=== PATIENT | female | born 1980 ===

== ENCOUNTER → 2017-03-19 | Outpatient (CLI) | payer OTHER ==
[~2017-03-19] MED LIST: ACYC5CRE4 TP; AMOX500T10 PO; CHOL500050 PO; CIPR-214 PO; ERYT1OIN3 OP; LEUP3.753 IM; TAMO20TA24 PO; TRIA15CR40 TP; [UNRECOGNIZED DRUG - OTHER] OP
--- NOTE | 2017-03-20 18:13 | RADIOLOGY IMAGING REPORT ---
FACILITY: [facility] [place] PATIENT NAME: PEGGY BYRD : [id number] MR: [id number] V: [id number] EXAM DATE: [id number] ORDERING PHYSICIAN: GAGE PARKER TECHNOLOGIST: Thao Mc EXAMINATION:TWO-DIMENSIONAL ECHOCARDIOGRAPH REASON:BREAST CA UNDERGOING CHEMO 2D Measurements (normal values in centimeters) LV endLV endRV endVent.LV PostAorticLeftPercent DiastolicSystolicDiastolicSeptumWallRootAtriumShortening (3.5-5.7)(0.9-2.6)(0.6-1.1)(0.6-1.1)(2.0-3.7)(1.9-4.0)(25-35%) [id number] STROKE VOLUME: 41.3ml ESTIMATED EJECTION FRACTION:60% PARASTERNAL LONG AXIS: Overall left ventricular systolic function does appear to be normal. The chamber sizes are normal with the right ventricle being the upper range of normal in size. Aortic valve & mitral valve both appear to open normally. No wall motion abnormalities are noted. Color examination of the valves reveals a trace of mitral insufficiency present. There is also a mild amount of tricuspid insufficiency present. Right ventricle appears to contract normally. The TAPSE is measured at 2.3 which is within normal ranges. PARASTERNAL SHORT AXIS: Overall left ventricular function again appears to be normal. No wall motion abnormalities are noted. The aortic valve is trileaflet in configuration & appears to open normally. Color examination of the valve was unremarkable. Trace of pulmonic insufficiency is also noted. APICAL FOUR AND TWO CHAMBER: Normal left ventricular systolic function. The aortic valve area & mitral valve area both measure within normal ranges at 2.5 & 3.1cm2 respectively. Left atrial & right atrial volumes are measured within normal ranges at 18.5 & 15.6ml/m2. Tricuspid regurgitation Vmax measured 3.08m/sec with an estimated right atrial pressure of 3mm Hg. There is a mild amount of tricuspid insufficiency noted. SUBCOSTAL VIEW: No pericardial effusion was noted. No atrioseptal or ventriculoseptal defects were appreciated. Doppler examination of the mitral valve in diastole was normal. Medial & lateral E prime velocities are also normal. OVERALL IMPRESSION: 1. Normal left ventricular ejection fraction of 60% with normal diastolic function. 2. Normal chamber sizes with the right ventricle being the upper range of normal in size. 3. A trileaflet aortic valve with no abnormalities. 4. There is a trace amount of mitral insufficiency with no mitral stenosis. 5. A trace amount of pulmonic insufficiency. 6. A mild amount of tricuspid insufficiency with an estimated right ventricular systolic pressures of 41mm Hg which does include an estimated right atrial pressure of 3mm Hg. 7. In comparison with the examination done on 12/08/2016 the only change is that the right ventricular pressures have slightly increased from 27 to 41mm Hg which is slightly elevated. Dictated by: Diana Browning M.D. on 03/19/2017 at 20:37 Transcribed by: MARGY on 03/20/2017 at 11:29 Approved by: Diana Browning M.D. on 03/20/2017 at 18:11 [facility]
== END ==
LOC: RAD 00:37
PROVIDERS: ATTEND Nurse Practitioner Family
DX: I34.0 Nonrheumatic mitral (valve) insufficiency (principal); I37.1 Nonrheumatic pulmonary valve insufficiency; I07.1 Rheumatic tricuspid insufficiency
CPT/HCPCS: 93306

== ENCOUNTER → 2017-03-25 | Outpatient (CLI) | payer OTHER ==
[~2017-03-25] MED LIST changes: +IOPAMIDOL 76% 75 ML INFUS BTL 75 ML ONE
--- NOTE | 2017-03-25 12:06 | RADIOLOGY IMAGING REPORT ---
FAC[place] [facility] [place]IENT NAME: Kyra Clifton : 1980 MR: [id number] V: [id number] EXAM DATE: ORDERING PHYSICIAN: CINDY MATHUR TECHNOLOGIST: Location: [facility] [place] Patient: Kyra Clifton : 1980 Visit/Account:[id number] Date of Sevice: 03/25/2017 CTA CHEST with contrast (PULM ANG) EXAMINATION: CTA of the chest with IV contrast History : Breast cancer, elevated d-dimer, shortness of breath TECHNIQUE: Pulmonary embolus protocol - Thin-slice axial imaging of the chest was performed during maximal pulmonary arterial opacification with intravenous nonionic iodinated contrast. 3D coronal sla b MIPs and 2D reconstructions in the coronal and sagittal planes were performed to aid in pulmonary e mbolus detection. Referral Nurse images have been stored on PACS. One of the following dose optimization techniques was utilized in the performance of this exam: Autom ated exposure control; adjustment of the mA and/or kV according to the patient's size; or use of an i terative reconstruction technique. Specific details can be referenced in the facility's radiology C T exam operational policy. Contrast: 75 cc of Isovue-370 COMPARISON STUDIES: CT scan 05/27/2016. FINDINGS: Please note that this exam is optimized for assessment of the pulmonary arteries and is not intended as a diagnostic study of the thoracic aorta, coronary arteries or venous structures. Angiographic Findings: Pulmonary arteries: There are no filling defects in the main, right, left, lobar, segmental or visual ized sub-segmental branches of the pulmonary arterial system Other vasculature: Left-sided chemotherapy port has the tip just in the right heart.. Additional non-angiographic findings: Lungs / Pleura: Calcified granuloma right middle lobe is noted image 50, unchanged. 2 mm micronodule right upper lobe image 26 is stable 2 mm micronodule right upper lobe image 29 is also stable. No new or developing pulmonary nodules.. Mediastinum / Heather: negative. Heart / Pericardium: negative. Lymph node assessment: negative Musculoskeletal / Body wall: Previously described spiculated density in the right superior breast i s once again noted may represent the treated primary neoplasm. No pathologic axillary or internal ma mmary adenopathy. Stable sclerosis of the T9 vertebral bodies noted potentially metastatic. There is also sclerosis of the T1 spinous process which is also likely metastatic in retrospect present on prior study but more sclerotic on the current exam. No new sites of osseous metastatic disease. Upper abdomen: negative IMPRESSION: 1. No evidence for pulmonary emboli the subsegmental level. 2. Sclerosis of the spinous process of T1 is more prominent than prior study and likely metastatic. Sclerosis of the T9 vertebral body is unchanged also potentially metastatic. 3. Ill-defined density superior right breast is unchanged presumably the primary neoplasm. 4. 2 tiny noncalcified micronodules in the right upper lobe are stable. Results were called to LILY Milian for CINDY MATHUR at 03/25/2017 12:01 PM. Report Dictated By: Thien Medrano MD at 03/25/2017 11:35 AM Report E-Signed By: Thien Medrano MD at 03/25/2017 12:02 PM WSN:[id number]
== END ==
LOC: CT 10:00
PROVIDERS: ATTEND Internal Medicine Medical Oncology
DX: J84.10 Pulmonary fibrosis, unspecified (principal); R91.8 Other nonspecific abnormal finding of lung field; M48.8X4 Other specified spondylopathies, thoracic region
CPT/HCPCS: 71275; Q9967

== ENCOUNTER → 2017-03-27 | Outpatient (CLI) | payer OTHER ==
[~2017-03-27] MED LIST changes: -IOPAMIDOL 76% 75 ML INFUS BTL 75 ML ONE
--- NOTE | 2017-03-27 19:58 | RADIOLOGY IMAGING REPORT ---
FACILITY: [facility] - [place] PATIENT NAME: Kyra Clifton : 1980 MR: [id number] V: [id number] EXAM DATE: ORDERING PHYSICIAN: CINDY MATHUR TECHNOLOGIST: Location: [facility] Patient: Kyra Clifton : 1980 Visit/Account:[id number] Date of Sevice: 03/27/2017 THYROID HISTORY: Localized swelling, left. Dysphasia. History of breast cancer. COMPARISON: None FINDINGS: SIZE: Right lobe: 5.2 x 2.0 x 2.0 cm Left lobe: 5.0 x 1.7 x 1.8 cm Isthmus: 4 mm Thyroid heterogeneity: Heterogeneous bilaterally NODULES: Right lobe: * None discrete. Left lobe: * Well-circumscribed, solid, slightly hypoechoic nodule with a lucent border measures 3.9 x 1.8 x 1. 4 cm. Isthmus: * None discrete. VASCULARITY: Within normal limits. ADDITIONAL FINDINGS: None. IMPRESSION: Solid nodule in the left lobe of the thyroid measuring 3.9 cm in greatest dimension. This is low to i ntermediate suspicion and biopsy is recommended based on size criteria. REFERENCE: 2015 [employer] Thy[employer] Management Guidelines for Adult Patients with Thyroid Nodules and D ifferentiated Thyroid Cancer: The [place] Thyroid [employer] Guidelines Task Force on Thyroid Nodul es and Differentiated Thyroid Cancer. SONOGRAPHIC PATTERNS: * Benign: Purely cystic nodules (no solid component); estimated risk of malignancy <1 percent; no bi opsy recommended. * Very Low Suspicion: Spongiform or partially cystic nodules without any of the sonographic features described in low, intermediate, or high suspicion patterns; estimated risk of malignancy <3 percent; consider FNA at > 2 cm (Observation without FNA is also a reasonable option). * Low Suspicion: Isoechoic or hyperechoic solid nodule, or partially cystic nodule with eccentric so lid areas, without microcalcification, irregular margin or ETE (extra-thyroidal extension), or taller than wide shape; estimated risk of malignancy 5-10 percent; recommend FNA at >1.5 cm. * Intermediate Suspicion: Hypoechoic solid nodule with smooth margins without microcalcifications, E TE (extra-thyroidal extension), or taller than wide shape; estimated risk of malignancy 10-20 percent ; recommend FNA at > 1 cm. * High Suspicion: Solid hypoechoic nodule or solid hypoechoic component of a partially cystic nodule with one or more of the following features: irregular margins (infiltrative, microlobulated), microc alcifications, taller than wide shape, rim calcifications with small extrusive soft tissue component, evidence of ETE (extra-thyroidal extension); estimated risk of malignancy >70-90 percent; recommend FNA at > 1 cm. NOTES: * Although a sonographically suspicious subcentimeter thyroid nodule without evidence of extrathyroi marlo extension or sonographically suspicious lymph nodes may be observed with close sonographic follow -up rather than pursuing immediate FNA, patient age and preference may modify decision-making. * A > 50% interval increase in nodule volume and/or development of new suspicious sonographic featur es are felt to be a valid reasons for potential re-aspiration of a nodule previously shown to have be nign FNA cytology. Report Dictated By: Kathrin Goodman MD at 03/27/2017 7:50 PM Report E-Signed By: Kathrin Goodman MD at 03/27/2017 7:54 PM WSN:[id number]
== END ==
LOC: US 14:01
PROVIDERS: ATTEND Internal Medicine Medical Oncology
DX: E04.1 Nontoxic single thyroid nodule (principal)
CPT/HCPCS: 76536

== ENCOUNTER → 2017-04-10 | Outpatient (CLI) | payer OTHER ==
[~2017-04-10] MED LIST changes: +ACYC-50 PO; +CEF300 PO; +CORED OT; +FLU150 PO
--- NOTE | 2017-04-10 10:20 | RADIOLOGY IMAGING REPORT ---
FACILITY: [facility] - [place] PATIENT NAME: Kyra Clifton : 1980 MR: [id number] V: [id number] EXAM DATE: ORDERING PHYSICIAN: KEVEN TUTTLE TECHNOLOGIST: Location: [facility] - [place] Patient: Kyra Clifton : 1980 Visit/Account:[id number] Date of Sevice: 04/10/2017 Exam type: CHEST PA AND LAT History: Shortness of breath Comparison: CTA chest report 2017. Findings: The lungs are free of acute effusions, infiltrates or edema. The cardiac silhouette is normal in siz e. The trachea is in midline. There is no evidence of a pneumothorax or pneumomediastinum. There i s an implanted left-sided port the distal tip projects at the aortocaval junction. IMPRESSION: 1. No acute cardiopulmonary process seen Report Dictated By: Lissette Gonzales MD at 04/10/2017 10:13 AM Report E-Signed By: Lissette Gonzales MD at 04/10/2017 10:15 AM WSN:[id number]
== END ==
LOC: RAD 09:15
PROVIDERS: ATTEND Nurse Practitioner Primary Care
DX: Z96.89 Presence of other specified functional implants (principal); Z95.828 Presence of other vascular implants and grafts
CPT/HCPCS: 71046

== ENCOUNTER 2017-04-14 08:55 | Outpatient (RCR) | payer OTHER ==
[2017-01-19 08:34] VITALS: BP 120/89
[2017-01-19] MEDS: NS(*) 0.9% 500 ML BAG 500 ML IV PRN (09:07)
[2017-01-19] MEDS: diphenhydrAMINE 25 MG CAP PO PRN (09:08)
[2017-01-19] MEDS: ACETAMINOPHEN 325 MG TAB PO PRN (09:08)
--- NOTE | 2017-01-19 09:18 | ONC Progress Note - NP.Halsey ---
Patient History Date of Service Jan 19, 2017 Reason For Visit/HPI Patient is seen in the clinic today for follow-up of her breast cancer. Patient continues with Herceptin and Perjeta and will receive cycle 37 today. Patient reports that she is feeling well today and has no new concerns. She continues to have stable back pain and takes no medication for it. She continues to have some tenderness in the left breast lateral aspect but cannot feel any palpable mass. She will follow with Dr. Mathur next week and is supposed to call and schedule a PET/CT scan prior to this appointment. Problem List (1) Metastatic breast carcinoma Oncology History 04-06-15 US pelvis- remarkable for a 2.6 left ovarian cyst and 1.3 cm right ovarian cyst. 04-06-15 Echocardiogram with an LVEF -of 63%- remains stable 04-06-15 Bilateral mammogram- further view recommended. Consider MRI breast if needed 05-04-15 Right mammogram with benign finding- repeat in 3-6 months: loosely grouped calcifications in the upper outer quadrant of the right breast with no pleomorphism unless the clinical findings warrant more immediate attention. 06-28-15: PET/CT showed uptake in endometrial cavity and a lesion on labia. Transvaginal US scheduled. 10-05-15 Echocardiogram EF was 67% Bilateral MRI of the breast completed on 11-12-15 BI-RADS 6: Multiple areas of clumped, non-mass like enhancement seen in the upper lateral and inferior lateral portion of the right breast similar in appearance to the prior outside MR dated 06/19/14 consistent with the history of known metastatic right breast cancer. Correlation with followup right mammogram is recommended given the previous findings of slightly increasing calcifications upper outer quadrant of the right breast as seen on the mammogram from 05/04/15. - recommendation was from mammogram on 05-04-15 Perjeta and Herceptin and Tamoxifen ongoing. Tumor markers remain stable in the 20 range- slightly increased to 25 on 05-22-15 and then back down to 23.6 on 06-29-15 and 23.0 on 07-20-1509/2615: CEA was 1.5 and CA 27.29 2 was 26. 10/29/15: CEA was 1.4, CA 27.29 was 26.8 01-23-16 CEA was 1.3 and CA 27.29 was 28.7 02/13/2016 CEA was 1.3 and CA 27.29 is 25.7 01/18/16: PET scan has SUV elevation from previous study in the thoracic and lumbar spine. MRI of Lumbar spine and thoracic spine completed on and remains relatively stable from previous. It is noted that patient has osseous metastases at T1 and T9 consistent with treated metastatic foci, and L4 treated pedicle and articular mass. Patient has not received any radiation therapy to the area. 02/11/15: MRI L/T spine: T1 and T9 osseous metastases as detailed above with imaging features consistent with treated metastatic foci. L4 left pedicle and articular mass metastasis as detailed above. The differential diagnosis would include a treated metastatic focus versus localized stress reaction without complete spondylolysis. L2-3 focal central disc protrusion (5 mm) resulting in localized secondary central canal stenosis due to thecal sac effacement from focal disc pathology. 03-05-16 breast disease discussed at tumor Board in [place]. Biopsy of T- spine lesion is recommended. No local breast surgery recommended. 03/21/16: PET/CT scan identified pre-existing osseous lesions that are slightly more metabolically active and on previous examination. Nodular densities in the lateral aspect of the right breast remains stable and have low level metabolic activity. There is no evidence of abnormal hyper metabolism elsewhere. Right upper lobe subpleural micronodules are stable and continued to be non- hypermetabolic. 03/26/2016: Patient will start Lupron 3.75 mg injections given monthly 2-3 months. She plans on having a complete hysterectomy in June when her sister can come to the [place] and help take care of her kids. Patient would like the 2nd dose to go through mail-order delivery due April 25. She was scheduled for 2-3 injections and will continue on oral tamoxifen daily. 05/13/2016 MRI T-spine: Bone metastasis and spinous process and bilateral lamina at T1 slightly increased enhancement, T9 unchanged 05/16/2016: Biopsy of T1: Positive for breast cancer primary, development of lower back pain 05/28/16 Mammogram identified a new calcification of the right upper breast. 06/04/2016 MRI L-spine, patient reports improving pain. Patient reports that she received 5 doses of radiation therapy to the L-spine in the [facility]. Patient also shares that she had her ovaries removed in [place]. Specific date is unknown. 07/05/[address] Mathur in [facility]: Discontinued Lupron, continue tamoxifen, PET/CT 08/04/2016 and follow-up, mammogram yearly, echocardiogram every 3 months, continue Herceptin and Perjeta. 08-22-16 left ventricular ejection fraction reported at 61% just decreased from previous 71% otherwise study remained stable when compared to previous 11/18/2016: Patient reports PET/CT scan reviewed with Dr. Mathur was essentially unremarkable. MRI of the lumbar spine shows resolution or stable previously treated metastatic disease. MRI of the breast scheduled for today was not completed due to not being authorized by insurance. This will be rescheduled. Patient reports that she will follow with the surgeon to discuss possible breast surgery. 12/08/2016: Left ventricular ejection fraction on 2-D echocardiogram is stable at 60% Medical History Family History: FH: breast cancer MOTHER Psychosocial History Social History Patient is and has 2 daughters Occupational History She is a at home Alcohol History She denies use Smoking History: No Smoking Status: Never Smoker Medications and Allergies Active Scripts Cholecalciferol (Vitamin D3) (VITAMIN D3) 50,000 Unit Capsule, 07541 UNIT PO weekly, #14 CAPSULE Prov:GAGE [facility]-, ONC 04/16/16 Triamcinolone Acetonide 0.1% Cr 15 Gm Tube (TRIAMCINOLONE ACETONIDE 0.1% CREAM) 15 Gm Cream..g., 15 GM TP BID, #1 TUBE 1 Refill Prov:[facility]AGE [facility]-, ONC 04/16/16 Tamoxifen Citrate (TAMOXIFEN CITRATE) 20 Mg Tablet, 20 MG PO DAILY, #90 TAB 3 Refills Prov:[facility]AGE [facility]-, ONC 03/20/16 Allergies: Coded Allergies: povidone-iodine (Verified Allergy, Mild, UNKNOWN, 03/19/15) soap (Verified Allergy, Mild, UNKNOWN, 03/19/15) chlorhexidine (Verified Allergy, Unknown, RASH, 07/03/15) nystatin (Verified Allergy, Unknown, 03/19/15) Review of System/Physical Exam Review of Systems All Systems Reviewed/Normal: Yes, Except as Noted Musculoskeletal: Positive for Bone Pain (stable back pain), Positive for Other (tenderness in the left axillary area of known breast cancer without evidence of palpable mass) Physical Exam Vital Signs Temperature: 96.9 Pulse: 81 BP Systolic: 120 BP Diastolic: 89 Respiratory Rate: 16 O2 SAT: 94 O2 Delivery: Room Air Height (inches) 62.00 Weight lb: 0 Weight oz: 3.0 Weight Kg (Dilip): 0.526254 Pain: 0 ECOG Score: 0 General: Stable, Well Developed, Well Nourished, Not In Acute Distress HEENT: No Trauma, No Conjunctivitis, No Icterus, No Mucositis, No Oral Thrush, Other (patient is due for a yearly dental exam and we'll schedule it in February) Neck: Supple Lungs: Clear to Auscultation Heart: Regular Rate, Regular Rhythm, No Gallops Abdomen: Soft and Nontender, No Hepatosplenomegaly, No Masses Extremities: No Cyanosis, No Clubbing, No Edema Lymphadenopathy: No Cervical, No Subclavicular, No Axillary Psychiatric: Mood appears normal, Affect appears normal Skin: No Skin Rashes, No Bruising, No Purpura Diagnostic Studies Diagnostic Studies Laboratory Laboratory Tests 01/19/17 08:30 Laboratory Tests 01/19/17 08:30: White Blood Count 3.8, Hemoglobin 13.3, Hematocrit 37.8, Platelet Count 176, Neutrophils (%) (Auto) 53.6, Lymphocytes (%) (Auto) 34.9, Neutrophils # (Auto) 2.0, Lymphocytes # (Auto) 1.3, Sodium Level 140, Potassium Level 4.0, Chloride Level 105, Carbon Dioxide Level 25, Blood Urea Nitrogen 15, Creatinine 0.70, Glomerular Filtration Rate Calc > 60.0, Random Glucose 88, Calcium Level 9.2, Total Bilirubin 0.6, Aspartate Amino Transf (AST/SGOT) 31, Alanine Aminotransferase (ALT/SGPT) 57, Alkaline Phosphatase 50, Total Protein 7.0, Albumin 3.7 Assessment and Plan Assessment & Plan 1. Metastatic breast cancer. Patient is a 36 year old female who initially presented with painful palpable lump in her right breast in early March,. Mammogram showed moderately dense fibroglandular tissue and a spiculated nodule measuring 1.7 cm in the upper outer breast. Right upper outer breast cancer - primary. She was also found to have metastatic disease in her bone- L spine, making her stage 4. PET scan completed on 03/21/2016 showed increased hypermetabolic activity in the spine without other areas of disease process with activity. She started on Lupron 3.75 mg injection given monthly on 03/28/2016 to complete 2-3 months followed with hysterectomy in June which was completed. . Patient reports completing radiation therapy to 5 doses to the L-spine status post biopsy identifying metastatic disease consistent with primary breast cancer which was completed in [place]. Repeat MRI indicates stable disease which was completed November 2016. PET/CT scan was without evidence of new disease. Patient is scheduled for MRI of the breast and surgical consult to discuss treatment options for palpable mass and pain in the left breast in December. She will continue on Herceptin and Perjeta every 21 days and follow with myself in the [facility]. Patient will continue on tamoxifen 20 mg daily. 2-D echocardiogram for evaluation of left ventricular ejection fraction was reported at 60% on 12/08/2016. Tumor markers reviewed today and remained stable Patient will follow with Dr. Mathur next week with a PET/CT scan prior 2. The patient previously has had a slight elevation in ALT. I will continue to monitor labs prior to each Herceptin/Perjeta- labs are normal today 3. Vitamin D deficiency: On 03/05/2016 patient's vitamin D level was 15. Patient was encouraged to increase vitamin D oral intake. However reports that she did not start any medication. Repeat vitamin D level on 03/26/2016 was at 16. Patient was started on 50,000 units of vitamin D weekly 7 weeks with a recommendation of 2000 units daily. Last vitamin D level was reported at 25 on 10/28/2016. Patient has not continued with 2000 units daily of vitamin D but is encouraged to continue. I personally spent a total of 20 minutes. Of that 15 minutes was counseling/ coordination of patient's care. See my note above for details. Copies to: CINDY MATHUR MD, NANCY J [employer], ONC Jan 19, 2017 09:18
[2017-01-19] MEDS: HEPARIN FLSH (PORT) 500 UN/5ML IVP PRN (11:00)
[2017-01-19 11:17] VITALS: BP 120/79
[2017-02-10 10:26] VITALS: BP 120/88
[2017-02-10] MEDS: NS(*) 0.9% 500 ML BAG 500 ML IV PRN (11:13)
[2017-02-10] MEDS: diphenhydrAMINE 25 MG CAP PO PRN (11:13)
[2017-02-10] MEDS: ACETAMINOPHEN 325 MG TAB PO PRN (11:13)
--- NOTE | 2017-02-10 11:20 | ONC Progress Note - NP.Halsey ---
Patient History Date of Service Feb 10, 2017 Reason For Visit/HPI Patient is seen in the clinic today for follow-up of her breast cancer. Patient continues with Herceptin and Perjeta and will receive cycle 38 today. Overall patient is feeling well. She continues to have mild back pain in the thoracic area off and on. She does not take any pain medications at this time. Patient shares that she recently followed with Dr. Gastelum and had a PET CT scan completed on 02/03/2017. PET/CT is remarkable for 2 nodular densities in the right breast that have increased in size, a new hypermetabolic 0.8 cm right subpectoral lymph node, and a pre-existing sclerotic lesion in the posterior elements of T1 which is now slightly hypermetabolic. Patient shares that she review these results with Dr. Gastelum and they discussed bilateral mastectomy. Patient previously has consult it with breast surgeon. She is interested in having bilateral reconstruction post mastectomy. Patient is emotional today regarding this decision. She is trying to get her sister to come back in to the [facility] to watch her children. She is looking at April for her surgery date. In review of vitamin D level which has been low, a short reports that she is currently not taking vitamin D. She does not like the smell of it and it makes her nauseous. We did discuss the use of chewable vitamin D. In addition previously I have prescribed 50,000 units weekly 12 weeks and patient is interested in this. Oncology History 04-06-15 US pelvis- remarkable for a 2.6 left ovarian cyst and 1.3 cm right ovarian cyst. 04-06-15 Echocardiogram with an LVEF -of 63%- remains stable 04-06-15 Bilateral mammogram- further view recommended. Consider MRI breast if needed 05-04-15 Right mammogram with benign finding- repeat in 3-6 months: loosely grouped calcifications in the upper outer quadrant of the right breast with no pleomorphism unless the clinical findings warrant more immediate attention. 06-28-15: PET/CT showed uptake in endometrial cavity and a lesion on labia. Transvaginal US scheduled. 10-05-15 Echocardiogram EF was 67% Bilateral MRI of the breast completed on 11-12-15 BI-RADS 6: Multiple areas of clumped, non-mass like enhancement seen in the upper lateral and inferior lateral portion of the right breast similar in appearance to the prior outside MR dated 06/19/14 consistent with the history of known metastatic right breast cancer. Correlation with followup right mammogram is recommended given the previous findings of slightly increasing calcifications upper outer quadrant of the right breast as seen on the mammogram from 05/04/15. - recommendation was from mammogram on 05-04-15 Perjeta and Herceptin and Tamoxifen ongoing. Tumor markers remain stable in the 20 range- slightly increased to 25 on 05-22-15 and then back down to 23.6 on 06-29-15 and 23.0 on 07-20-1509/2615: CEA was 1.5 and CA 27.29 2 was 26. 10/29/15: CEA was 1.4, CA 27.29 was 26.8 01-23-16 CEA was 1.3 and CA 27.29 was 28.7 02/13/2016 CEA was 1.3 and CA 27.29 is 25.7 01/18/16: PET scan has SUV elevation from previous study in the thoracic and lumbar spine. MRI of Lumbar spine and thoracic spine completed on and remains relatively stable from previous. It is noted that patient has osseous metastases at T1 and T9 consistent with treated metastatic foci, and L4 treated pedicle and articular mass. Patient has not received any radiation therapy to the area. 02/11/15: MRI L/T spine: T1 and T9 osseous metastases as detailed above with imaging features consistent with treated metastatic foci. L4 left pedicle and articular mass metastasis as detailed above. The differential diagnosis would include a treated metastatic focus versus localized stress reaction without complete spondylolysis. L2-3 focal central disc protrusion (5 mm) resulting in localized secondary central canal stenosis due to thecal sac effacement from focal disc pathology. 03-05-16 breast disease discussed at tumor Board in [place]. Biopsy of T- spine lesion is recommended. No local breast surgery recommended. 03/21/16: PET/CT scan identified pre-existing osseous lesions that are slightly more metabolically active and on previous examination. Nodular densities in the lateral aspect of the right breast remains stable and have low level metabolic activity. There is no evidence of abnormal hyper metabolism elsewhere. Right upper lobe subpleural micronodules are stable and continued to be non- hypermetabolic. 03/26/2016: Patient will start Lupron 3.75 mg injections given monthly 2-3 months. She plans on having a complete hysterectomy in June when her sister can come to the [place] and help take care of her kids. Patient would like the 2nd dose to go through mail-order delivery due April 25. She was scheduled for 2-3 injections and will continue on oral tamoxifen daily. 05/13/2016 MRI T-spine: Bone metastasis and spinous process and bilateral lamina at T1 slightly increased enhancement, T9 unchanged 05/16/2016: Biopsy of T1: Positive for breast cancer primary, development of lower back pain 05/28/16 Mammogram identified a new calcification of the right upper breast. 06/04/2016 MRI L-spine, patient reports improving pain. Patient reports that she received 5 doses of radiation therapy to the L-spine in the [facility]. Patient also shares that she had her ovaries removed in [place]. Specific date is unknown. 06/16/2016: Salpingo-oophorectomy Lupron discontinued 07/05/[address] Gastelum in [facility]: Continue tamoxifen, PET/CT 08/04/2016 and follow-up, mammogram yearly, echocardiogram every 3 months, continue Herceptin and Perjeta. 08/01/2016: PET/CT shows decreasing blastic bone disease previously seen. Mild glucose activity in the right breast slightly increased and a new focus of warm activity in the superior right breast. Warm activity in the subcentimeter right inguinal lymph node slightly increased. 7--17 left ventricular ejection fraction reported at 61% just decreased from previous 71% otherwise study remained stable when compared to previous 11/18/2016: Patient reports PET/CT scan reviewed with Dr. Gastelum was essentially unremarkable. MRI of the lumbar spine shows resolution or stable previously treated metastatic disease. MRI of the breast scheduled for today was not completed due to not being authorized by insurance. This will be rescheduled. Patient reports that she will follow with the surgeon to discuss possible breast surgery. 12/08/2016: Left ventricular ejection fraction on 2-D echocardiogram is stable at 60% 02/03/2017: PET/CT scan remarkable for 2 nodular densities in the right breast that it increased in size and hypermetabolic. There is a new hypermetabolic 0.8 cm right subpectoral node. Pre-existing sclerotic lesion in the posterior elements of T1 is now slightly hypermetabolic. Patient has consult did with surgery and is thinking about bilateral mastectomy with breast reconstruction in April. Medical History Family History: FH: breast cancer MOTHER Psychosocial History Social History Patient is and has 2 daughters Occupational History She is a at home Alcohol History She denies use Smoking History: No Smoking Status: Never Smoker Medications and Allergies Active Scripts Cholecalciferol (Vitamin D3) (VITAMIN D3) 50,000 Unit Capsule, 83864 UNIT PO weekly, #14 CAPSULE Prov:[facility]-, ONC 02/10/17 Triamcinolone Acetonide 0.1% Cr 15 Gm Tube (TRIAMCINOLONE ACETONIDE 0.1% CREAM) 15 Gm Cream..g., 15 GM TP BID, #1 TUBE 1 Refill Prov:[facility]-, ONC 04/16/16 Tamoxifen Citrate (TAMOXIFEN CITRATE) 20 Mg Tablet, 20 MG PO DAILY, #90 TAB 3 Refills Prov:[facility]-, ONC 03/20/16 Allergies: Coded Allergies: povidone-iodine (Verified Allergy, Mild, UNKNOWN, 03/19/15) soap (Verified Allergy, Mild, UNKNOWN, 03/19/15) chlorhexidine (Verified Allergy, Unknown, RASH, 07/03/15) nystatin (Verified Allergy, Unknown, 03/19/15) Review of System/Physical Exam Review of Systems All Systems Reviewed/Normal: Yes, Except as Noted Psychiatric: Depression, Other (patient is tearful today regarding her current disease status and the need for surgery.) Physical Exam Vital Signs Temperature: 97.8 Pulse: 94 BP Systolic: 120 BP Diastolic: 88 Respiratory Rate: 16 O2 SAT: 97 O2 Delivery: Room Air Height (inches) 62.00 Weight lb: 0 Weight oz: 3.0 Weight Kg (Dilip): 0.429815 Pain: 0 ECOG Score: 0 General: Stable, Well Developed, Well Nourished, Not In Acute Distress HEENT: No Conjunctivitis, No Mucositis, No Oral Thrush Neck: Supple Lungs: Clear to Auscultation Heart: Regular Rate, Regular Rhythm, No Gallops Abdomen: Soft and Nontender, No Hepatosplenomegaly, No Masses Extremities: No Cyanosis, No Clubbing, No Edema Lymphadenopathy: No Cervical, No Subclavicular, No Axillary Psychiatric: Mood appears normal, Affect appears normal, Other (patient is emotional today regarding upcoming surgery decision) Skin: No Skin Rashes, No Bruising, No Purpura Diagnostic Studies Diagnostic Studies Laboratory Laboratory Tests 02/10/17 10:07 Laboratory Tests 02/10/17 10:07: White Blood Count 6.1, Hemoglobin 13.4, Hematocrit 38.7, Platelet Count 197, Neutrophils (%) (Auto) 57.2, Lymphocytes (%) (Auto) 32.3, Neutrophils # (Auto) 3.5, Lymphocytes # (Auto) 2.0, Sodium Level 139, Potassium Level 4.1, Chloride Level 105, Carbon Dioxide Level 26, Blood Urea Nitrogen 10, Creatinine 0.60, Glomerular Filtration Rate Calc > 60.0, Random Glucose 81, Calcium Level 9.1, Total Bilirubin 0.5, Aspartate Amino Transf (AST/SGOT) 35, Alanine Aminotransferase (ALT/SGPT) 43, Alkaline Phosphatase 70, Total Protein 7.2, Albumin 3.6 Assessment and Plan Assessment & Plan 1. Metastatic breast cancer. Patient is a 36 year old female who initially presented with painful palpable lump in her right breast in early March,. Mammogram showed moderately dense fibroglandular tissue and a spiculated nodule measuring 1.7 cm in the upper outer breast. Right upper outer breast cancer - primary. She was also found to have metastatic disease in her bone- L spine, making her stage 4. PET scan completed on 03/21/2016 showed increased hypermetabolic activity in the spine without other areas of disease process with activity. She started on Lupron 3.75 mg injection given monthly on 03/28/2016 to complete 2-3 months followed with hysterectomy in June which was completed. . Patient reports completing radiation therapy to 5 doses to the L-spine status post biopsy identifying metastatic disease consistent with primary breast cancer which was completed in [place]. Repeat MRI indicates stable disease which was completed November 2016. PET/CT scan was without evidence of new disease. Patient had a MRI of the breast and surgical consult to discuss treatment options for palpable mass in the left breast in December. She will revisit with the surgeon in the near future to discuss bilateral mastectomy with breast reconstruction possibly in April of this year. She will continue on Herceptin and Perjeta every 21 days and follow with myself in the [facility]. Patient will continue on tamoxifen 20 mg daily. 2-D echocardiogram for evaluation of left ventricular ejection fraction was reported at 60% on 12/08/2016. Tumor markers reviewed today. They do not reflect the increasing disease noted on PET CT scan completed on 02/03/2017. Patient is recently followed with Dr. Gastelum to discuss these results. 2. The patient previously has had a slight elevation in ALT. I will continue to monitor labs prior to each Herceptin/Perjeta- labs are normal today- we will continue to monitor 3. Vitamin D deficiency: On 03/05/2016 patient's vitamin D level was 15. Patient was encouraged to increase vitamin D oral intake. However reports that she did not start any medication. Repeat vitamin D level on 03/26/2016 was at 16. Patient was started on 50,000 units of vitamin D weekly 7 weeks with a recommendation of 2000 units daily. Last vitamin D level was reported at 25 on 10/28/2016. Patient has not continued with 2000 units daily of vitamin D but is encouraged to continue. She is more interested in the 50,000 units weekly. I will send a prescription to [facility] today. Patient then is encouraged to do oral 2000 units daily and try the chewables to see if they are better tolerated. 4. Bone metastases identified on PET/CT scan on 02/03/2017: Continue to monitor thoracic area with hypermetabolic disease at T1. 5. Patient is scheduled to follow with Dr. Gastelum in 3 months I personally spent a total of 20 minutes. Of that 15 minutes was counseling/ coordination of patient's care. See my note above for details. GAGE PARKER [employer], ONC Feb 10, 2017 11:20
[2017-02-10 12:58] VITALS: BP 117/81
[2017-02-10] MEDS: HEPARIN FLSH (PORT) 500 UN/5ML IVP PRN (13:02)
[2017-03-03 08:09] VITALS: BP 112/67
[2017-03-03] MEDS: diphenhydrAMINE 25 MG CAP PO PRN (08:42)
[2017-03-03] MEDS: NS(*) 0.9% 500 ML BAG 500 ML IV PRN (08:43)
[2017-03-03] MEDS: HEPARIN FLSH (PORT) 500 UN/5ML IVP PRN (08:43)
--- NOTE | 2017-03-03 09:16 | ONC Progress Note - NP.Halsey ---
Patient History Date of Service Mar 03, 2017 Reason For Visit/HPI Patient is seen in the clinic today for follow-up of her breast cancer. Patient continues with Herceptin and Perjeta and will receive cycle 39 today. She reports that she is feeling well and has not had any of the flulike symptoms that have been going around [place]. She has recently consult did with a breast surgeon and plastic surgeon to discuss mastectomy and breast reconstruction. She is scheduled to follow them on March 12. She reports that she will also follow with Dr. Mathur on March 19. She continues to have pain in her back which remains relatively stable. We discussed the use of vitamin D and she is currently taking the 50,000 units a week dose. She will try the oral gummy vitamin D tablets and see if she can tolerate them. She has no concerns today. Overall patient is feeling well. She continues to have mild back pain in the thoracic area off and on. She does not take any pain medications at this time. Patient shares that she recently followed with Dr. Mathur and had a PET CT scan completed on 02/03/2017. PET/CT is remarkable for 2 nodular densities in the right breast that have increased in size, a new hypermetabolic 0.8 cm right subpectoral lymph node, and a pre-existing sclerotic lesion in the posterior elements of T1 which is now slightly hypermetabolic. Patient shares that she review these results with Dr. Mathur and they discussed bilateral mastectomy. Patient previously has consult it with breast surgeon. She is interested in having bilateral reconstruction post mastectomy. Patient is emotional today regarding this decision. She is trying to get her sister to come [place]. She is looking at April for her surgery date. In review of vitamin D level which has been low, a short reports that she is currently not taking vitamin D. She does not like the smell of it and it makes her nauseous. We did discuss the use of chewable vitamin D. In addition previously I have prescribed 50,000 units weekly 12 weeks and patient is interested in this. Oncology History 04-06-15 US pelvis- remarkable for a 2.6 left ovarian cyst and 1.3 cm right ovarian cyst. 04-06-15 Echocardiogram with an LVEF -of 63%- remains stable 04-06-15 Bilateral mammogram- further view recommended. Consider MRI breast if needed 05-04-15 Right mammogram with benign finding- repeat in 3-6 months: loosely grouped calcifications in the upper outer quadrant of the right breast with no pleomorphism unless the clinical findings warrant more immediate attention. 06-28-15: PET/CT showed uptake in endometrial cavity and a lesion on labia. Transvaginal US scheduled. 10-05-15 Echocardiogram EF was 67% Bilateral MRI of the breast completed on 11-12-15 BI-RADS 6: Multiple areas of clumped, non-mass like enhancement seen in the upper lateral and inferior lateral portion of the right breast similar in appearance to the prior outside MR dated 06/19/14 consistent with the history of known metastatic right breast cancer. Correlation with followup right mammogram is recommended given the previous findings of slightly increasing calcifications upper outer quadrant of the right breast as seen on the mammogram from 05/04/15. - recommendation was from mammogram on 05-04-15 Perjeta and Herceptin and Tamoxifen ongoing. Tumor markers remain stable in the 20 range- slightly increased to 25 on 05-22-15 and then back down to 23.6 on 06-29-15 and 23.0 on 07-20-1509/2615: CEA was 1.5 and CA 27.29 2 was 26. 9: CEA was 1.4, CA 27.29 was 26.8 01-23-16 CEA was 1.3 and CA 27.29 was 28.7 02/13/2016 CEA was 1.3 and CA 27.29 is 25.7 01/18/16: PET scan has SUV elevation from previous study in the thoracic and lumbar spine. MRI of Lumbar spine and thoracic spine completed on and remains relatively stable from previous. It is noted that patient has osseous metastases at T1 and T9 consistent with treated metastatic foci, and L4 treated pedicle and articular mass. Patient has not received any radiation therapy to the area. 02/11/15: MRI L/T spine: T1 and T9 osseous metastases as detailed above with imaging features consistent with treated metastatic foci. L4 left pedicle and articular mass metastasis as detailed above. The differential diagnosis would include a treated metastatic focus versus localized stress reaction without complete spondylolysis. L2-3 focal central disc protrusion (5 mm) resulting in localized secondary central canal stenosis due to thecal sac effacement from focal disc pathology. 03-05-16 breast disease discussed at tumor Board in [place]. Biopsy of T- spine lesion is recommended. No local breast surgery recommended. 03/21/16: PET/CT scan identified pre-existing osseous lesions that are slightly more metabolically active and on previous examination. Nodular densities in the lateral aspect of the right breast remains stable and have low level metabolic activity. There is no evidence of abnormal hyper metabolism elsewhere. Right upper lobe subpleural micronodules are stable and continued to be non- hypermetabolic. 03/26/2016: Patient will start Lupron 3.75 mg injections given monthly 2-3 months. She plans on having a complete hysterectomy in June when her sister can come to the [facility] and help take care of her kids. Patient would like the 2nd dose to go through mail-order delivery due April 25. She was scheduled for 2-3 injections and will continue on oral tamoxifen daily. 05/13/2016 MRI T-spine: Bone metastasis and spinous process and bilateral lamina at T1 slightly increased enhancement, T9 unchanged 05/16/2016: Biopsy of T1: Positive for breast cancer primary, development of lower back pain 05/28/16 Mammogram identified a new calcification of the right upper breast. 06/04/2016 MRI L-spine, patient reports improving pain. Patient reports that she received 5 doses of radiation therapy to the L-spine in the [place] clinic. Patient also shares that she had her ovaries removed in [place]. Specific date is unknown. 06/16/2016: Salpingo-oophorectomy Lupron discontinued 07/05/[address] Mathur in [place] clinic: Continue tamoxifen, PET/CT 08/04/2016 and follow-up, mammogram yearly, echocardiogram every 3 months, continue Herceptin and Perjeta. 08/01/2016: PET/CT shows decreasing blastic bone disease previously seen. Mild glucose activity in the right breast slightly increased and a new focus of warm activity in the superior right breast. Warm activity in the subcentimeter right inguinal lymph node slightly increased. 08-22-16 left ventricular ejection fraction reported at 61% just decreased from previous 71% otherwise study remained stable when compared to previous 11/18/2016: Patient reports PET/CT scan reviewed with Dr. Mathur was essentially unremarkable. MRI of the lumbar spine shows resolution or stable previously treated metastatic disease. MRI of the breast scheduled for today was not completed due to not being authorized by insurance. This will be rescheduled. Patient reports that she will follow with the surgeon to discuss possible breast surgery. 12/08/2016: Left ventricular ejection fraction on 2-D echocardiogram is stable at 60% 02/03/2017: PET/CT scan remarkable for 2 nodular densities in the right breast that it increased in size and hypermetabolic. There is a new hypermetabolic 0.8 cm right subpectoral node. Pre-existing sclerotic lesion in the posterior elements of T1 is now slightly hypermetabolic. Patient has consult did with surgery and is thinking about bilateral mastectomy with breast reconstruction in April. 2017: Vitamin D level noted to be at 27. Patient started on 50,000 units of vitamin D weekly and encouraged to take 2000 units daily. Patient is not compliant with the daily dose. 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-, ONC 02/10/17 Triamcinolone Acetonide 0.1% Cr 15 Gm Tube (TRIAMCINOLONE ACETONIDE 0.1% CREAM) 15 Gm Cream..g., 15 GM TP BID, #1 TUBE 1 Refill Prov:GAGE PARKER [facility]-, ONC 04/16/16 Tamoxifen Citrate (TAMOXIFEN CITRATE) 20 Mg Tablet, 20 MG PO DAILY, #90 TAB 3 Refills Prov:GAGE PARKER [facility]-, ONC 03/20/16 Allergies: Coded Allergies: povidone-iodine (Verified Allergy, Mild, UNKNOWN, 03/19/15) soap (Verified Allergy, Mild, UNKNOWN, 03/19/15) chlorhexidine (Verified Allergy, Unknown, RASH, 07/03/15) nystatin (Verified Allergy, Unknown, 03/19/15) Review of System/Physical Exam Review of Systems All Systems Reviewed/Normal: Yes, Except as Noted Hematologic: Positive for Fatigue Musculoskeletal: Positive for Bone Pain Physical Exam Vital Signs Temperature: 97.0 Pulse: 88 BP Systolic: 112 BP Diastolic: 67 Respiratory Rate: 15 O2 SAT: 96 O2 Delivery: Room Air Height (inches) 62.00 Weight lb: 0 Weight oz: 3.0 Weight Kg (Dilip): 0.995631 Pain: 0 ECOG Score: 0 General: Stable, Well Developed, Well Nourished, Not In Acute Distress HEENT: No Trauma, No Conjunctivitis, No Icterus Neck: Supple Lungs: Clear to Auscultation Heart: Regular Rate, Regular Rhythm, No Gallops Abdomen: No Hepatosplenomegaly, No Masses Extremities: No Cyanosis, No Clubbing, No Edema Lymphadenopathy: No Cervical Psychiatric: Mood appears normal, Affect appears normal, Other (patient is slightly anxious regarding surgical procedure with mastectomy and breast reconstruction) Skin: No Skin Rashes, No Bruising, No Purpura Diagnostic Studies Diagnostic Studies Laboratory Item Value Date Time Vitamin D 25-Hydroxy 27 ng/ml L 02/10/17 1007 Carcinoembryonic Antigen 1.2 ng/mL 01/19/17 0830 CA 27-29 Antigen Serial Monitoring 25.5 U/mL 01/19/17 0830 Laboratory Tests 03/03/17 08:05 Laboratory Tests 02/10/17 10:07: Vitamin D 25-Hydroxy 27 03/03/17 08:05: White Blood Count 5.6, Hemoglobin 13.3, Hematocrit 37.7, Platelet Count 192, Neutrophils (%) (Auto) 58.2, Lymphocytes (%) (Auto) 28.7, Neutrophils # (Auto) 3.3, Lymphocytes # (Auto) 1.6, Sodium Level 140, Potassium Level 3.8, Chloride Level 105, Carbon Dioxide Level 24, Blood Urea Nitrogen 15, Creatinine 0.70, Glomerular Filtration Rate Calc > 60.0, Random Glucose 88, Calcium Level 9.2, Total Bilirubin 0.7, Aspartate Amino Transf (AST/SGOT) 25, Alanine Aminotransferase (ALT/SGPT) 50, Alkaline Phosphatase 81, Total Protein 7.3, Albumin 3.8 Assessment and Plan Assessment & Plan 1. Metastatic breast cancer. Patient is a 36 year old female who initially presented with painful palpable lump in her right breast in early March,. Mammogram showed moderately dense fibroglandular tissue and a spiculated nodule measuring 1.7 cm in the upper outer breast. Right upper outer breast cancer - primary. She was also found to have metastatic disease in her bone- L spine, making her stage 4. PET scan completed on 03/21/2016 showed increased hypermetabolic activity in the spine without other areas of disease process with activity. She started on Lupron 3.75 mg injection given monthly on 03/28/2016 to complete 2-3 months followed with hysterectomy in June which was completed. . Patient reports completing radiation therapy to 5 doses to the L-spine status post biopsy identifying metastatic disease consistent with primary breast cancer which was completed in [place]. Repeat MRI indicates stable disease which was completed November 2016. PET/CT scan was without evidence of new disease. Patient had a MRI of the breast and surgical consult to discuss treatment options for palpable mass in the left breast in December. She followed with the surgeon to discuss bilateral mastectomy with breast reconstruction possibly in April of this year. She will continue on Herceptin and Perjeta every 21 days and follow with myself in the [place] clinic. Patient will continue on tamoxifen 20 mg daily. 2-D echocardiogram for evaluation of left ventricular ejection fraction was reported at 60% on 12/08/2016. Patient is scheduled for her next echocardiogram on 03/16/2017. Tumor markers reviewed today and they remain relatively stable. They do not reflect the increasing disease noted on PET CT scan completed on 02/03/2017. Patient will follow with Dr. Mathur in March 2. The patient previously has had a slight elevation in ALT. I will continue to monitor labs prior to each Herceptin/Perjeta-labs have normalized. We will continue to monitor with each therapy session. 3. Vitamin D deficiency: On 03/05/2016 patient's vitamin D level was 15. Patient was encouraged to increase vitamin D oral intake. However reports that she did not start any medication. Repeat vitamin D level on 03/26/2016 was at 16. Patient was started on 50,000 units of vitamin D weekly 7 weeks with a recommendation of 2000 units daily. Last vitamin D level was reported at 25 on 10/28/2016. Patient has not continued with 2000 units daily of vitamin D but is encouraged to continue. She was interested in the 50,000 units weekly so this was started with her last office visit in February 2017. 4. Bone metastases identified on PET/CT scan on 02/03/2017: Continue to monitor thoracic area with hypermetabolic disease at T1. 5. Patient is scheduled to follow with Dr. Mathur in March. I personally spent a total of 20 minutes. Of that 15 minutes was counseling/ coordination of patient's care. See my note above for details. Copies to: CINDY MATHUR MD, NANCY J [employer]TR[employer]IC WELDING MACHINE OPERATOR-BC, ONC Mar 03, 2017 09:16
[2017-03-23 08:35] VITALS: BP 118/71
[2017-03-23 08:54] LABS: PLATELET COUNT, AUTOMATED 256 K/uL (150-450)
[2017-03-23] MEDS: NS(*) 0.9% 500 ML BAG 500 ML IV PRN (09:00)
[2017-03-23] MEDS: diphenhydrAMINE 25 MG CAP PO PRN (09:38)
[2017-03-23] MEDS: ACETAMINOPHEN 325 MG TAB PO PRN (09:38)
--- NOTE | 2017-03-23 10:59 | ONC Progress Note - NP.Halsey ---
Patient History Date of Service Mar 23, 2017 Reason For Visit/HPI Patient is seen in the clinic today for follow-up of her breast cancer. Patient continues with Herceptin and Perjeta and will receive cycle 40 today. She reports that she has had a sore throat with fever and chills off and on for the last 7-10 days. She denies bony aches or body aches. She has an earache on the left side. She denies any sinus discharge or sinus pain. She reports that her children have been healthy. She recently flew to [place]. She has been taking Tylenol for symptom relief. Patient recently completed a 2-D echocardiogram for left ventricular ejection fraction. Listed other results. Patient has been referred to cardiology. OVERALL IMPRESSION: 1. Normal left ventricular ejection fraction of 60% with normal diastolic function. 2. Normal chamber sizes with the right ventricle being the upper range of normal in size. 3. A trileaflet aortic valve with no abnormalities. 4. There is a trace amount of mitral insufficiency with no mitral stenosis. 5. A trace amount of pulmonic insufficiency. 6. A mild amount of tricuspid insufficiency with an estimated right ventricular systolic pressures of 41mm Hg which does include an estimated right atrial pressure of 3mm Hg. 7. In comparison with the examination done on 12/08/2016 the only change is that the right ventricular pressures have slightly increased from 27 to 41mm Hg which is slightly elevated. Problem List (1) Vitamin D deficiency (2) Bone metastasis (3) Estrogen receptor positive (4) Metastatic breast carcinoma Oncology History 04-06-15 US pelvis- remarkable for a 2.6 left ovarian cyst and 1.3 cm right ovarian cyst. 04-06-15 Echocardiogram with an LVEF -of 63%- remains stable 04-06-15 Bilateral mammogram- further view recommended. Consider MRI breast if needed 05-04-15 Right mammogram with benign finding- repeat in 3-6 months: loosely grouped calcifications in the upper outer quadrant of the right breast with no pleomorphism unless the clinical findings warrant more immediate attention. 06-28-15: PET/CT showed uptake in endometrial cavity and a lesion on labia. Transvaginal US scheduled. 10-05-15 Echocardiogram EF was 67% Bilateral MRI of the breast completed on 11-12-15 BI-RADS 6: Multiple areas of clumped, non-mass like enhancement seen in the upper lateral and inferior lateral portion of the right breast similar in appearance to the prior outside MR dated 06/19/14 consistent with the history of known metastatic right breast cancer. Correlation with followup right mammogram is recommended given the previous findings of slightly increasing calcifications upper outer quadrant of the right breast as seen on the mammogram from 05/04/15. - recommendation was from mammogram on 05-04-15 Perjeta and Herceptin and Tamoxifen ongoing. Tumor markers remain stable in the 20 range- slightly increased to 25 on 05-22-15 and then back down to 23.6 on 06-29-15 and 23.0 on 07-20-1509/2615: CEA was 1.5 and CA 27.29 2 was 26. 10/29/15: CEA was 1.4, CA 27.29 was 26.8 01-23-16 CEA was 1.3 and CA 27.29 was 28.7 02/13/2016 CEA was 1.3 and CA 27.29 is 25.7 01/18/16: PET scan has SUV elevation from previous study in the thoracic and lumbar spine. MRI of Lumbar spine and thoracic spine completed on and remains relatively stable from previous. It is noted that patient has osseous metastases at T1 and T9 consistent with treated metastatic foci, and L4 treated pedicle and articular mass. Patient has not received any radiation therapy to the area. 02/11/15: MRI L/T spine: T1 and T9 osseous metastases as detailed above with imaging features consistent with treated metastatic foci. L4 left pedicle and articular mass metastasis as detailed above. The differential diagnosis would include a treated metastatic focus versus localized stress reaction without complete spondylolysis. L2-3 focal central disc protrusion (5 mm) resulting in localized secondary central canal stenosis due to thecal sac effacement from focal disc pathology. 03-05-16 breast disease discussed at tumor Board in [place]. Biopsy of T- spine lesion is recommended. No local breast surgery recommended. 03/21/16: PET/CT scan identified pre-existing osseous lesions that are slightly more metabolically active and on previous examination. Nodular densities in the lateral aspect of the right breast remains stable and have low level metabolic activity. There is no evidence of abnormal hyper metabolism elsewhere. Right upper lobe subpleural micronodules are stable and continued to be non- hypermetabolic. 03/26/2016: Patient will start Lupron 3.75 mg injections given monthly 2-3 months. She plans on having a complete hysterectomy in June when her sister can come to the [place] and help take care of her kids. Patient would like the 2nd dose to go through mail-order delivery due April 25. She was scheduled for 2-3 injections and will continue on oral tamoxifen daily. 05/13/2016 MRI T-spine: Bone metastasis and spinous process and bilateral lamina at T1 slightly increased enhancement, T9 unchanged 05/16/2016: Biopsy of T1: Positive for breast cancer primary, development of lower back pain 05/28/16 Mammogram identified a new calcification of the right upper breast. 06/04/2016 MRI L-spine, patient reports improving pain. Patient reports that she received 5 doses of radiation therapy to the L-spine in the [facility]. Patient also shares that she had her ovaries removed in [place]. Specific date is unknown. 06/16/2016: Salpingo-oophorectomy Lupron discontinued 07/05/[address] Mathur in [facility]: Continue tamoxifen, PET/CT 08/04/2016 and follow-up, mammogram yearly, echocardiogram every 3 months, continue Herceptin and Perjeta. 08/01/2016: PET/CT shows decreasing blastic bone disease previously seen. Mild glucose activity in the right breast slightly increased and a new focus of warm activity in the superior right breast. Warm activity in the subcentimeter right inguinal lymph node slightly increased. 7--17 left ventricular ejection fraction reported at 61% just decreased from previous 71% otherwise study remained stable when compared to previous 11/18/2016: Patient reports PET/CT scan reviewed with Dr. Mathur was essentially unremarkable. MRI of the lumbar spine shows resolution or stable previously treated metastatic disease. MRI of the breast scheduled for today was not completed due to not being authorized by insurance. This will be rescheduled. Patient reports that she will follow with the surgeon to discuss possible breast surgery. 12/08/2016: Left ventricular ejection fraction on 2-D echocardiogram is stable at 60% 02/03/2017: PET/CT scan remarkable for 2 nodular densities in the right breast that it increased in size and hypermetabolic. There is a new hypermetabolic 0.8 cm right subpectoral node. Pre-existing sclerotic lesion in the posterior elements of T1 is now slightly hypermetabolic. Patient has consult did with surgery and is thinking about bilateral mastectomy with breast reconstruction in April. 2017: Vitamin D level noted to be at 27. Patient started on 50,000 units of vitamin D weekly and encouraged to take 2000 units daily. Patient is not compliant with the daily dose. left ventricular ejection fraction of 60% with normal diastolic function. 2. Normal chamber sizes with the right ventricle being the upper range of normal in size.3. A trileaflet aortic valve with no abnormalities.4. There is a trace amount of mitral insufficiency with no mitral stenosis.5. A trace amount of pulmonic insufficiency.6. A mild amount of tricuspid insufficiency with an estimated right ventricular systolic pressures of 41mm Hg which does include an estimated right atrial pressure of 3mm Hg.7. In comparison with the examination done on 12/08/2016 the only change is that the right ventricular pressures have slightly increased from 27 to 41mm Hg which is slightly elevated. Patient is referred to cardiology. Medical History Family History: FH: breast cancer MOTHER Psychosocial History Social History Patient is and has 2 daughters Occupational History She is a at home Alcohol History She denies use Smoking History: No Smoking Status: Never Smoker Medications and Allergies Active Scripts Cholecalciferol (Vitamin D3) (VITAMIN D3) 50,000 Unit Capsule, 47846 UNIT PO weekly, #14 CAPSULE Prov:GAGE PARKER [facility], ONC 02/10/17 Triamcinolone Acetonide 0.1% Cr 15 Gm Tube (TRIAMCINOLONE ACETONIDE 0.1% CREAM) 15 Gm Cream..g., 15 GM TP BID, #1 TUBE 1 Refill Prov:GAGE PARKER [facility], ONC 04/16/16 Tamoxifen Citrate (TAMOXIFEN CITRATE) 20 Mg Tablet, 20 MG PO DAILY, #90 TAB 3 Refills Prov:GAGE PARKER [facility]-, ONC 03/20/16 Allergies: Coded Allergies: povidone-iodine (Verified Allergy, Mild, UNKNOWN, 03/19/15) soap (Verified Allergy, Mild, UNKNOWN, 03/19/15) chlorhexidine (Verified Allergy, Unknown, RASH, 07/03/15) nystatin (Verified Allergy, Unknown, 03/19/15) Review of System/Physical Exam Review of Systems All Systems Reviewed/Normal: Yes, Except as Noted Constitutional: Positive for Fever/Chills/Sweating (reports a fever at home no fever today), Positive for Recent Infection HEENT: Sore Throat (reports very sore throat and a bump in the throat), Other ( headache and ear pain) Physical Exam Vital Signs Temperature: 96.7 Pulse: 104 BP Systolic: 118 BP Diastolic: 71 Respiratory Rate: 18 O2 SAT: 94 O2 Delivery: Room Air Height (inches) 62.00 Weight lb: 0 Weight oz: 3.0 Weight Kg (Dilip): 0.222679 Pain: 5 ECOG Score: 1 General: Stable, Well Developed, Well Nourished, Not In Acute Distress HEENT: No Trauma, No Conjunctivitis, No Icterus, No Mucositis, No Oral Thrush, Other (bright erythema in the posterior fair next bilateral ears are unremarkable, tympanic membrane is visible and pearly [place], no drainage noted, no earwax, and no tenderness with the exam) Neck: Supple, No Thyromegaly (patient notes tenderness over the neck with exam but no palpable lymph nodes appreciated) Lungs: Clear to Auscultation Heart: Regular Rate, Regular Rhythm, Other (pulse rate is slightly elevated at 104 today) Abdomen: Soft and Nontender, No Hepatosplenomegaly, No Masses Extremities: No Cyanosis, No Clubbing, No Edema Lymphadenopathy: No Cervical, No Subclavicular, No Axillary Psychiatric: Mood appears normal (patient does appear to be tired and fatigued) , Affect appears normal Skin: No Skin Rashes, No Bruising, No Purpura Diagnostic Studies Diagnostic Studies Laboratory Laboratory Tests 03/23/17 08:45 Laboratory Tests 02/10/17 10:07: Vitamin D 25-Hydroxy 27 03/23/17 08:45: White Blood Count 6.6, Red Blood Count 4.28, Hemoglobin 12.1, Hematocrit 35.0, Mean Corpuscular Volume 81.9, Mean Corpuscular Hemoglobin 28.4, Mean Corpuscular Hemoglobin Concent 34.7, Red Cell Distribution Width 12.5, Platelet Count 256, Mean Platelet Volume 8.9, Neutrophils (%) (Auto) 72.7, Lymphocytes (% ) (Auto) 16.6, Monocytes (%) (Auto) 8.9, Eosinophils (%) (Auto) 0.7, Basophils ( %) (Auto) 1.1, Nucleated RBC Relative Count (auto) 0.0, Neutrophils # (Auto) 4.8 , Lymphocytes # (Auto) 1.1, Monocytes # (Auto) 0.6, Eosinophils # (Auto) 0.0, Basophils # (Auto) 0.1, Nucleated RBC Absolute Count (auto) 0.00, Sodium Level 141, Potassium Level 3.9, Chloride Level 104, Carbon Dioxide Level 26, Blood Urea Nitrogen 15, Creatinine 0.60, Glomerular Filtration Rate Calc > 60.0, Random Glucose 93, Calcium Level 9.3, Total Bilirubin 0.7, Aspartate Amino Transf (AST/SGOT) 49, Alanine Aminotransferase (ALT/SGPT) 131, Alkaline Phosphatase 100, Total Protein 7.6, Albumin 3.5 Assessment and Plan Assessment & Plan 1. Metastatic breast cancer. Patient is a 36 year old female who initially presented with painful palpable lump in her right breast in early March,. Mammogram showed moderately dense fibroglandular tissue and a spiculated nodule measuring 1.7 cm in the upper outer breast. Right upper outer breast cancer - primary. She was also found to have metastatic disease in her bone- L spine, making her stage 4. PET scan completed on 03/21/2016 showed increased hypermetabolic activity in the spine without other areas of disease process with activity. She started on Lupron 3.75 mg injection given monthly on 03/28/2016 to complete 2-3 months followed with hysterectomy in June which was completed. . Patient reports completing radiation therapy to 5 doses to the L-spine status post biopsy identifying metastatic disease consistent with primary breast cancer which was completed in [place]. Repeat MRI indicates stable disease which was completed November 2016. PET/CT scan was without evidence of new disease. Patient had a MRI of the breast and surgical consult to discuss treatment options for palpable mass in the left breast in December. She followed with the surgeon to discuss bilateral mastectomy with breast reconstruction possibly in April of this year. She will continue on Herceptin and Perjeta every 21 days and follow with myself in the [facility]. Patient will continue on tamoxifen 20 mg daily. 2-D echocardiogram for evaluation of left ventricular ejection fraction was reported at 60% on 12/08/2016 and again it 60% on 2017. In comparison with the examination done on 12/08/2016 the only change is that the right ventricular pressures have slightly increased from 27 to 41mm Hg which is slightly elevated. Patient is referred to cardiology for evaluation. Tumor markers reviewed today and they remain relatively stable CEA is 1.3, CA- 27-29 is 30.4. They do not reflect the increasing disease noted on PET CT scan completed on 02/03/2017. Patient is scheduled to follow with Dr. Mathur in March. 2. The patient previously has had a slight elevation in ALT. patient has been taking Tylenol. I will continue to monitor labs prior to each Herceptin/Perjeta , labs had previously normalized. 3. Vitamin D deficiency: On 03/05/2016 patient's vitamin D level was 15. Patient was encouraged to increase vitamin D oral intake. However reports that she did not start any medication. Repeat vitamin D level on 03/26/2016 was at 16. Patient was started on 50,000 units of vitamin D weekly 7 weeks with a recommendation of 2000 units daily. Last vitamin D level was reported at 25 on 10/28/2016. She started 50,000 units weekly in February 2017. Vitamin D level on 02-26 was increased to 27. 4. Bone metastases identified on PET/CT scan on 02/03/2017: Continue to monitor thoracic area with hypermetabolic disease at T1. 5. Patient is scheduled to follow with Dr. Mathur in March. 6. Reports fever, headache and sore throat on exam today. Rapid strep test was negative. Patient will treat symptoms with ibuprofen and increase fluids. Exam was unremarkable other than previously listed. His symptoms continue patient is to call the clinic. I personally spent a total of 20 minutes. Of that 15 minutes was counseling/ coordination of patient's care. See my note above for details. 7. Copies to: CINDY MATHUR MD, NANCY J LIQUOR BLENDER-BC, ONC Mar 23, 2017 10:59
[2017-03-23 12:04] VITALS: BP 118/76
[2017-03-23] MEDS: HEPARIN FLSH (PORT) 500 UN/5ML IVP PRN (12:05)
--- NOTE | 2017-03-24 10:25 | Oncology Note ---
Patient was called and a message was left to assess how she is feeling today. Patient was not feeling well yesterday with the sore throat. She had no fever on her vital signs. Strep throat culture was negative. Patient is encouraged to call me back. GAGE PARKER TELEPHONE INTERVIEWER-BC, ONC Mar 24, 2017 10:25
[~2017-04-14] VITALS: Ht 157.5 cm; Wt 69.7 kg
[~2017-04-14 08:55] MED LIST changes: +ALTEPLASE RECOMB 2 MG VIAL IVP PRN; +DEXTROSE 5%(*) 100 ML BAG 100 ML IVPB PRN; +LIDOCAINE/SOD BICARB 8.4% SYR ID PRN; +NS 0.9% IVPB ONE; +NS(*) 0.9% 100 ML BAG 100 ML IVPB PRN; +PERTUZUMAB IVPB ONE; +TRASTUZUMAB IVPB ONE; +WATER STERILE 10 ML VIAL IVP PRN
[2017-04-14 09:56] VITALS: BP 140/84
[2017-04-14] MEDS: ACETAMINOPHEN 325 MG TAB PO PRN (10:10)
[2017-04-14] MEDS: diphenhydrAMINE 25 MG CAP PO PRN (10:11)
[2017-04-14] MEDS ORDERED: NS 0.9% IVPB ONE ×2 (11:00→12:00)
[2017-04-14] MEDS ORDERED: PERTUZUMAB IVPB ONE (11:00)
[2017-04-14] MEDS ORDERED: TRASTUZUMAB IVPB ONE (12:00)
[2017-04-14] MEDS: NS(*) 0.9% 500 ML BAG 500 ML IV PRN (12:02)
[2017-04-14] MEDS: HEPARIN FLSH (PORT) 500 UN/5ML IVP PRN (12:02)
== END 2017-04-16 ==
LOC: ONC 08:55
PROVIDERS: ATTEND Internal Medicine Medical Oncology
DX: Z51.11 Encounter for antineoplastic chemotherapy (principal); C50.411 Malignant neoplasm of upper-outer quadrant of right female breast; C79.51 Secondary malignant neoplasm of bone; E55.9 Vitamin D deficiency, unspecified; M54.6 Pain in thoracic spine; R53.83 Other fatigue; M89.8X9 Other specified disorders of bone, unspecified site; Z79.899 Other long term (current) drug therapy; Z17.0 Estrogen receptor positive status [ER+]; Z92.3 Personal history of irradiation
CPT/HCPCS: 82306; 82378; 82670; 83001; 85025; 85027; 86300; 87081; 87880; 96413; 96417; J1642; J7040; J7050; J9306; J9355; Q0163; 82040; 82247; 82310; 82374; 82435; 82565; 82947; 84075; 84132; 84155; 84295; 84450; 84460; 84520

== ENCOUNTER → 2017-04-28 | Outpatient (CLI) | payer OTHER ==
[~2017-04-28] MED LIST changes: -ALTEPLASE RECOMB 2 MG VIAL IVP PRN; -DEXTROSE 5%(*) 100 ML BAG 100 ML IVPB PRN; +FLUT16SP19 NS; -LIDOCAINE/SOD BICARB 8.4% SYR ID PRN; -NS 0.9% IVPB ONE; -NS(*) 0.9% 100 ML BAG 100 ML IVPB PRN; -PERTUZUMAB IVPB ONE; +SULF-198 PO; -TRASTUZUMAB IVPB ONE; -WATER STERILE 10 ML VIAL IVP PRN
== END ==
LOC: LAB 09:42
PROVIDERS: ATTEND Nurse Practitioner Primary Care
DX: R30.0 Dysuria (principal); N39.0 Urinary tract infection, site not specified; B96.20 Unspecified Escherichia coli [E. coli] as the cause of diseases classified elsewhere
CPT/HCPCS: 81001; 87077; 87088; 87186

== ENCOUNTER → 2017-05-05 | Outpatient (CLI) | payer OTHER | LOC: SPU 08:57 | PROVIDERS: ATTEND Nurse Practitioner Primary Care | DX: N39.0 Urinary tract infection, site not specified (principal) | CPT/HCPCS: 81001 ==

== ENCOUNTER → 2017-05-06 | Outpatient (CLI) | payer OTHER | LOC: RESP 07:19 | PROVIDERS: ATTEND Internal Medicine Cardiovascular Disease | DX: R07.89 Other chest pain (principal) | CPT/HCPCS: 93017 ==

== ENCOUNTER → 2017-05-29 | Outpatient (CLI) | payer OTHER ==
[~2017-05-29] MED LIST changes: +DABI110C; +TRAS150V; +VALA100059 PO
== END ==
LOC: LAB 09:42
PROVIDERS: ATTEND Nurse Practitioner Primary Care
DX: S60.429A Blister (nonthermal) of unspecified finger, initial encounter (principal)
CPT/HCPCS: 87252

== ENCOUNTER → 2017-06-11 | Outpatient (CLI) | payer OTHER ==
--- NOTE | 2017-06-13 06:36 | RADIOLOGY IMAGING REPORT ---
FACILITY: [facility] PATIENT NAME: PEGGY BYRD : [id number] MR: [id number] V: [id number] EXAM DATE: ORDERING PHYSICIAN: CINDY MATHUR TECHNOLOGIST: Desean Thacker EXAMINATION:TWO-DIMENSIONAL ECHOCARDIOGRAPH REASON: Check left ventricular function cancer patient. 2D Measurements (normal values in centimeters) LV endLV endRV endVent.LV PostAorticLeftPercent DiastolicSystolicDiastolicSeptumWallRootAtriumShortening (3.5-5.7)(0.9-2.6)(0.6-1.1)(0.6-1.1)(2.0-3.7)(1.9-4.0)(25-35%) [id number]% STROKE VOLUME: 47mils ESTIMATED EJECTION FRACTION: 63% PARASTERNAL LONG AXIS: Overall left ventricular systolic functions appears to be normal, chamber size also appear to be normal. Color examination reveals trace of mitral insufficiency and a trace of tricuspid insufficiency in this view. No wall motion abnormalities are noted. PARASTERNAL SHORT AXIS: Overall left ventricular function again appears to be normal no wall motion abnormalities are noted. Aortic valve was sclerotic with minimal aortic sclerosis but no stenosis, trace of pulmonic insufficiency is noted. Mild amount of tricuspid insufficiency is noted. Color examination of the aortic valve was unremarkable. APICAL FOUR AND TWO CHAMBER: Normal left ventricular ejection fraction, normal chamber sizes. Aortic valve area and mitral valve area both measure within normal range at 2.6cm and 2.8cm squared respectfully. The tricuspid regurgitation VMAX measured 2.31m/s. Left atrial and right atrial volumes measure within normal range at 21 and 18 mils/m squared. Right ventricular function measurement is measured within normal range at 2.35. SUBCOSTAL VIEW: No pericardial effusion was noted, no atrial septal or ventricular septal defects were appreciated. STRAIN measurements are within normal ranges. The Doppler examination of the mitral valve in diastole does reveal a normal pattern. The medial and lateral __e prime velocity are measured within normal ranges. OVERALL IMPRESSION: 1. Normal ventricular ejection fraction of 63% with normal diastolic function. 2. There are normal chamber sizes. 3. A trace of mitral and pulmonic insufficiency and a mild amount of tricuspid insufficiency with an estimated right ventricular systolic pressure within normal ranges at 24 mm/Hg. 4. STRAIN measurements are all measured within normal ranges. Dictated by: Diana Browning M.D. on 06/12/2017 at 14:38 Transcribed by: SUN on 06/12/2017 at 18:15 Approved by: Diana Browning M.D. on 06/13/2017 at 6:35 [facility]
== END ==
LOC: RAD 07:56
PROVIDERS: ATTEND Internal Medicine Medical Oncology
DX: I34.0 Nonrheumatic mitral (valve) insufficiency (principal); I37.1 Nonrheumatic pulmonary valve insufficiency; I07.1 Rheumatic tricuspid insufficiency
CPT/HCPCS: 93306

== ENCOUNTER 2017-07-29 13:00 | Outpatient (RCR) | payer OTHER ==
[2017-05-05 08:25] VITALS: BP 115/84
[2017-05-05] MEDS: NS(*) 0.9% 500 ML BAG 500 ML IV PRN (08:38)
[2017-05-07] MEDS: ACETAMINOPHEN 325 MG TAB PO PRN (08:21)
[2017-05-07] MEDS: diphenhydrAMINE 25 MG CAP PO PRN (08:21)
[2017-05-07 08:22] VITALS: BP 123/77
[2017-05-07 10:47] VITALS: BP 115/56
[2017-05-07] MEDS: HEPARIN FLSH (PORT) 500 UN/5ML IVP PRN (10:47)
[2017-05-28 09:01] VITALS: BP 114/81
[2017-05-28] MEDS: NS(*) 0.9% 500 ML BAG 500 ML IV PRN (09:06)
[2017-05-28] MEDS: diphenhydrAMINE 25 MG CAP PO PRN (09:51)
[2017-05-28] MEDS: ACETAMINOPHEN 325 MG TAB PO PRN (09:51)
[2017-05-28 11:45] VITALS: BP 115/82
[2017-05-28] MEDS: HEPARIN FLSH (PORT) 500 UN/5ML IVP PRN (11:48)
[2017-06-18 08:16] VITALS: BP 121/82
[2017-06-18] MEDS: diphenhydrAMINE 25 MG CAP PO PRN (09:03)
[2017-06-18] MEDS: ACETAMINOPHEN 325 MG TAB PO PRN (09:03)
[2017-06-18] MEDS: NS(*) 0.9% 500 ML BAG 500 ML IV PRN (09:04)
[2017-06-18] MEDS: HEPARIN FLSH (PORT) 500 UN/5ML IVP PRN (09:05)
[2017-06-18 11:02] VITALS: BP 128/79
[2017-07-13 11:36] VITALS: BP 114/79
[2017-07-13] MEDS: diphenhydrAMINE 25 MG CAP PO PRN (12:16)
[2017-07-13] MEDS: ACETAMINOPHEN 325 MG TAB PO PRN (12:16)
[2017-07-13] MEDS: NS(*) 0.9% 500 ML BAG 500 ML IV PRN (14:21)
[2017-07-13] MEDS: HEPARIN FLSH (PORT) 500 UN/5ML IVP PRN (14:21)
[~2017-07-29] VITALS: Ht 157.5 cm; Wt 74.0 kg
[~2017-07-29 13:00] MED LIST changes: +ALTEPLASE RECOMB 2 MG VIAL IVP PRN; +DEXTROSE 5%(*) 100 ML BAG 100 ML IVPB PRN; +LIDOCAINE/SOD BICARB 8.4% SYR ID PRN; +NS 0.9% IVPB ONE; +NS(*) 0.9% 100 ML BAG 100 ML IVPB PRN; +PERTUZUMAB IVPB ONE; +TRASTUZUMAB IVPB ONE; +WATER FOR INJ,STERILE 20 ML IVP PRN
[2017-07-29 13:25] VITALS: BP 109/76
--- NOTE | 2017-07-30 19:03 | ONCOLOGY FOLLOW UP NOTE ---
EVENT DATE: July 29, 2017 CHIEF COMPLAINT/REASON FOR VISIT Mrs. 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 HISTORY OF PRESENT ILLNESS Ani returns. She continues her Herceptin and PERJETA and has received over 45 doses thus far. We are pleased with the control of her disease with this regimen, however, she does have active disease with at least three areas in the spine as well as disease that was seen in the breast. Given the prolonged overall control, she pursued bilateral mastectomy earlier this month in July of 2017. She is recovering quite well from that. Dr. Gastelum, her primary medical oncologist, is unfortunately out of the country on a family leave, and I am going to be seeing her in her absence temporarily while she is unavailable. I would like to restart the Herceptin and PERJETA as soon as possible, but would like to communicate with the surgical team in [place] to determine the optimal time. She continues to have two drains from the bilateral mastectomy. Both of these are draining normal serosanguineous fluid which is expected at this time. She did have an allergic reaction likely to the topical chlorhexidine used in surgery, and continues to have some faint erythema and maculopapular rash consistent with an allergic rhinitis. It is present on both breasts as well as on the trunk and arms. It is mild and is currently being controlled with steroids and Benadryl. She states that it is much improved compared to what it was a few days ago when she was in the hospital. She was discharged from the hospital yesterday. Please see the oncology notes from the [facility] system for details about her extensive history of ER positive HER2/ben overexpressed breast cancer. SOCIAL HISTORY The patient is and has presented with her . She has two daughters. REVIEW OF SYSTEMS CONSTITUTIONAL: No fevers, chills, significant weight change. HEENT: No headache or vision changes. CARDIOVASCULAR: No chest pain, dyspnea on exertion or edema. RESPIRATORY: No shortness of breath, wheeze, cough. BREASTS: She is recovering well from her bilateral mastectomy. SKIN: The patient has an allergic reaction rash likely to the chloro prep or other topical treatment done during surgery. It is improving. No signs of infection in my opinion and no change to suggest infection. PSYCHIATRIC: Normal mood and affect. GASTROINTESTINAL: No nausea, vomiting. GENITOURINARY: No dysuria or hematuria. MUSCULOSKELETAL: No significant joint pain, muscle pain, bone pain thankfully. NEUROLOGIC: No numbness or deficits of concern. HEMATOLOGIC: No bruising or bleeding concern currently. The remainder of the 14-point review of systems is otherwise negative. PHYSICAL EXAMINATION VITAL SIGNS: Blood pressure 109/76 and stable, pulse 93, respiratory rate 16, temperature 97.7 Fahrenheit, oxygen saturation 97% on room air. Weight 74 kg. GENERAL: In stable condition, resting comfortably in the chair. HEENT: Normocephalic, atraumatic. BREASTS: She has bilateral mastectomy scars with expanders. Overlying the skin there is faint erythema without warmth or appearance concerning for infection. I believe this is consistent with her allergic reaction rash to likely the chlor prep used during surgery. She also has a surrounding maculopapular rash consistent with a drug rash as well. Two drains with normal serosanguineous fluid. CARDIOVASCULAR: Regular rate and rhythm. LUNGS: Clear. ABDOMEN: Soft. Remainder of physical exam otherwise unremarkable. IMPRESSION AND PLAN is a very pleasant 37-year-old female with the following: ER positive HER2/ben overexpressed breast cancer metastatic. I would like her to resumed Herceptin and PERJETA as soon as possible. I do not see any evidence that she was discussed at the Breast Cancer Tumor Board to indicate consideration of a different therapy. She did have breast cancer and a mastectomy specimen that was HER2/ben overexpressed. We know that she also has bone lesions that are active as well. She is due for therapy on August 04, and I would like to continue at that time unless our surgical colleagues in [place] would like to delay. I would like to minimize that delay as much as possible. I answered all of their many questions today. Note was sent through the [facility] system to her surgeon to discuss this. She has followup with then on August 03, and I have encouraged her to talk with them about timing and resuming as well. We will tentatively plan to resume on August 04. We will see her with each cycle during therapy, and then return her care to Dr. Gastelum when she returns hopefully later this summer. Billing: Return visit level 5. Total time 45 minutes, counseling time 30. MTDD
== END 2017-08-02 ==
LOC: ONC 13:00
PROVIDERS: ATTEND Internal Medicine Medical Oncology
DX: Z51.11 Encounter for antineoplastic chemotherapy (principal); C79.51 Secondary malignant neoplasm of bone
CPT/HCPCS: 82378; 82652; 82670; 83001; 85027; 86300; 96413; 96417; 99202; J1642; J7040; J7050; J9306; J9355; Q0163; 82040; 82247; 82310; 82374; 82435; 82565; 82947; 84075; 84132; 84155; 84295; 84450; 84460; 84520

== ENCOUNTER → 2017-08-10 | Outpatient (CLI) | payer OTHER ==
[~2017-08-10] MED LIST changes: -ALTEPLASE RECOMB 2 MG VIAL IVP PRN; -DEXTROSE 5%(*) 100 ML BAG 100 ML IVPB PRN; -LIDOCAINE/SOD BICARB 8.4% SYR ID PRN; -NS 0.9% IVPB ONE; -NS(*) 0.9% 100 ML BAG 100 ML IVPB PRN; -PERTUZUMAB IVPB ONE; -TRASTUZUMAB IVPB ONE; -WATER FOR INJ,STERILE 20 ML IVP PRN
== END ==
LOC: CT 07-20 00:41
PROVIDERS: ATTEND Plastic Surgery
DX: C50.411 Malignant neoplasm of upper-outer quadrant of right female breast (principal); Z17.0 Estrogen receptor positive status [ER+]

== ENCOUNTER 2017-10-27 08:19 | Outpatient (RCR) | payer OTHER ==
[2017-08-04] MEDS: NS(*) 0.9% 500 ML BAG 500 ML IV PRN (09:34)
[2017-08-04 09:35] VITALS: BP 111/77
[2017-08-04 09:48] LABS: PLATELET COUNT, AUTOMATED 295 K/uL (150-450)
[2017-08-04] MEDS: diphenhydrAMINE 25 MG CAP PO PRN (10:13)
[2017-08-04] MEDS: ACETAMINOPHEN 325 MG TAB PO PRN (10:14)
[2017-08-04] MEDS: HEPARIN FLSH (PORT) 500 UN/5ML IVP PRN (12:16)
[2017-08-04 12:17] VITALS: BP 116/80
--- NOTE | 2017-08-05 11:37 | Oncology Note ---
EVALUATION~DATE~& TIME: 08/04/17 0945am PRIMARY CARE PHYSICIAN: CINDY GASTELUM MD LAST SEEN BY DR. Perez 07/29/2017 ACCOMPANIED BY: Self Chief complaint: treatment for Herceptin and PERJETA, s/p double mastectomy DIAGNOSIS: Aggressive HER2/ben overexpressed metastatic right breast cancer, s/ p double mastectomy Oncology History 04-06-15 US pelvis- remarkable for a 2.6 left ovarian cyst and 1.3 cm right ovarian cyst. 04-06-15 Echocardiogram with an LVEF -of 63%- remains stable 04-06-15 Bilateral mammogram- further view recommended. Consider MRI breast if needed 05-04-15 Right mammogram with benign finding- repeat in 3-6 months: loosely grouped calcifications in the upper outer quadrant of the right breast with no pleomorphism unless the clinical findings warrant more immediate attention. 06-28-15: PET/CT showed uptake in endometrial cavity and a lesion on labia. Transvaginal US scheduled. 10-05-15 Echocardiogram EF was 67% Bilateral MRI of the breast completed on 11-12-15 BI-RADS 6: Multiple areas of clumped, non-mass like enhancement seen in the upper lateral and inferior lateral portion of the right breast similar in appearance to the prior outside MR dated 06/19/14 consistent with the history of known metastatic right breast cancer. Correlation with followup right mammogram is recommended given the previous findings of slightly increasing calcifications upper outer quadrant of the right breast as seen on the mammogram from 05/04/15. - recommendation was from mammogram on 05-04-15 Perjeta and Herceptin and Tamoxifen ongoing. Tumor markers remain stable in the 20 range- slightly increased to 25 on 05-22-15 and then back down to 23.6 on 06-29-15 and 23.0 on 07-20-1509/2615: CEA was 1.5 and CA 27.29 2 was 26. 10/29/15: CEA was 1.4, CA 27.29 was 26.8 01-23-16 CEA was 1.3 and CA 27.29 was 28.7 02/13/2016 CEA was 1.3 and CA 27.29 is 25.7 01/18/16: PET scan has SUV elevation from previous study in the thoracic and lumbar spine. MRI of Lumbar spine and thoracic spine completed on and remains relatively stable from previous. It is noted that patient has osseous metastases at T1 and T9 consistent with treated metastatic foci, and L4 treated pedicle and articular mass. Patient has not received any radiation therapy to the area. 02/11/15: MRI L/T spine: T1 and T9 osseous metastases as detailed above with imaging features consistent with treated metastatic foci. L4 left pedicle and articular mass metastasis as detailed above. The differential diagnosis would include a treated metastatic focus versus localized stress reaction without complete spondylolysis. L2-3 focal central disc protrusion (5 mm) resulting in localized secondary central canal stenosis due to thecal sac effacement from focal disc pathology. 03-05-16 breast disease discussed at tumor Board in [place]. Biopsy of T- spine lesion is recommended. No local breast surgery recommended. 03/21/16: PET/CT scan identified pre-existing osseous lesions that are slightly more metabolically active and on previous examination. Nodular densities in the lateral aspect of the right breast remains stable and have low level metabolic activity. There is no evidence of abnormal hyper metabolism elsewhere. Right upper lobe subpleural micronodules are stable and continued to be non- hypermetabolic. 03/26/2016: Patient will start Lupron 3.75 mg injections given monthly 2-3 months. She plans on having a complete hysterectomy in June when her sister can come to the [place] and help take care of her kids. Patient would like the 2nd dose to go through mail-order delivery due April 25. She was scheduled for 2-3 injections and will continue on oral tamoxifen daily. 05/13/2016 MRI T-spine: Bone metastasis and spinous process and bilateral lamina at T1 slightly increased enhancement, T9 unchanged 05/16/2016: Biopsy of T1: Positive for breast cancer primary, development of lower back pain 05/28/16 Mammogram identified a new calcification of the right upper breast. 06/04/2016 MRI L-spine, patient reports improving pain. Patient reports that she received 5 doses of radiation therapy to the L-spine in the [place] clinic. Patient also shares that she had her ovaries removed in [place]. Specific date is unknown. 06/16/2016: Salpingo-oophorectomy Lupron discontinued 07/05/[address] Gastelum in [place] clinic: Continue tamoxifen, PET/CT 08/04/2016 and follow-up, mammogram yearly, echocardiogram every 3 months, continue Herceptin and Perjeta. 08/01/2016: PET/CT shows decreasing blastic bone disease previously seen. Mild glucose activity in the right breast slightly increased and a new focus of warm activity in the superior right breast. Warm activity in the subcentimeter right inguinal lymph node slightly increased. 08-22-16 left ventricular ejection fraction reported at 61% just decreased from previous 71% otherwise study remained stable when compared to previous 11/18/2016: Patient reports PET/CT scan reviewed with Dr. Gastelum was essentially unremarkable. MRI of the lumbar spine shows resolution or stable previously treated metastatic disease. MRI of the breast scheduled for today was not completed due to not being authorized by insurance. This will be rescheduled. Patient reports that she will follow with the surgeon to discuss possible breast surgery. 12/08/2016: Left ventricular ejection fraction on 2-D echocardiogram is stable at 60% 02/03/2017: PET/CT scan remarkable for 2 nodular densities in the right breast that it increased in size and hypermetabolic. There is a new hypermetabolic 0.8 cm right subpectoral node. Pre-existing sclerotic lesion in the posterior elements of T1 is now slightly hypermetabolic. Patient has consult did with surgery and is thinking about bilateral mastectomy with breast reconstruction in April. 2017: Vitamin D level noted to be at 27. Patient started on 50,000 units of vitamin D weekly and encouraged to take 2000 units daily. Patient is not compliant with the daily dose. left ventricular ejection fraction of 60% with normal diastolic function. 2. Normal chamber sizes with the right ventricle being the upper range of normal in size.3. A trileaflet aortic valve with no abnormalities.4. There is a trace amount of mitral insufficiency with no mitral stenosis.5. A trace amount of pulmonic insufficiency.6. A mild amount of tricuspid insufficiency with an estimated right ventricular systolic pressures of 41mm Hg which does include an estimated right atrial pressure of 3mm Hg.7. In comparison with the examination done on 12/08/2016 the only change is that the right ventricular pressures have slightly increased from 27 to 41mm Hg which is slightly elevated. Patient is referred to cardiology. Treatment She continues her Herceptin and PERJETA and has received over 45 doses thus far. today's dose is#46 HPI Mrs. Dylan Rae, is a 37 year old female who has Aggressive HER2/ben overexpressed metastatic right breast cancer, s/p double mastectomy Initially presented with painful palpable lump in her right breast in early March,. Mammogram showed moderately dense fibroglandular tissue and a spiculated nodule measuring 1.7 cm in the upper outer breast. Right upper outer breast cancer - primary. She was also found to have metastatic disease in her bone- L spine, making her stage 4. PET scan completed on 03/21/2016 showed increased hypermetabolic activity in the spine without other areas of disease process with activity. She started on Lupron 3.75 mg injection given monthly on 03/28/2016 to complete 2-3 months followed with hysterectomy in June which was completed. . Patient reports completing radiation therapy to 5 doses to the L-spine status post biopsy identifying metastatic disease consistent with primary breast cancer which was completed in [place]. Repeat MRI indicates stable disease which was completed November 2016. PET/CT scan was without evidence of new disease. Patient had a MRI of the breast and surgical consult to discuss treatment options for palpable mass in the left breast in December. She recently had a bilateral mastectomy performed by Dr. Gastelum early July 2017. Here to day to continue with her Herceptin and PERJETA treatment. Living conditions: Lives with spouse and two young children Diagnostic tests & Reports Reviewed on [employer] PAST MEDICAL/SURGICAL HISTORY FAMILY~HISTORY: Family History: FH: breast cancer MOTHER Psychosocial History Social History Patient is and has 2 daughters Occupational History She is a at home Alcohol History She denies use Smoking History: No Smoking Status: Never Smoker Medications Medications Last Reconciled on 05/25/17 09:14 by LESLEY GUSMAN RN Dabigatran Etexilate Mesylate (Pradaxa) Unknown Strength Capsule Reported 05/25/17 Trastuzumab (Herceptin) Unknown Strength Vial Reported 05/25/17 Fluticasone Prop 50 Mcg Ns (FLONASE 50 MCG NS) 16 Gm Hurst.susp 2 SPRAYS NS QDAY, #1 BOT 1 Refill Prov: KEVEN TUTTLE DNP, [employer]LEY WORKER-BC 05/01/17 Cholecalciferol (Vitamin D3) (VITAMIN D3) 50,000 Unit Capsule 96754 UNIT PO weekly, #14 CAPSULE Prov: GAGE PARKER GALLEY WORKER-BC, ONC 02/10/17 Tamoxifen Citrate (TAMOXIFEN CITRATE) 20 Mg Tablet 20 MG PO DAILY, #90 TAB 3 Refills Prov: GAGE PARKER GALLEY WORKER-BC, ONC 03/20/16 Allergies Allergies: Coded Allergies: povidone-iodine (Verified Allergy, Mild, UNKNOWN, 03/19/15) soap (Verified Allergy, Mild, UNKNOWN, 03/19/15) chlorhexidine (Verified Allergy, Unknown, RASH, 07/03/15) nystatin (Verified Allergy, Unknown, 03/19/15) 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 PREVENTIVE: REVIEW OF SYSTEMS CONSTITUTION: denies fevers, sweats, change in appetite, energy, or weight EYES: No blurred vision, no double vision ENT: no mouth soreness, trouble swallowing, neck masses RESPIRATORY: Denies pleuritic pain, dyspnea, wheezing, coughing CARDIOVASCULAR: Denies cardiac type chest pain, palpitations, leg edema GI: denies trouble swallowing, indigestion, abdominal pain, diarrhea, constipation, : No blood in the urine, no urinary urgency/frequency, no dysuria, MUSCULOSKELETAL: no joint pain, no muscle pain, +limited upper extremities ROM from surgery improving, no back pain NEURO: denies headaches, dizziness, neuropathy, focal weakness SKIN: denies bruising, rashes, changing or suspicious lesions, HEMATOLOGY: denies spontaneous bleeding, denies non-palpable nodes PSYCH: denies mood changes, depression, anxiety PHYSICAL EXAM Vital Signs Temperature: 97.1 Pulse: 76 BP Systolic: 116 BP Diastolic: 80 Respiratory Rate: 16 O2 SAT: 96 RA O2 Delivery: Height (inches) Weight lb: Weight oz: Weight Kg (Dilip): Pain: 2 PERFORMANCE STATUS: ECOG 1- Strenuous physical activity restricted; fully ambulatory and able to carry out light work. GENERAL: pleasant conversant, in no apparent distress BREAST: She has bilateral mastectomy surgical incision scars with expanders. Overlying the skin there is faint erythema without warmth, no drainage, no s/s of infection, site clean dry intact. ORAL: mucosa moist without lesions, pharynx not injected EYES: no icterus, no pale conjunctivae, EOMI, PERRLA NECK: supple, no masses, no palpable lymph nodes LUNGS: clear to auscultation bilaterally, breathing, non-labored CVS: regular rate, rhythm, nl s1, s2, no murmurs ABD: normal bowel sounds, soft non tender, non-distended, no hepatomegaly, no splenomegaly, no masses EXTREMITIES: no edema, no cyanosis MUSCULOSKELETAL: grossly normal gait, range of motion stable NEURO: alert, appropriate, motor grossly normal, sensory grossly non focal, and cranial nerves grossly intact NODES: no cervical, supraclavicular, axillary, inguinal adenopathy SKIN: no ecchymosis,no petechiae, +bilateral flank dressing from surgical pig tail drainage site, clean dry intact PSYCH: normal mood and affect, good judgment and insight. Assessment & Plan Mrs. Dylan Rae, is a 37 year old female who has Aggressive HER2/ben overexpressed metastatic right breast cancer, s/p double mastectomy 1. Metastatic breast cancer. s/p bilateral double mastectomy, 07/2017, and Herceptin and PERJETA DIAGNOSTIC DATA CBC showed a white count of, hemoglobin, hematocrit, platelets. Chem panel totally normal except potassium, creatinine, uric acid. IgG is, IgA, and IgM 5. Randall free light chain is 2.12, and the lambda free light chain is and free kappa to lambda ratio was which is down from PLAN 1.Continue Herceptin and PERJETA as scheduled 2.Quant Gold,RPR ( shiphyllis, gonorrhea per patient request for her immigration documentation work up requirement 3. Patient may not receive any type of vaccines during treatment, and at least six months after treatment and cleared by Oncology. Except the unattenuated Influenza vaccine for which she is currently uptodate. 4. A letter stating the vaccine contraindications given to patient today 5. RTC on September 04 2015 for f/u with either MD/MARLEN 6. F/u with Dr. Perez on September 2017 7. Patient to contact Cancer center with any concerns. TIME SPENT: 45 minutes > 40 minutes includes but not limited to discussion, counselling and co-ordination~ of care. Discussion with other health care providers, record review, review of lab work, diagnostic tests. Plan discussed extensively with patient. All the questions answered today. Thank you for the opportunity to be involved in the care of Kyra Gilmore. Billing Level: Return visit 5 VICTORINO EMMANUEL, ONC Aug 04, 2017 18:55
[2017-08-26] MEDS: ACETAMINOPHEN 325 MG TAB PO PRN (11:33)
[2017-08-26] MEDS: diphenhydrAMINE 25 MG CAP PO PRN (11:33)
[2017-08-26] MEDS: NS(*) 0.9% 500 ML BAG 500 ML IV PRN (11:34)
[2017-08-26 11:39] VITALS: BP 109/82
[2017-08-26 13:38] VITALS: BP 104/65
[2017-08-26] MEDS: HEPARIN FLSH (PORT) 500 UN/5ML IVP PRN (13:41)
--- NOTE | 2017-08-26 14:18 | Oncology Progress Note ---
History of Present Illness Evaluation Evaluation Date: Aug 26, 2017 Evaluation Time: 10:45 Accompanied by Accompanied by: 9 yr old daughter Last seen by : Chris 07/29/2017 Chief Complaint Chief Complaint Treatment management for Herceptin and PERJETA, s/p double mastectomy Oncology History Oncology History 04-06-15 US pelvis- remarkable for a 2.6 left ovarian cyst and 1.3 cm right ovarian cyst. 04-06-15 Echocardiogram with an LVEF -of 63%- remains stable 04-06-15 Bilateral mammogram- further view recommended. Consider MRI breast if needed 05-04-15 Right mammogram with benign finding- repeat in 3-6 months: loosely grouped calcifications in the upper outer quadrant of the right breast with no pleomorphism unless the clinical findings warrant more immediate attention. 06-28-15: PET/CT showed uptake in endometrial cavity and a lesion on labia. Transvaginal US scheduled. 10-05-15 Echocardiogram EF was 67% Bilateral MRI of the breast completed on 11-12-15 BI-RADS 6: Multiple areas of clumped, non-mass like enhancement seen in the upper lateral and inferior lateral portion of the right breast similar in appearance to the prior outside MR dated 06/19/14 consistent with the history of known metastatic right breast cancer. Correlation with followup right mammogram is recommended given the previous findings of slightly increasing calcifications upper outer quadrant of the right breast as seen on the mammogram from 05/04/15. - recommendation was from mammogram on 05-04-15 Perjeta and Herceptin and Tamoxifen ongoing. Tumor markers remain stable in the 20 range- slightly increased to 25 on 05-22-15 and then back down to 23.6 on 06-29-15 and 23.0 on 07-20-1509/2615: CEA was 1.5 and CA 27.29 2 was 26. 10/29/15: CEA was 1.4, CA 27.29 was 26.8 01-23-16 CEA was 1.3 and CA 27.29 was 28.7 02/13/2016 CEA was 1.3 and CA 27.29 is 25.7 01/18/16: PET scan has SUV elevation from previous study in the thoracic and lumbar spine. MRI of Lumbar spine and thoracic spine completed on and remains relatively stable from previous. It is noted that patient has osseous metastases at T1 and T9 consistent with treated metastatic foci, and L4 treated pedicle and articular mass. Patient has not received any radiation therapy to the area. 02/11/15: MRI L/T spine: T1 and T9 osseous metastases as detailed above with imaging features consistent with treated metastatic foci. L4 left pedicle and articular mass metastasis as detailed above. The differential diagnosis would include a treated metastatic focus versus localized stress reaction without complete spondylolysis. L2-3 focal central disc protrusion (5 mm) resulting in localized secondary central canal stenosis due to thecal sac effacement from focal disc pathology. 03-05-16 breast disease discussed at tumor Board in [place]. Biopsy of T- spine lesion is recommended. No local breast surgery recommended. 03/21/16: PET/CT scan identified pre-existing osseous lesions that are slightly more metabolically active and on previous examination. Nodular densities in the lateral aspect of the right breast remains stable and have low level metabolic activity. There is no evidence of abnormal hyper metabolism elsewhere. Right upper lobe subpleural micronodules are stable and continued to be non- hypermetabolic. 03/26/2016: Patient will start Lupron 3.75 mg injections given monthly 2-3 months. She plans on having a complete hysterectomy in June when her sister can come to the [facility] and help take care of her kids. Patient would like the 2nd dose to go through mail-order delivery due April 25. She was scheduled for 2-3 injections and will continue on oral tamoxifen daily. 05/13/2016 MRI T-spine: Bone metastasis and spinous process and bilateral lamina at T1 slightly increased enhancement, T9 unchanged 05/16/2016: Biopsy of T1: Positive for breast cancer primary, development of lower back pain 05/28/16 Mammogram identified a new calcification of the right upper breast. 06/04/2016 MRI L-spine, patient reports improving pain. Patient reports that she received 5 doses of radiation therapy to the L-spine in the [place] clinic. Patient also shares that she had her ovaries removed in [place]. Specific date is unknown. 06/16/2016: Salpingo-oophorectomy Lupron discontinued 07/05/[address] Gastelum in [place] clinic: Continue tamoxifen, PET/CT 08/04/2016 and follow-up, mammogram yearly, echocardiogram every 3 months, continue Herceptin and Perjeta. 08/01/2016: PET/CT shows decreasing blastic bone disease previously seen. Mild glucose activity in the right breast slightly increased and a new focus of warm activity in the superior right breast. Warm activity in the subcentimeter right inguinal lymph node slightly increased. 7-14-17 left ventricular ejection fraction reported at 61% just decreased from previous 71% otherwise study remained stable when compared to previous 11/18/2016: Patient reports PET/CT scan reviewed with Dr. Gastelum was essentially unremarkable. MRI of the lumbar spine shows resolution or stable previously treated metastatic disease. MRI of the breast scheduled for today was not completed due to not being authorized by insurance. This will be rescheduled. Patient reports that she will follow with the surgeon to discuss possible breast surgery. 12/08/2016: Left ventricular ejection fraction on 2-D echocardiogram is stable at 60% 02/03/2017: PET/CT scan remarkable for 2 nodular densities in the right breast that it increased in size and hypermetabolic. There is a new hypermetabolic 0.8 cm right subpectoral node. Pre-existing sclerotic lesion in the posterior elements of T1 is now slightly hypermetabolic. Patient has consult did with surgery and is thinking about bilateral mastectomy with breast reconstruction in April. 2017: Vitamin D level noted to be at 27. Patient started on 50,000 units of vitamin D weekly and encouraged to take 2000 units daily. Patient is not compliant with the daily dose. left ventricular ejection fraction of 60% with normal diastolic function. 2. Normal chamber sizes with the right ventricle being the upper range of normal in size.3. A trileaflet aortic valve with no abnormalities.4. There is a trace amount of mitral insufficiency with no mitral stenosis.5. A trace amount of pulmonic insufficiency.6. A mild amount of tricuspid insufficiency with an estimated right ventricular systolic pressures of 41mm Hg which does include an estimated right atrial pressure of 3mm Hg.7. In comparison with the examination done on 12/08/2016 the only change is that the right ventricular pressures have slightly increased from 27 to 41mm Hg which is slightly elevated. Patient is referred to cardiology. Treatment Treatment 08/04/2017 Herceptin and PERJETA #46 08/26/2017 Herceptin and PERJETA #47 HPI HPI Mrs. 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 Patient reports completing radiation therapy to 5 doses to the L-spine status post biopsy identifying metastatic disease consistent with primary breast cancer which was completed in [place] with Dr. Dumas. Patient reports being in her usual state of health, She denies headaches, dizziness, no fevers at home, no chills, no pain, no nausea vomiting diarrhea,no cardiac type chest pain, no abdominal pain, no bruising, or bleeding, no skin rashes,on physical exam bilateral surgical site of the breast incision clean dry and intact, tenderness mightily improving, no edema or no lumps, no hematoma, appetite and hydration intake okk, patient keeps active and walks frequently. Strong family history of maternal breast cancer. of note. Disease Initially presented with painful palpable lump in her right breast in early March,. Mammogram showed moderately dense fibroglandular tissue and a spiculated nodule measuring 1.7 cm in the upper outer breast. Right upper outer breast cancer - primary. She was also found to have metastatic disease in her bone- L spine, making her stage 4. PET scan completed on 03/21/2016 showed increased hypermetabolic activity in the spine without other areas of disease process with activity. She started on Lupron 3.75 mg injection given monthly on 03/28/2016 to complete 2-3 months followed with hysterectomy in June which was completed. Living Conditions with 2 yound children. Diagnostic Studies Result Diagram: 08/26/17 0955 08/26/17 0955 PMH Patient History: FH: breast cancer MOTHER Social/Occupational History Social History: Social History This is a 37 Yr old Unknown female, she is M and has [] Children Hx Smoking: No Smoking Status: Never Smoker Allergies & Medications Allergies: Coded Allergies: povidone-iodine (Verified Allergy, Mild, UNKNOWN, 03/19/15) soap (Verified Allergy, Mild, UNKNOWN, 03/19/15) chlorhexidine (Verified Allergy, Unknown, RASH, 07/03/15) nystatin (Verified Allergy, Unknown, 03/19/15) Home Meds Active Scripts Fluticasone Prop 50 Mcg Ns (FLONASE 50 MCG NS) 16 Gm [place].susp, 2 SPRAYS NS QDAY, #1 BOT 1 Refill Prov:KEVEN UTTTLE DNP, WILDLIFE REMOVAL SPECIALIST-BC 05/01/17 Tamoxifen Citrate (TAMOXIFEN CITRATE) 20 Mg Tablet, 20 MG PO DAILY, #90 TAB 3 Refills Prov:GAGE PARKER Neel WILDLIFE REMOVAL SPECIALIST-BC, ONC 03/20/16 Reported Medications Trastuzumab (Herceptin) Unknown Strength Vial 05/25/17 Review of Systems Constitution: Denies Appetite/Weight Change, Denies Fever/Chills/Sweating, Denies Recent Infection, Denies Other HEENT: No EARS: Tinnitus, No NOSE: Nasal Discharge, No THROAT: Sore Throat, No EYES: Dipolpia, No EARS: Hearing Problems, No NOSE: Epistaxis, No THROAT: Mouth Ulcers, No EYES: Vision Change, No OTHER Respiratory: No Cough, No Expectoration, No Hemoptysis, No Shortness of Breath , No OTHER Cardiovascular: No Chest Pain, No Orthopnea, No Edema, No Palpitations, No OTHER Gastrointestinal: No Nausea, No Vomitting, No Diarrehea, No Constipation, No Heart Burn, No Swallowing Difficulties, No Abdominal Pain, No Other Gentiourinary: Dysuria Musculoskeletal: Bone Pain Hematological: Fatigue Skin: No Skin Rash, No Lumps, No Erythema, No Dry Skin, No Moist Skin, No Other Psychiatric: No Anxiety, No Depression, No Other Vital Signs Vital Signs Temperature: 98.5 Pulse: 81 BP Systolic: 109 BP Diastolic: 65 Respiratory Rate: 16 O2 SAT: 97 O2 Delivery: Room Air Height (feet) 5 Height (inches) 62.00 Weight lb: 0 Weight oz: 3.0 Weight Kg (Dilip): [id number] Pain: 0 ECOG O- fully active, able to carry on all pre-disease performance w/o restriction Physical Exam General: Looks Stable, Well Developed, Well Nourished HEENT: HEAD:Atraumatic Neck: Supple Lungs: Clear to Auscultation Heart: Regular Rate and Rhythm Abdomen: Soft and Nontender Extremities: No Cyanosis, No Clubbing, No Edema, No Other Lymphatics: No Peripheral Lymphadenopathy, No Other Psychiatric: Mood appears normal, Affect appears normal Breast: No Nipple Discharge, Other (surgical incision on bilateral breast, clean dry intact) Assessment and Plan Assessment and Plan Mrs. 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 patient is here at cancer center today for her treatment, she reports being in her usual state of health with no issues. 1. Metastatic breast cancer. s/p bilateral double mastectomy, 07/2017, and Herceptin and PERJETA dose#46 today 08/26/17. 08/06/17 CEA is 1.6.; CA27-29 serial is 48 trending down. upcoming 2decho. patient hesitant of the pressure and pain that the procedure causes. We will reassess healing state of bilateral breast prior to 2Decho. of note, 2D echo have been within normal limits. 2- 2017 left ventricular ejection fraction of 60% with normal diastolic function. 08-22-16 left ventricular ejection fraction reported at 61% just decreased from previous 71% otherwise study remained stable when compared to previous DIAGNOSTIC DATA CBC showed a white count of, hemoglobin, hematocrit, platelets. Chem panel totally normal except potassium, creatinine, uric acid. IgG is, IgA, and IgM 5. [place] free light chain is 2.12, and the lambda free light chain is and free kappa to lambda ratio was which is down from 07/13/17 CEA is 2.6 CA27-29 serial is 58.6 08/06/17 CEA is 1.6.; CA27-29 serial is 48 08/26/17 markers drawn today pending . PLAN 1.Continue Herceptin and PERJETA as scheduled dose #46 today. 2.2d echo due on and around , we will assess bilateral breast surgical site for healing status 3. PET scheduled for 09/03/[address] Harvinder Barry 4. Will discuss with Dr. Perez in regards to future Rad ONC role if clinically indicated 5. RTC for f/u with either MD/MARLEN in three weeks 09/23/17 6. F/u with Dr. Perez on September 2017 7. Patient to contact Cancer center with any concerns. 8. Patient to continue to keep active, and walk at least 30-45 minutes per day. 9. Will await clearance and surgical team recommendations as to what type and when to incorporate Physical therapy. -Education, patient instructed to go to ER immediately and or call Clinic if any Shortness of Breath, Temp >/=100.4, fevers, chills, cardiac type chest pain , bleeding, excessive bruising, headaches, blurry vision, dizziness, abdominal pain, difficulty swallowing, and pain unrelieved by medication. TIME SPENT: 25 minutes > 20 minutes includes but not limited to discussion, counselling and co-ordination~ of care. Discussion with other health care providers, record review, review of lab work, diagnostic tests. Plan discussed extensively with patient. All the questions answered today. Thank you for the opportunity to be involved in the care of Kyra Gilmore. Billing Level: Return visit 5 VICTORINO EMMANUEL, ONC Aug 26, 2017 14:18
[2017-09-16] MEDS: NS(*) 0.9% 500 ML BAG 500 ML IV PRN (11:30)
[2017-09-16 11:33] VITALS: BP 114/72
[2017-09-16] MEDS: ACETAMINOPHEN 325 MG TAB PO PRN (12:24)
[2017-09-16] MEDS: diphenhydrAMINE 25 MG CAP PO PRN (12:24)
--- NOTE | 2017-09-16 14:18 | Oncology Progress Note ---
History of Present Illness Evaluation Evaluation Date: Sep 16, 2017 Evaluation Time: 11:00 Primary Care Provider Primary Care Provider: Dr. Bhatti Accompanied by Accompanied by: 9 yr old daughter Last seen by : Chris 07/29/2017 Chief Complaint Chief Complaint Treatment management for Herceptin and PERJETA cycle#48, s/p double mastectomy Oncology History Oncology History 04-06-15 US pelvis- remarkable for a 2.6 left ovarian cyst and 1.3 cm right ovarian cyst. 04-06-15 Echocardiogram with an LVEF -of 63%- remains stable 04-06-15 Bilateral mammogram- further view recommended. Consider MRI breast if needed 05-04-15 Right mammogram with benign finding- repeat in 3-6 months: loosely grouped calcifications in the upper outer quadrant of the right breast with no pleomorphism unless the clinical findings warrant more immediate attention. 06-28-15: PET/CT showed uptake in endometrial cavity and a lesion on labia. Transvaginal US scheduled. 10-05-15 Echocardiogram EF was 67% Bilateral MRI of the breast completed on 11-12-15 BI-RADS 6: Multiple areas of clumped, non-mass like enhancement seen in the upper lateral and inferior lateral portion of the right breast similar in appearance to the prior outside MR dated 06/19/14 consistent with the history of known metastatic right breast cancer. Correlation with followup right mammogram is recommended given the previous findings of slightly increasing calcifications upper outer quadrant of the right breast as seen on the mammogram from 05/04/15. - recommendation was from mammogram on 05-04-15 Perjeta and Herceptin and Tamoxifen ongoing. Tumor markers remain stable in the 20 range- slightly increased to 25 on 05-22-15 and then back down to 23.6 on 06-29-15 and 23.0 on 07-20-1509/2615: CEA was 1.5 and CA 27.29 2 was 26. 10/29/15: CEA was 1.4, CA 27.29 was 26.8 01-23-16 CEA was 1.3 and CA 27.29 was 28.7 02/13/2016 CEA was 1.3 and CA 27.29 is 25.7 01/18/16: PET scan has SUV elevation from previous study in the thoracic and lumbar spine. MRI of Lumbar spine and thoracic spine completed on and remains relatively stable from previous. It is noted that patient has osseous metastases at T1 and T9 consistent with treated metastatic foci, and L4 treated pedicle and articular mass. Patient has not received any radiation therapy to the area. 02/11/15: MRI L/T spine: T1 and T9 osseous metastases as detailed above with imaging features consistent with treated metastatic foci. L4 left pedicle and articular mass metastasis as detailed above. The differential diagnosis would include a treated metastatic focus versus localized stress reaction without complete spondylolysis. L2-3 focal central disc protrusion (5 mm) resulting in localized secondary central canal stenosis due to thecal sac effacement from focal disc pathology. 03-05-16 breast disease discussed at tumor Board in [place]. Biopsy of T- spine lesion is recommended. No local breast surgery recommended. 03/21/16: PET/CT scan identified pre-existing osseous lesions that are slightly more metabolically active and on previous examination. Nodular densities in the lateral aspect of the right breast remains stable and have low level metabolic activity. There is no evidence of abnormal hyper metabolism elsewhere. Right upper lobe subpleural micronodules are stable and continued to be non- hypermetabolic. 03/26/2016: Patient will start Lupron 3.75 mg injections given monthly 2-3 months. She plans on having a complete hysterectomy in June when her sister can come to the [place] and help take care of her kids. Patient would like the 2nd dose to go through mail-order delivery due April 25. She was scheduled for 2-3 injections and will continue on oral tamoxifen daily. 05/13/2016 MRI T-spine: Bone metastasis and spinous process and bilateral lamina at T1 slightly increased enhancement, T9 unchanged 05/16/2016: Biopsy of T1: Positive for breast cancer primary, development of lower back pain 05/28/16 Mammogram identified a new calcification of the right upper breast. 06/04/2016 MRI L-spine, patient reports improving pain. Patient reports that she received 5 doses of radiation therapy to the L-spine in the [facility] clinic. Patient also shares that she had her ovaries removed in [place]. Specific date is unknown. 06/16/2016: Salpingo-oophorectomy Lupron discontinued 07/05/[address] Gastelum in [place] clinic: Continue tamoxifen, PET/CT 08/04/2016 and follow-up, mammogram yearly, echocardiogram every 3 months, continue Herceptin and Perjeta. 08/01/2016: PET/CT shows decreasing blastic bone disease previously seen. Mild glucose activity in the right breast slightly increased and a new focus of warm activity in the superior right breast. Warm activity in the subcentimeter right inguinal lymph node slightly increased. 08-22-16 left ventricular ejection fraction reported at 61% just decreased from previous 71% otherwise study remained stable when compared to previous 11/18/2016: Patient reports PET/CT scan reviewed with Dr. Gastelum was essentially unremarkable. MRI of the lumbar spine shows resolution or stable previously treated metastatic disease. MRI of the breast scheduled for today was not completed due to not being authorized by insurance. This will be rescheduled. Patient reports that she will follow with the surgeon to discuss possible breast surgery. 12/08/2016: Left ventricular ejection fraction on 2-D echocardiogram is stable at 60% 02/03/2017: PET/CT scan remarkable for 2 nodular densities in the right breast that it increased in size and hypermetabolic. There is a new hypermetabolic 0.8 cm right subpectoral node. Pre-existing sclerotic lesion in the posterior elements of T1 is now slightly hypermetabolic. Patient has consult did with surgery and is thinking about bilateral mastectomy with breast reconstruction in April. 2017: Vitamin D level noted to be at 27. Patient started on 50,000 units of vitamin D weekly and encouraged to take 2000 units daily. Patient is not compliant with the daily dose. left ventricular ejection fraction of 60% with normal diastolic function. 2. Normal chamber sizes with the right ventricle being the upper range of normal in size.3. A trileaflet aortic valve with no abnormalities.4. There is a trace amount of mitral insufficiency with no mitral stenosis.5. A trace amount of pulmonic insufficiency.6. A mild amount of tricuspid insufficiency with an estimated right ventricular systolic pressures of 41mm Hg which does include an estimated right atrial pressure of 3mm Hg.7. In comparison with the examination done on 12/08/2016 the only change is that the right ventricular pressures have slightly increased from 27 to 41mm Hg which is slightly elevated. Patient is referred to cardiology. Treatment Treatment 08/04/2017 Herceptin and PERJETA #46 08/26/2017 Herceptin and PERJETA #47 09/16/2017 Herceptin and PERJETA #48 HPI HPI Mrs. Dylan Rea, is a very pleasant 37 year old female who has Aggressive HER2/ben overexpressed metastatic right breast cancer, s/p double mastectomy 2017. on treatment Herceptin and PERJETA #48. Patient reports completing radiation therapy 5 doses to the L-spine status post biopsy identifying metastatic disease consistent with primary breast cancer which was completed in [place] with Dr. Dumas. Patient reports being in her usual state of health, She denies headaches, dizziness, no fevers at home, no chills, no pain, no nausea vomiting diarrhea,no cardiac type chest pain, no abdominal pain, no bruising, or bleeding, no skin rashes,on physical exam bilateral surgical site of the breast incision clean dry and intact, tenderness significantly improving, no edema or no lumps, no hematoma, appetite and hydration intake okk , patient keeps active and walks frequently. Strong family history of maternal breast cancer. of note. Disease Initially presented with painful palpable lump in her right breast in early March,. Mammogram showed moderately dense fibroglandular tissue and a spiculated nodule measuring 1.7 cm in the upper outer breast. Right upper outer breast cancer - primary. She was also found to have metastatic disease in her bone- L spine, making her stage 4. PET scan completed on 03/21/2016 showed increased hypermetabolic activity in the spine without other areas of disease process with activity. She started on Lupron 3.75 mg injection given monthly on 03/28/2016 to complete 2-3 months followed with hysterectomy in June which was completed. Living Conditions with 2 young children. Diagnostic Studies Result Diagram: 09/16/17 1118 09/16/17 1118 PM Patient History: FH: breast cancer MOTHER Social/Occupational History Social History: Social History This is a 37 Yr old Unknown female, she is M and has [] Children Hx Smoking: No Smoking Status: Never Smoker Allergies & Medications Allergies: Coded Allergies: povidone-iodine (Verified Allergy, Mild, UNKNOWN, 03/19/15) soap (Verified Allergy, Mild, UNKNOWN, 03/19/15) chlorhexidine (Verified Allergy, Unknown, RASH, 07/03/15) nystatin (Verified Allergy, Unknown, 03/19/15) Home Meds Active Scripts Fluticasone Prop 50 Mcg Ns (FLONASE 50 MCG NS) 16 Gm Britton.susp, 2 SPRAYS NS QDAY, #1 BOT 1 Refill Prov:KEVEN TUTTLE DNP, ROPE LAYING MACHINE OPERATOR-BC 05/01/17 Tamoxifen Citrate (TAMOXIFEN CITRATE) 20 Mg Tablet, 20 MG PO DAILY, #90 TAB 3 Refills Prov:GAGE PARKER ROPE LAYING MACHINE OPERATOR-BC, ONC 03/20/16 Reported Medications Trastuzumab (Herceptin) Unknown Strength Vial 05/25/17 Review of Systems Constitution: Denies Appetite/Weight Change, Denies Fever/Chills/Sweating, Denies Recent Infection, Denies Other HEENT: No EARS: Tinnitus, No NOSE: Nasal Discharge, No THROAT: Sore Throat, No EYES: Dipolpia, No EARS: Hearing Problems, No NOSE: Epistaxis, No THROAT: Mouth Ulcers, No EYES: Vision Change, No OTHER Respiratory: No Cough, No Expectoration, No Hemoptysis, No Shortness of Breath , No OTHER Cardiovascular: No Chest Pain, No Orthopnea, No Edema, No Palpitations, No OTHER Gastrointestinal: No Nausea, No Vomitting, No Diarrehea, No Constipation, No Heart Burn, No Swallowing Difficulties, No Abdominal Pain, No Other Gentiourinary: Dysuria Musculoskeletal: Bone Pain Hematological: Fatigue Skin: No Skin Rash, No Lumps, No Erythema, No Dry Skin, No Moist Skin, No Other Psychiatric: No Anxiety, No Depression, No Other Vital Signs Vital Signs Temperature: 97.0 Pulse: 82 BP Systolic: 114 BP Diastolic: 72 Respiratory Rate: 16 O2 SAT: 97 O2 Delivery: Room Air Height (feet) 5 Height (inches) 62.00 Weight lb: 0 Weight oz: 3.0 Weight Kg (Dilip): 0.029061 Pain: 0 Physical Exam General: Looks Stable, Well Developed, Well Nourished HEENT: HEAD:Atraumatic Neck: Supple Lungs: Clear to Auscultation Heart: Regular Rate and Rhythm Abdomen: Soft and Nontender Extremities: No Cyanosis, No Clubbing, No Edema, No Other Lymphatics: No Peripheral Lymphadenopathy, No Other Psychiatric: Mood appears normal, Affect appears normal Breast: No Nipple Discharge, Other (surgical incision on bilateral breast, clean dry intact) Assessment and Plan Assessment and Plan Mrs. 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 On treatment with Herceptin and PERJETA as scheduled dose #48. Patient is here at cancer center today for her treatment, she reports being in her usual state of health with no issues. 1. Metastatic breast cancer. s/p bilateral double mastectomy, 07/2017, and Herceptin and PERJETA dose#46 today 08/26/17. 08/06/17 CEA is 1.6.; CA27-29 serial is 48 trending down. upcoming 2decho. patient hesitant of the pressure and pain that the procedure causes. We will reassess healing state of bilateral breast prior to 2Decho. of note, 2D echo have been within normal limits. 2- 2017 left ventricular ejection fraction of 60% with normal diastolic function. 08-22-16 left ventricular ejection fraction reported at 61% just decreased from previous 71% otherwise study remained stable when compared to previous. DIAGNOSTIC DATA reviewed on Nephros 07/13/17 CEA is 2.6 CA27-29 serial is 58.6 08/06/17 CEA is 1.6.; CA27-29 serial is 48 08/26/17 CEA is 1.9; CA27-29 serial is 52.2 09/16/[address] skull base to thigh done on 09/03/2017 Impression #1. interim bilateral mastectomy and construction trades contractor placement with expected warm activity surrounding the expanders. No evidence of soft tissue recurrence of soft tissue metastases disease. #2. reidentified 3 sclerotic bone lesions, all unchanged by CT. 2 of these, the T1 posterior element lesion and the left L4 pedicle lesion, demonstrated substantial increased activity on the patient's on the PET scan that I suspect represent a flare response to the patient's tamoxifen therapy. That actually is a good sign that the patient should have a good outcome on the tamoxifen. No new osseous lesions. PLAN 1.Continue Herceptin and PERJETA as scheduled dose #48 today. 2.2d echo due on and around end 09/2017, per patient request to allow more time for bilateral breast surgical site for healing. 3. PET done on 09/03/[address] Harvinder Barry 4. Will discuss with Dr. Perez in regards to future Rad ONC role if clinically indicated. 5. Patient informs me that she has follow up appointment with plastic surgeon on 09/17/2017 in [place]. RN to obtain notes from this visits. - per Patient she has a planned procedure called a "Alyssa flap" for which fat, skin, and blood vessels are cut from the wall of the lower belly and moved up to your chest to rebuild your breast. she would have the expanders on the bilateral breast filled with saline solution until approved/satisfactory size. The plastic surgeon will be removing abdominal adipose tissue and transfer it to the breast were the saline were. I did informed patient that I will have to check with Dr. Perez in regards to clearance from hem onc standpoint, to have this procedure 'alyssa flap' done -. RTC for f/u with either MD/MARLEN in three weeks with Cbc,cmp, and Mag. -. F/u with Dr. Perez on September 2017 -. Patient to contact Cancer center with any concerns. -. Patient to continue to keep active, and walk at least 30-45 minutes per day. -. Will await clearance and surgical team visit on 09/17/17 recommendations as to what type and when to incorporate Physical therapy. -Education, patient instructed to go to ER immediately and or call Clinic if any Shortness of Breath, Temp >/=100.4, fevers, chills, cardiac type chest pain , bleeding, excessive bruising, headaches, blurry vision, dizziness, abdominal pain, difficulty swallowing, and pain unrelieved by medication. TIME SPENT: 20 minutes > 15 minutes includes but not limited to discussion, counselling and co-ordination~ of care. Discussion with other health care providers, record review, review of lab work, diagnostic tests. Plan discussed extensively with patient. All the questions answered today. Thank you for the opportunity to be involved in the care of Kyra Gilmore. Billing Level: Return visit 3 High risk, High complexity VICTORINO EMMANUEL, ONC Sep 16, 2017 14:17
[2017-09-16 14:23] VITALS: BP 116/78
[2017-09-16] MEDS: HEPARIN FLSH (PORT) 500 UN/5ML IVP PRN (14:23)
[2017-10-05 12:17] VITALS: BP 115/80
--- NOTE | 2017-10-06 19:24 | [facility] ONCOLOGY NOTE ---
EVENT DATE: October 05, 2017 CHIEF COMPLAINT/REASON FOR VISIT Ms. Clifton is a pleasant, 37-year-old female with metastatic, triple-positive breast cancer, here for followup. She is currently on Herceptin, Perjeta, and tamoxifen. HISTORY OF PRESENT ILLNESS Ani returns. She continues her Herceptin and Perjeta and has received over 48 doses thus far. She is due for cycle 49 tomorrow. She has general control of the disease, but has three active areas in the spine as well as some disease seen in the breast. The most recent PET scan last month shows some mild change. Her breast cancer tumor marker is very slowly rising. As such, Dr. Figueroa has recommended continuing the current therapy, and that is very reasonable. We have future options such as the [facility] clinical trial versus T-DM1. We could consider switching to an aromatase inhibitor from the tamoxifen as well, however, need to be managed appropriately to do that. At this time, we will continue her current course. Her complaints today include dizziness and lightheadedness which may simply be volume depletion. She drinks a lot of tea and approximately two standard bottles worth of water a day. This may be insufficient, although she feels she has been drinking the same amount for many years on the Herceptin and Perjeta with none of these symptoms. She is concerned that she has disease of the brain. She has never had known disease in the brain to date. Her last imaging with MRI of the brain was over a year ago. SOCIAL HISTORY The patient is and has presented with her . She has two daughters. REVIEW OF SYSTEMS CONSTITUTIONAL: No fevers, chills, weight change. NEUROLOGIC: Patient notes some dizziness with standing and lightheadedness. All of her symptoms seem to be consistent with volume depletion; however, she is very concerned that this is due to cancer in the brain. No numbness or deficits of concern. CARDIOVASCULAR: No chest pain, dyspnea on exertion, or edema. RESPIRATORY: No shortness of breath, wheeze, or cough. GASTROINTESTINAL: No nausea or vomiting. GENITOURINARY: No dysuria or hematuria. MUSCULOSKELETAL: No significant joint pain, muscle pain, bone pain. Remainder of 14-point review of systems otherwise negative. PHYSICAL EXAMINATION VITAL SIGNS: Blood pressure 115/80, pulse 86, respiratory rate 16, temperature 96.5 Fahrenheit, oxygen saturation 95% on room air. Pain zero/10, fatigue zero/10. GENERAL: Stable condition, resting comfortably in the chair. BREASTS: Deferred today. Previously, we have noted bilateral mastectomy scars with expanders. She had an allergic reaction to CHLORAPREP in the past. This appears to be resolved. SKIN: No concerning rash anymore. Full physical exam deferred today due to amount of time spent in counseling, coordination of care, review of her records, and determination of the treatment plan. IMPRESSION AND PLAN Mrs. Clifton is a very pleasant patient with the following: Estrogen receptor-positive, HER-2/ben overexpressed metastatic breast cancer. Continue the Herceptin and Perjeta. She is due for cycle 49 tomorrow. We could consider alternative therapy, and I think the best therapy would be consideration of the [facility] trial with Dr. Figueroa. She has no considerable pain, and so I do not think radiation is required at this time. I do think she is slowly progressing, and we will be getting imaging with a repeat PET scan in late November, early December. We will see her each cycle with therapy, and she sees Dr. Gastelum next month and Dr. Figueroa in November. I will see her back in December. I answered all her questions today. BILLING Return visit level 4. Total time 30 minutes, counseling time 20. MTDD
[2017-10-07 08:09] VITALS: BP 114/79
[2017-10-07 08:32] LABS: PLATELET COUNT, AUTOMATED 222 K/uL (150-450)
[2017-10-07] MEDS: NS(*) 0.9% 500 ML BAG 500 ML IV PRN (08:44)
[2017-10-07] MEDS: HEPARIN FLSH (PORT) 500 UN/5ML IVP PRN (08:44)
[2017-10-07] MEDS: diphenhydrAMINE 25 MG CAP PO PRN (08:52)
[2017-10-07] MEDS: ACETAMINOPHEN 325 MG TAB PO PRN (08:53)
[~2017-10-27] VITALS: Ht 157.5 cm; Wt 76.9 kg
[~2017-10-27 08:19] MED LIST changes: +ALTEPLASE RECOMB 2 MG VIAL IVP PRN; +DEXTROSE 5%(*) 100 ML BAG 100 ML IVPB PRN; +LIDOCAINE/SOD BICARB 8.4% SYR ID PRN; +NS 0.9% IVPB ONE; +NS(*) 0.9% 100 ML BAG 100 ML IVPB PRN; +PERTUZUMAB IVPB ONE; +TRASTUZUMAB IVPB ONE; +WATER FOR INJ,STERILE 20 ML IVP PRN
[2017-10-27 08:20] VITALS: BP 125/81
[2017-10-27] MEDS: HEPARIN FLSH (PORT) 500 UN/5ML IVP PRN (08:30)
[2017-10-27] MEDS: NS(*) 0.9% 500 ML BAG 500 ML IV PRN (08:30)
[2017-10-27] MEDS: ACETAMINOPHEN 325 MG TAB PO PRN (08:57)
[2017-10-27] MEDS: diphenhydrAMINE 25 MG CAP PO PRN (08:57)
[2017-10-27] MEDS ORDERED: NS 0.9% IVPB ONE ×2 (09:05)
[2017-10-27] MEDS ORDERED: PERTUZUMAB IVPB ONE (09:05)
[2017-10-27] MEDS ORDERED: TRASTUZUMAB IVPB ONE (09:05)
[2017-10-27 10:57] VITALS: BP 120/81
--- NOTE | 2017-10-27 11:41 | Oncology Progress Note ---
History of Present Illness Evaluation Evaluation Date: Oct 27, 2017 Evaluation Time: 10:00 Primary Care Provider Primary Care Provider: Dr. Bhatti Accompanied by Accompanied by: Self Last seen by : Chris Chief Complaint Chief Complaint Treatment management for Herceptin and PERJETA cycle#50, s/p double mastectomy Oncology History Oncology History 04-06-15 US pelvis- remarkable for a 2.6 left ovarian cyst and 1.3 cm right ovarian cyst. 04-06-15 Echocardiogram with an LVEF -of 63%- remains stable 04-06-15 Bilateral mammogram- further view recommended. Consider MRI breast if needed 05-04-15 Right mammogram with benign finding- repeat in 3-6 months: loosely grouped calcifications in the upper outer quadrant of the right breast with no pleomorphism unless the clinical findings warrant more immediate attention. 06-28-15: PET/CT showed uptake in endometrial cavity and a lesion on labia. Transvaginal US scheduled. 10-05-15 Echocardiogram EF was 67% Bilateral MRI of the breast completed on 11-12-15 BI-RADS 6: Multiple areas of clumped, non-mass like enhancement seen in the upper lateral and inferior lateral portion of the right breast similar in appearance to the prior outside MR dated 06/19/14 consistent with the history of known metastatic right breast cancer. Correlation with followup right mammogram is recommended given the previous findings of slightly increasing calcifications upper outer quadrant of the right breast as seen on the mammogram from 05/04/15. - recommendation was from mammogram on 05-04-15 Perjeta and Herceptin and Tamoxifen ongoing. Tumor markers remain stable in the 20 range- slightly increased to 25 on 05-22-15 and then back down to 23.6 on 06-29-15 and 23.0 on 07-20-1509/2615: CEA was 1.5 and CA 27.29 2 was 26. 10/29/15: CEA was 1.4, CA 27.29 was 26.8 01-23-16 CEA was 1.3 and CA 27.29 was 28.7 02/13/2016 CEA was 1.3 and CA 27.29 is 25.7 01/18/16: PET scan has SUV elevation from previous study in the thoracic and lumbar spine. MRI of Lumbar spine and thoracic spine completed on and remains relatively stable from previous. It is noted that patient has osseous metastases at T1 and T9 consistent with treated metastatic foci, and L4 treated pedicle and articular mass. Patient has not received any radiation therapy to the area. 02/11/15: MRI L/T spine: T1 and T9 osseous metastases as detailed above with imaging features consistent with treated metastatic foci. L4 left pedicle and articular mass metastasis as detailed above. The differential diagnosis would include a treated metastatic focus versus localized stress reaction without comp lete spondylolysis. L2-3 focal central disc protrusion (5 mm) resulting in localized secondary central canal stenosis due to thecal sac effacement from focal disc pathology. 03-05-16 breast disease discussed at tumor Board in [place]. Biopsy of T- spine lesion is recommended. No local breast surgery recommended. 03/21/16: PET/CT scan identified pre-existing osseous lesions that are slightly more metabolically active and on previous examination. Nodular densities in the lateral aspect of the right breast remains stable and have low level metabolic activity. There is no evidence of abnormal hyper metabolism elsewhere. Right upper lobe subpleural micronodules are stable and continued to be non- hypermetabolic. 03/26/2016: Patient will start Lupron 3.75 mg injections given monthly 2-3 months. She plans on having a complete hysterectomy in June when her sister can come to the [facility] and help take care of her kids. Patient would like the 2nd dose to go through mail-order delivery due April 25. She was scheduled for 2-3 injections and will continue on oral tamoxifen daily. 05/13/2016 MRI T-spine: Bone metastasis and spinous process and bilateral lamina at T1 slightly increased enhancement, T9 unchanged 05/16/2016: Biopsy of T1: Positive for breast cancer primary, development of lower back pain 05/28/16 Mammogram identified a new calcification of the right upper breast. 06/04/2016 MRI L-spine, patient reports improving pain. Patient reports that she received 5 doses of radiation therapy to the L-spine in the [place] clinic. Patient also shares that she had her ovaries removed in [place]. Specific date is unknown. 06/16/2016: Salpingo-oophorectomy Lupron discontinued 07/05/[address] Gastelum in [place] clinic: Continue tamoxifen, PET/CT 08/04/2016 and follow-up, mammogram yearly, echocardiogram every 3 months, continue Herceptin and Perjeta. 08/01/2016: PET/CT shows decreasing blastic bone disease previously seen. Mild glucose activity in the right breast slightly increased and a new focus of warm activity in the superior right breast. Warm activity in the subcentimeter right inguinal lymph node slightly increased. 08-22-16 left ventricular ejection fraction reported at 61% just decreased from previous 71% otherwise study remained stable when compared to previous 11/18/2016: Patient reports PET/CT scan reviewed with Dr. Gastelum was essentially unremarkable. MRI of the lumbar spine shows resolution or stable previously treated metastatic disease. MRI of the breast scheduled for today was not completed due to not being authorized by insurance. This will be rescheduled. Patient reports that she will follow with the surgeon to discuss possible breast surgery. 12/08/2016: Left ventricular ejection fraction on 2-D echocardiogram is stable at 60% 02/03/2017: PET/CT scan remarkable for 2 nodular densities in the right breast that it increased in size and hypermetabolic. There is a new hypermetabolic 0.8 cm right subpectoral node. Pre-existing sclerotic lesion in the posterior elements of T1 is now slightly hypermetabolic. Patient has consult did with surgery and is thinking about bilateral mastectomy with breast reconstruction in April. 2017: Vitamin D level noted to be at 27. Patient started on 50,000 units of vitamin D weekly and encouraged to take 2000 units daily. Patient is not compliant with the daily dose. left ventricular ejection fraction of 60% with normal diastolic function. 2. Normal chamber sizes with the right ventricle being the upper range of normal in size.3. A trileaflet aortic valve with no abnormalities.4. There is a trace amount of mitral insufficiency with no mitral stenosis.5. A trace amount of pulmonic insufficiency.6. A mild amount of tricuspid insufficiency with an estimated right ventricular systolic pressures of 41mm Hg which does include an estimated right atrial pressure of 3mm Hg.7. In comparison with the examination done on 12/08/2016 the only change is that the right ventricular pressures have slightly increased from 27 to 41mm Hg which is slightly elevated. Patient is referred to cardiology. Treatment Treatment 08/04/2017 Herceptin and PERJETA #46 08/26/2017 Herceptin and PERJETA #47 09/16/2017 Herceptin and PERJETA #48 10/27/2017 Herceptin and PERJETA #50 HPI HPI Mrs. Dylan Rae, is a very pleasant 37 year old female who has Aggressive HER2/ben overexpressed metastatic right breast cancer, s/p double mastectomy 07/22/2017. on treatment Herceptin and PERJETA #50. Patient reports completing radiation therapy 5 doses to the L-spine status post biopsy identifying metastatic disease consistent with primary breast cancer which was completed in [place] with Dr. Dumas. Besides being concerned of having brain disease, her last MRI was done lat year, was negative for disease. There was an MRI ordered recently, for which radiology informed patient will not be able to proceed with MRI due to the expanders containing stainless steel magnets. I was able to addressed and answer some additional questions that the patient had in regards to her Hgb of 11.2 which has been trending up nicely after her double mastectomy in 07/22/17. We also spoke about an article that the patient read in regards to Imaging and risks of cancer. I explained to patient to the best of my knowledge and answer her questions Patient reports being in her usual state of health, She denies headaches, dizziness, no fevers at home, no chills, no pain, no nausea vomiting diarrhea,no cardiac type chest pain, no abdominal pain, no bruising, or bleeding, no skin rashes,on physical exam bilateral surgical site of the breast incision clean dry and intact, tenderness significantly improving, no edema or no lumps, no hematoma, appetite and hy dration intake okk, patient keeps active and walks frequently. Strong family history of maternal breast cancer. off note. Disease Initially presented with painful palpable lump in her right breast in early March,. Mammogram showed moderately dense fibroglandular tissue and a spiculated nodule measuring 1.7 cm in the upper outer breast. Right upper outer breast cancer - primary. She was also found to have metastatic disease in her bone- L spine, making her stage 4. PET scan completed on 03/21/2016 showed increased hypermetabolic activity in the spine without other areas of disease process with activity. She started on Lupron 3.75 mg injection given monthly on 03/28/2016 to complete 2-3 months followed with hysterectomy in June which was completed. Diagnostic Studies Result Diagram: 10/27/17 0830 10/27/17 0830 PMH Patient History: FH: breast cancer MOTHER Social/Occupational History Social History: Social History This is a 37 Yr old Unknown female, she is M and has [] Children Hx Smoking: No Smoking Status: Never Smoker Allergies & Medications Allergies: Coded Allergies: povidone-iodine (Verified Allergy, Mild, UNKNOWN, 03/19/15) soap (Verified Allergy, Mild, UNKNOWN, 03/19/15) chlorhexidine (Verified Allergy, Unknown, RASH, 07/03/15) nystatin (Verified Allergy, Unknown, 03/19/15) Home Meds Active Scripts Tamoxifen Citrate (TAMOXIFEN CITRATE) 20 Mg Tablet, 20 MG PO DAILY, #90 TAB 3 Refills Prov:GAGE PARKER UR COORDINATOR-BC, ONC 03/20/16 Reported Medications Trastuzumab (Herceptin) Unknown Strength Vial 05/25/17 Discontinued Scripts Fluticasone Prop 50 Mcg Ns (FLONASE 50 MCG NS) 16 Gm [place].susp, 2 SPRAYS NS QDAY, #1 BOT 1 Refill Prov:KEVEN TUTTLE DNP, UR COORDINATOR-BC 05/01/17 Review of Systems Constitution: Denies Appetite/Weight Change, Denies Fever/Chills/Sweating, Denies Recent Infection, Denies Other HEENT: No EARS: Tinnitus, No NOSE: Nasal Discharge, No THROAT: Sore Throat, No EYES: Dipolpia, No EARS: Hearing Problems, No NOSE: Epistaxis, No THROAT: Mouth Ulcers, No EYES: Vision Change, No OTHER Respiratory: No Cough, No Expectoration, No Hemoptysis, No Shortness of Breath, No OTHER Cardiovascular: No Chest Pain, No Orthopnea, No Edema, No Palpitations, No OTHER Gastrointestinal: No Nausea, No Vomitting, No Diarrehea, No Constipation, No Heart Burn, No Swallowing Difficulties, No Abdominal Pain, No Other Gentiourinary: Dysuria Musculoskeletal: Bone Pain Hematological: Fatigue Skin: No Skin Rash, No Lumps, No Erythema, No Dry Skin, No Moist Skin, No Other Psychiatric: No Anxiety, No Depression, No Other Vital Signs Vital Signs Temperature: 97.5 Pulse: 75 BP Systolic: 120 BP Diastolic: 81 Respiratory Rate: 17 O2 SAT: 96 O2 Delivery: Room Air Height (feet) 5 Height (inches) 62.00 Weight lb: 0 Weight oz: 3.0 Weight Kg (Dilip): [id number] Pain: 0 Physical Exam General: Looks Stable, Well Developed, Well Nourished HEENT: HEAD:Atraumatic Neck: Supple Lungs: Clear to Auscultation Heart: Regular Rate and Rhythm Abdomen: Soft and Nontender Extremities: No Cyanosis, No Clubbing, No Edema, No Other Lymphatics: No Peripheral Lymphadenopathy, No Other Psychiatric: Mood appears normal, Affect appears normal Breast: No Nipple Discharge, Other (surgical incision on bilateral breast, clean dry intact. No signs of infections.) Assessment and Plan Assessment and Plan 1. Metastatic breast cancer. s/p bilateral double mastectomy, 07/2017, 09/17/17 s/p Saline filling to the expanders in preparation for breast reconstruction. Herceptin and PERJETA dose#50 today 10/27/17. Cancer markers slowly rising. Patient is concerned of having brain disease, her last MRI was done lat year, was negative for disease. There was an MRI ordered recently, However given the type of expanders that the patient has " [place] [employer] Certified Registered Dental Assistant" contain a stainless steel magnetic point which according to the insert packet could be affected by a Magnetic MRI. These tissue expanders are not intended for use beyond Six months they were placed on 07/22/2017 at the same time that the double mastectomy surgery. So hopefully after breast reconstruction upcoming in 1-2 months approximately these expanders should be removed by 01/21/2018. DIAGNOSTIC DATA reviewed on [employer] 07/13/17 CEA is 2.6 CA27-29 serial is 58.6 08/06/17 CEA is 1.6.; CA27-29 serial is 48 08/26/17 CEA is 1.9; CA27-29 serial is 52.2 09/16/17 CA27-29 serial is 68.0 10/07/17 CA27-29 serial is 69.7 10/26/17 CA27-29 serial is pending PET CT skull base to thigh done on 09/03/2017 Impression #1. interim bilateral mastectomy and painter aircraft placement with expected warm activity surrounding the expanders. No evidence of soft tissue recurrence of soft tissue metastases disease. #2. reidentified 3 sclerotic bone lesions, all unchanged by CT. 2 of these, the T1 posterior element lesion and the left L4 pedicle lesion, demonstrated substantial increased activity on the patient's on the PET scan that I suspect represent a flare response to the patient's tamoxifen therapy. That actually is a good sign that the patient should have a good outcome on the tamoxifen. No new osseous lesions. PLAN - Continue Herceptin and PERJETA as scheduled dose #50 today. - Discuss with Dr Perez in regards to the [place] [employer] Certified Registered Dental Assistant" placed on 07/22/17 contain a stainless steel magnetic point which according to the insert packet could be affected by a Magnetic MRI. and not intended for use beyond Six months. This means patient MRI of the brain may need to be delayed until Expanders are removed. - Planned repeat PET due in late November /early December per Dr. Perez's Recs. - 09/17/17 s/p Saline filling to the expanders in preparation for breast reconstruction - Per Patient she has a planned procedure in 1-2 months, called a "Alyssa flap" for which fat, skin, and blood vessels are cut from the wall of the lower belly and moved up to your chest to rebuild your breast. she would have the expanders on the bilateral breast filled with saline solution until approved/satisfactory size. The plastic surgeon will be removing abdominal adipose tissue and transfer it to the breast were the saline were. will double check with Dr. Perez in regards to clearance from hem onc standpoint, to have this procedure 'alyssa flap' done -. RTC for f/u with either MD/MARLEN in three weeks with Cbc,cmp, and Mag. -. F/u with Dr. Perez in December after PET imaging 2017 -. Patient to contact Cancer center with any concerns. -. Patient to continue to keep active, and walk at least 30-45 minutes per day. -Education, patient instructed to go to ER immediately and or call Clinic if any Shortness of Breath, Temp >/=100.4, fevers, chills, cardiac type chest pain, bleeding, excessive bruising, headaches, blurry vision, dizziness, abdominal pain, difficulty swallowing, and pain unrelieved by medication. TIME SPENT: 30 minutes > 25 minutes includes but not limited to discussion, counselling and co-ordination~ of care. Discussion with other health care providers, record review, review of lab work, diagnostic tests. Plan discussed extensively with patient. All the questions answered today. Thank you for the opportunity to be involved in the care of Mrs. Gasparyan, Ani. Billing Level: Return visit 4 High risk, High complexity VICTORINO EMMANUEL, ONC Oct 27, 2017 11:41
== END 2017-11-01 ==
LOC: ONC 08:19
PROVIDERS: ATTEND Internal Medicine Medical Oncology
DX: Z51.11 Encounter for antineoplastic chemotherapy (principal); C50.411 Malignant neoplasm of upper-outer quadrant of right female breast; C79.51 Secondary malignant neoplasm of bone; Z79.899 Other long term (current) drug therapy
CPT/HCPCS: 82378; 82670; 83001; 85025; 85027; 86300; 86480; 86592; 87491; 87591; 93306; 96365; 96367; 96413; 96417; 99212; J1642; J7040; J7050; J9306; J9355; Q0163; 82040; 82247; 82310; 82374; 82435; 82565; 82947; 83735; 84075; 84132; 84155; 84295; 84450; 84460; 84520; 96368

== ENCOUNTER → 2017-12-18 | Outpatient (CLI) | payer OTHER ==
[~2017-12-18] MED LIST changes: -ALTEPLASE RECOMB 2 MG VIAL IVP PRN; -DEXTROSE 5%(*) 100 ML BAG 100 ML IVPB PRN; -LIDOCAINE/SOD BICARB 8.4% SYR ID PRN; -NS 0.9% IVPB ONE; -NS(*) 0.9% 100 ML BAG 100 ML IVPB PRN; -PERTUZUMAB IVPB ONE; -TRASTUZUMAB IVPB ONE; -WATER FOR INJ,STERILE 20 ML IVP PRN
== END ==
LOC: CT 00:59
PROVIDERS: ATTEND Internal Medicine Hematology & Oncology
DX: C50.919 Malignant neoplasm of unspecified site of unspecified female breast (principal)
CPT/HCPCS: 93306

== ENCOUNTER → 2018-01-20 | Outpatient (CLI) | payer OTHER ==
[~2018-01-20] MED LIST changes: +IOPAMIDOL 76% 50 ML INFUS BTL 100 ML ONE
--- NOTE | 2018-01-20 12:51 | RADIOLOGY IMAGING REPORT ---
[place] [facility] [place] NAME[place] Kyra Clifton : 1980 MR: [id number] V: [id number] EXAM DATE: ORDERING PHYSICIAN: RAVEN AMANDA TECHNOLOGIST: [facility] [place] Patient: Kyra Clifton : 1980 Visit/Account:[id number] Date of Sevice: 01/20/2018 HEAD W W/O CONTRAST INDICATION: Headaches, breast cancer COMPARISON: Brain MR May 28, 2016 TECHNIQUE: Pre and postcontrast head CT performed with sagittal and coronal reformations. 75 mL Isovu e-370 injected. One of the following dose optimization techniques was utilized in the performance of this exam: automated exposure control; adjustment of the mA and/or kV according to patient size; or u se of iterative reconstruction technique. Specific details can be referenced in the facility's radio logy CT exam operational policy. FINDINGS: The basal cisterns, copeland-white differentiation and convexity sulci are maintained. No intracranial he morrhage, hydrocephalus or midline shift. Normal orbital soft tissues. Chronic punctate right basal g anglia calcification noted. Bilateral basal ganglia perivascular spaces. Small right maxillary sinus mucous retention cyst. Clear mastoid air cells. Normal osseous structures. No apparent pathologic intracranial enhancement. No apparent vascular abnormality. IMPRESSION: Normal head CT without and with contrast. No metastatic disease or acute abnormality identified. Report Dictated By: Jim Avila MD at 01/20/2018 12:40 PM Report E-Signed By: Jim Avila MD at 01/20/2018 12:47 PM WSN:[id number]
--- NOTE | 2018-01-20 13:07 | RADIOLOGY IMAGING REPORT ---
FACILITY: [facility] PATIENT NAME: Kyra Clifton : 1980 MR: [id number] V: [id number] EXAM DATE: ORDERING PHYSICIAN: RAVEN AMANDA TECHNOLOGIST: Location: [facility] [place] Patient: Kyra Clifton : 1980 Visit/Account:[id number] Date of Sevice: 01/20/2018 EXAMINATION: CT neck with IV contrast HISTORY: Breast cancer TECHNIQUE: CT was obtained through the neck following IV contrast administration. Sagittal and co ana reformatted images were generated. 75 mL of IV Isovue-370 injected. One of the following dose optimization techniques was utilized in the performance of this exam: autom ated exposure control; adjustment of the mA and/or kV according to patient size; or use of iterative reconstruction technique. Specific details can be referenced in the facility's radiology CT exam ope rational policy. COMPARISON: Chest CT March 25, 2017 FINDINGS: Parotid/submandibular and thyroid glands: Normal. Pharyngeal and retropharyngeal soft tissues: Mild bilateral tonsillar pillar reactive hypertrophy. No apparent mass in this region. 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 Larynx/glottis and airway: Normal. Lymph nodes: Normal. Vessels: Left chest wall port with catheter extending into the SVC with tip not imaged. Visualized orbits / brain: No significant finding. Upper chest: Punctate right upper lobe partially imaged calcified granuloma. Bones/sinuses/mastoid air cells: Small right maxillary sinus mucous retention cyst. Sclerotic and lucent metastasis within the T1 spinous process appears more lucent posteriorly but is otherwise unchanged. Unchanged sclerosis within the left T1 lamina and left articular pillar. The rig ht T1 articular pillar appears more lucent compared to prior and more sclerotic on the prior exam. 4. 5 mm sclerosis within the posterior upper T1 vertebral body is new. IMPRESSION: 1. No neck mass or neck adenopathy. 2. Mixed sclerotic and lucent metastatic lesion involving the T1 spinous process, bilateral T1 lamina and left T1 articular pillar appears more lucent in the spinous process and right lamina but is othe rwise unchanged in size. 3. New 4.5 mm sclerotic metastasis within the posterior upper T1 vertebral body. Report Dictated By: Jim Avila MD at 01/20/2018 12:47 PM Report E-Signed By: Jim Avila MD at 01/20/2018 1:02 PM WSN:[id number]
== END ==
LOC: CT 00:44
PROVIDERS: ATTEND Internal Medicine Hematology & Oncology
DX: C79.51 Secondary malignant neoplasm of bone (principal); R91.8 Other nonspecific abnormal finding of lung field; J34.1 Cyst and mucocele of nose and nasal sinus; Z95.828 Presence of other vascular implants and grafts; C50.911 Malignant neoplasm of unspecified site of right female breast
CPT/HCPCS: 70470; 70491; Q9967

== ENCOUNTER 2018-02-11 08:30 | Outpatient (RCR) | payer OTHER ==
[2017-11-17 08:20] VITALS: BP 118/72
[2017-11-17] MEDS: NS(*) 0.9% 500 ML BAG 500 ML IV PRN (09:10)
[2017-11-17] MEDS: diphenhydrAMINE 25 MG CAP PO PRN (09:29)
[2017-11-17] MEDS: ACETAMINOPHEN 325 MG TAB PO PRN (09:29)
[2017-11-17] MEDS: HEPARIN FLSH (PORT) 500 UN/5ML IVP PRN (10:37)
[2017-11-17 11:10] VITALS: BP 107/87
[2017-12-08 08:20] VITALS: BP 124/86
[2017-12-08] MEDS: diphenhydrAMINE 25 MG CAP PO PRN (09:02)
[2017-12-08] MEDS: ACETAMINOPHEN 325 MG TAB PO PRN (09:03)
[2017-12-08] MEDS: HEPARIN FLSH (PORT) 500 UN/5ML IVP PRN (11:11)
[2017-12-08] MEDS: NS(*) 0.9% 500 ML BAG 500 ML IV PRN (11:12)
--- NOTE | 2017-12-08 16:58 | ONCOLOGY FOLLOW UP NOTE ---
EVENT DATE: December 08, 2017 CHIEF COMPLAINT "I'm doing pretty well." HISTORY OF PRESENT ILLNESS Patient is a 37-year-old female who was seen today in followup. She continues on every three-week Herceptin and Perjeta and will receive cycle #52 today. She is tolerating her treatment without issue. She continues on tamoxifen. She has had recent charley horses. We discussed the importance of increasing fluids. She has also had some intermittent headaches. MRI of the brain was planned, but this was not able to be done as she has expanders in place. LEO flap reconstruction to be scheduled early 2018. She denies any other complaints. ONCOLOGY HISTORY Presented with a right breast mass in March 2012. Ultrasound showed a hypoechoic lesion with spiculation as well as a large lymph node in the right axilla. Biopsy of the breast mass was grade 2, ER diffusely positive, WI focally positive, and HER2 amplified. Invasive ductal carcinoma with associated DCIS. Right axillary node was positive for malignancy. Noted to have focal hypermetabolic lesions in T1 and T9, consistent with metastases. She underwent palliative treatment with pertuzumab and docetaxel from April 2012 through December 2012. Imaging in 2014 and 2015 showed no evidence of recurrence. She has been maintained on tamoxifen, pertuzumab, and Herceptin since 2014. MEDICAL HISTORY Metastatic right breast cancer 2012. SURGICAL HISTORY 1. JANICE-BSO, June 2016. 2. Bilateral mastectomy with implant reconstruction, July 2017. FAMILY HISTORY Mother and maternal aunt had breast cancer. Patient is BRCA negative. SOCIAL HISTORY Patient is . She is from [facility] [place]. She has two daughters, ages 9 and 11. At the time of this dictation, she is not working. She does not smoke or drink alcohol. MEDICATIONS 1. Tamoxifen 20 mg daily. 2. Fluticasone. ALLERGIES CHLORHEXIDINE and NYSTATIN. REVIEW OF SYSTEMS A 12-point review of systems is performed and is negative except as stated in the History of Present Illness. PHYSICAL EXAMINATION VITAL SIGNS: Weight 77.6 kg, BP 124/86, P 83, R 16, temp 97.7, O2 sat 94%. GENERAL: Patient is a well-developed, well-nourished female in no acute distress. HEAD: Atraumatic, normocephalic. EYES: Sclerae anicteric. MOUTH: Moist mucous membranes. NECK: Supple. No adenopathy. BREASTS: Status post bilateral mastectomy with data analytics developer reconstruction. LUNGS: Clear bilaterally. CARDIOVASCULAR: Heart rate regular, 83 per minute, without murmur, S3, S4. ABDOMEN: Soft, nontender, with active bowel sounds. EXTREMITIES: No edema. NEUROLOGIC: Nonfocal. LABORATORIES CBC today reveals a WBC of 5.2, hemoglobin 12.2, hematocrit 37.1, platelets 212,000. CMP was within normal limits. Vitamin D 17. IMPRESSION AND PLAN The patient is a 37-year-old female diagnosed with triple-positive breast cancer in 2012. She has been on Herceptin and Perjeta and will receive cycle #52 today. 1. Breast cancer. Cycle #52 of Herceptin and Perjeta today. She is tolerating this without issue. 2. Restaging. PET scan showed the three known thoracic lesions. Two of them have slightly decreased activity and one with slightly increased activity. Will continue to monitor. She is asymptomatic. However, tumor markers have been slowly increasing. CEA and CA27.29 are pending today. 3. Hormone therapy. She has been on tamoxifen for some time. I have reviewed her PET scan as well as slowly increasing tumor markers with Dr. Perez, and we discussed the possibility of changing her to an aromatase inhibitor. I spent a total of 30 minutes with her discussing possible side effects including hot flashes/night sweats, arthralgias/myalgias, and possible loss of bone density. She will be scheduled for a baseline bone density and decision to switch to an aromatase inhibitor will be made based on all of the above. 4. Cardiac. Last echocardiogram on 10/05/17 showed an ejection fraction of 60- 65%. Another echocardiogram is ordered at the end of December. 5. Low vitamin D. Vitamin D level is 17. We discussed the importance of vitamin D replacement. She will begin vitamin D3 at 5000 International Units daily. Will continue to monitor. 6. Follow up in three weeks for continued Herceptin and Perjeta as well as decision regarding switching to an aromatase inhibitor. MTDD
[2017-12-29 11:36] VITALS: BP 133/75
[2017-12-29] MEDS: NS(*) 0.9% 500 ML BAG 500 ML IV PRN (11:36)
[2017-12-29 11:40] LABS: PLATELET COUNT, AUTOMATED 215 K/uL (150-450)
[2017-12-29] MEDS: diphenhydrAMINE 25 MG CAP PO PRN (12:05)
[2017-12-29] MEDS: HEPARIN FLSH (PORT) 500 UN/5ML IVP PRN (12:06)
[2017-12-29] MEDS: ACETAMINOPHEN 325 MG TAB PO PRN (12:06)
[2017-12-29 13:44] VITALS: BP 118/73
--- NOTE | 2017-12-29 20:37 | ONCOLOGY FOLLOW UP NOTE ---
EVENT DATE: December 29, 2017 CHIEF COMPLAINT Followup for Herceptin and Perjeta. HISTORY OF PRESENT ILLNESS Patient is a 37-year-old female who was seen today in followup. She continues on every three-week Herceptin and Perjeta and will receive cycle #53 today. She continues to tolerate this without problem. She is also on tamoxifen. When seen at last visit, we had discussed transitioning to an aromatase inhibitor. She underwent JANICE-BSO in June 2016. Tumor markers have been slowly increasing from 48 in July 2017 to 89 in November 2017. Last PET scan showed minimal activity in one of the known metastatic lesions. We had attempted to schedule her for a bone density, but due to insurance issues, she will not be able to do this until April 2018. She would also like to discuss this with Dr. Gastelum. CT of the brain and neck are also pending insurance (history of headaches, intermittent). MRI of the brain was not able to be done as she has expanders in place. She denies any other new complaints. ONCOLOGY HISTORY Presented with a right breast mass in March 2012. Ultrasound showed a hypoechoic lesion with spiculation as well as a large lymph node in the right axilla. Biopsy of the breast mass was grade 2, ER diffusely positive, FL focally positive, and HER2 amplified invasive ductal carcinoma with associated DCIS. Right axillary node was positive for malignancy. Noted to have focal hypermetabolic lesions in T1 and T9, consistent with metastases. She underwent palliative treatment with pertuzumab and docetaxel from April 2012 through December 2012. Imaging in 2014 and 2015 showed no evidence of recurrence. She has been maintained on tamoxifen, pertuzumab, and Herceptin since 2014. MEDICAL HISTORY Metastatic right breast cancer 2012. SURGICAL HISTORY 1. JANICE-BSO, June 2016. 2. Bilateral mastectomy with implant reconstruction, July 2017. FAMILY HISTORY Mother and maternal aunt had breast cancer. Patient is BRCA negative. SOCIAL HISTORY Patient is . She is from [facility]. She has two daughters, ages 9 and 11. At the time of this dictation, she is not working. She does not smoke or drink alcohol. MEDICATIONS 1. Tamoxifen 20 mg daily. 2. Fluticasone. 3. Vitamin D3, 5000 International Units daily. ALLERGIES CHLORHEXIDINE and NYSTATIN. REVIEW OF SYSTEMS A 12-point review of systems is performed and is negative except as stated above. PHYSICAL EXAMINATION VITAL SIGNS: Weight 78.6 kg, BP 133/75, P 82, R 16, temp 97.6, O2 sat 98%. GENERAL: Patient is a well-developed, well-nourished female in no acute distress. HEAD: Normocephalic, atraumatic. EYES: Sclerae anicteric. MOUTH: Moist mucous membranes. No lesions. NECK: Supple. No JVD. BACK: Mild tenderness on palpation on right upper back. LUNGS: Clear bilaterally. CARDIOVASCULAR: Heart rate regular, 80 per minute, without murmur, S3, or S4. EXTREMITIES: No edema. NEUROLOGIC: Nonfocal. LABORATORIES CBC today reveals a WBC of 4.9, hemoglobin 11.7, hematocrit 34.8, platelets 215,000. CMP is within normal limits. CEA and CA27.29 are pending. IMPRESSION AND PLAN The patient is a 37-year-old female diagnosed with triple-positive breast cancer in 2012. She continues on tamoxifen. She has been on Herceptin and Perjeta and will receive cycle #53 today. 1. Breast cancer. Cycle #53 of Herceptin and Perjeta. She has no issues with this treatment. 2. Response. CA27.29 has been slowly increasing from 48 in July 2017 to 89 in November 2017. Another level is pending today. CEA has remained within normal limits. PET scan showed the three known thoracic lesions. Two of them have slightly decreased activity and one with slightly increased activity. 3. Hormone therapy. She has been on tamoxifen for many years. We reviewed her PET scan as well as the increasing tumor markers and discussed the possibility of changing her to an aromatase inhibitor. She was unable to have a bone density done due to insurance issues and will be eligible for this in April 2018. However, she would prefer to speak with Dr. Gastelum to get her opinion before changing to another medication. She will also follow up with Dr. Perez. She plans to make an appointment with Dr. Gastelum in the near future. 4. Bone health. Vitamin D level was 17. She began vitamin D3 5000 International Units daily. 5. Cardiac. Echocardiogram on 12/18/17 showed a stable ejection fraction of 65-70%. Next echo will due due in 03/2018. 6. Headaches, intermittent. She is scheduled for a CT of the brain and neck pending insurance. MRI was not able to be done as she has expanders in place. 7. Follow up as scheduled for continued care, earlier if there is a problem. cc: Magy Gastelum MD [facility]
[2018-01-13 08:03] VITALS: BP 121/82
--- NOTE | 2018-01-13 20:32 | ONCOLOGY FOLLOW UP NOTE ---
EVENT DATE: January 13, 2018 CHIEF COMPLAINT/REASON FOR VISIT Ms. Clifton is a pleasant, 37-year-old female with metastatic breast cancer, here for followup on Herceptin, Perjeta, and tamoxifen. HISTORY OF PRESENT ILLNESS Ani returns. She is currently on every three-week Herceptin and Perjeta and received cycle 53 of this approximately 2-1/2 weeks ago. She tolerates this without any issues. No cardiac symptoms of concern. She is also on tamoxifen, and I have talked with her previously about transitioning to an aromatase inhibitor. She underwent a JANICE/BSO in June 2016. Her tumor markers continue to slowly increase from approximately 50 to 60 up to 70 to 90 now. Her last PET scan did show some activity in one of the known metastatic lesions. She has not been able to get a bone density due to insurance issues, unfortunately, and so she has not started the aromatase inhibitor. I feel that the benefits outweigh the risks, but she would like to meet with Dr. Gastelum to discuss this before she makes any decisions. MRIs are not able to be done as she has expanders in place. These may be able to be removed in the future, but they are still present right now. She has noted increasing pain in the upper cervical spine right below the occiput as well as in the mid thoracic spine. These are in areas where we believe that she has known metastatic lesions. Given the increased pain, I would like to get a CT of the cervical and thoracic spine, and she would like to follow up with Dr. Gastelum and Dr. Figueroa as soon as possible. I recommend consideration of a clinical trial. ONCOLOGY HISTORY Presented with a right breast mass in March 2012. Ultrasound showed a hypoechoic lesion with spiculation as well as a large lymph node in the right axilla. Biopsy of the breast mass was grade 2, ER diffusely positive, IA focally positive, and HER2 amplified invasive ductal carcinoma with associated DCIS. Right axillary node was positive for malignancy. Noted to have focal hypermetabolic lesions in T1 and T9, consistent with metastases. She underwent palliative treatment with pertuzumab and docetaxel from April 2012 through December 2012. Imaging in 2014 and 2015 showed no evidence of recurrence. She has been maintained on tamoxifen, pertuzumab, and Herceptin since 2014. MEDICAL HISTORY Metastatic right breast cancer 2012. SURGICAL HISTORY 1. JANICE-BSO, June 2016. 2. Bilateral mastectomy with implant reconstruction, July 2017. FAMILY HISTORY Mother and maternal aunt had breast cancer. Patient is BRCA negative. SOCIAL HISTORY Patient is . She is from [facility]. She has two daughters, ages 9 and 11. At the time of this dictation, she is not working. She does not smoke or drink alcohol. MEDICATIONS 1. Tamoxifen 20 mg daily. 2. Fluticasone. 3. Vitamin D3, 5000 International Units daily. ALLERGIES CHLORHEXIDINE and NYSTATIN. REVIEW OF SYSTEMS CONSTITUTIONAL: No fevers, chills. HEENT: Positive headaches. NECK: Positive neck pain. CARDIOVASCULAR: No chest pain, dyspnea on exertion, or edema. RESPIRATORY: No shortness of breath, wheeze, cough. GASTROINTESTINAL: No nausea or vomiting. GENITOURINARY: No dysuria, hematuria. No other concerning issues. MUSCULOSKELETAL: Positive back pain. No arthralgias. ENDOCRINE: No heat or cold intolerance. PSYCHIATRIC: High stress. SKIN: No concerning rashes or lesions. Remainder of review of systems otherwise unremarkable. PHYSICAL EXAMINATION VITAL SIGNS: Blood pressure 121/82, pulse 80, respiratory rate 16, temperature 97.1 Fahrenheit, oxygen saturation 99% on room air. Weight 80.4 kg. Pain 0/10. Fatigue 0/10. GENERAL: Stable condition, resting comfortably in the chair. HEENT: Normocephalic, atraumatic. CARDIOVASCULAR: Regular rate and rhythm. MUSCULOSKELETAL: She has pain in the neck and back in the areas that she describes above. ABDOMEN: Soft, nontender. EXTREMITIES: No clubbing, cyanosis, or edema. EGOG PERFORMANCE STATUS: One. Remainder of physical exam otherwise unremarkable. IMPRESSION/REPORT/PLAN Mrs. Clifton is a pleasant, 37-year-old female with triple-positive breast cancer diagnosed in 2012. She continues on tamoxifen, Herceptin, and Perjeta. She is due for her next Herceptin and Perjeta dose on the 19 of January, which will be cycle 54. 1. Breast cancer. Continue current therapy. I do believe she has progressive disease and would recommend transition to a clinical trial. She would like to follow up with Dr. Gastelum and Dr. Figueroa and will try to move this up if possible. It is currently arranged for later this month. 2. Bone health. Her vitamin D has been low. She should continue the vitamin D supplement. 3. Cardiac. Her echocardiogram has been appropriate. 4. Headaches. We have been unable to get a CT of the brain and neck due to recent insurance issues. We need to push for this again as she is having increased pain. MRI not able to be done as she has expanders in place. 5. I would like her to see Jeanine in approximately one month and me in approximately two months. She may need to transition to clinical trial in [place], in which case she will get her care there. We may extend these visits to later. Her primary oncologist is Dr. Gastelum, and I along with Ms. Flores are covering her therapy here in [place]. I answered all her questions today. BILLING Return visit level 4. Total time 30 minutes, consulting time 20. MTDD
[2018-01-20 08:06] VITALS: BP 135/89
[2018-01-20] MEDS: diphenhydrAMINE 25 MG CAP PO PRN (09:10)
[2018-01-20] MEDS: NS(*) 0.9% 500 ML BAG 500 ML IV PRN (09:11)
[2018-01-20] MEDS: HEPARIN FLSH (PORT) 500 UN/5ML IVP PRN ×2 (09:11→12:18)
[2018-01-20] MEDS: ACETAMINOPHEN 325 MG TAB PO PRN (09:11)
[2018-01-20 11:09] VITALS: BP 131/83
[~2018-02-11] VITALS: Ht 161 cm; Wt 79.3 kg
[~2018-02-11 08:30] MED LIST changes: +ALTEPLASE RECOMB 2 MG VIAL IVP PRN; +DEXTROSE 5%(*) 100 ML BAG 100 ML IVPB PRN; -IOPAMIDOL 76% 50 ML INFUS BTL 100 ML ONE; +LIDOCAINE/SOD BICARB 8.4% SYR ID PRN; +NS 0.9% IVPB ONE; +NS(*) 0.9% 100 ML BAG 100 ML IVPB PRN; +PERTUZUMAB IVPB ONE; +TRASTUZUMAB IVPB ONE; +WATER FOR INJ,STERILE 20 ML IVP PRN
[2018-02-11 09:01] VITALS: BP 122/83
[2018-02-11] MEDS: diphenhydrAMINE 25 MG CAP PO PRN (09:41)
[2018-02-11] MEDS: ACETAMINOPHEN 325 MG TAB PO PRN (09:41)
[2018-02-11] MEDS: NS(*) 0.9% 500 ML BAG 500 ML IV PRN (09:41)
[2018-02-11] MEDS: HEPARIN FLSH (PORT) 500 UN/5ML IVP PRN (09:43)
[2018-02-11] MEDS ORDERED: PERTUZUMAB IVPB ONE (09:50)
[2018-02-11] MEDS ORDERED: NS 0.9% IVPB ONE ×2 (09:50)
[2018-02-11] MEDS ORDERED: TRASTUZUMAB IVPB ONE (09:50)
--- NOTE | 2018-02-11 12:04 | NUR ---
MATT rec'd information that the pt was still on the [employer] co-pay program for herceptin and perject. She can received up to $25,000 per year for each drug. MATT emailed Zoila Valentine and Parisa Genao about this to see if we could quickly close out the account and apply her infusion today toward her deductible. Parisa indicated she was going to keep an eye on it's progress and would get with Zoila to submit the amount to the program.
--- NOTE | 2018-02-11 12:06 | NUR ---
Pt completed follow up HADS form - D:5, A:3 (no concerns)
== END 2018-02-14 ==
LOC: ONC 08:30
PROVIDERS: ATTEND Internal Medicine
DX: Z51.11 Encounter for antineoplastic chemotherapy (principal); C50.411 Malignant neoplasm of upper-outer quadrant of right female breast; C79.51 Secondary malignant neoplasm of bone; Z17.0 Estrogen receptor positive status [ER+]; R51 Headache; E55.9 Vitamin D deficiency, unspecified
CPT/HCPCS: 82306; 82378; 82670; 83001; 85025; 85027; 86300; 96413; 96415; 96417; 99212; J1642; J7040; J7050; J9306; J9355; Q0163; 82040; 82247; 82310; 82374; 82435; 82565; 82947; 84075; 84132; 84155; 84295; 84450; 84460; 84520

== ENCOUNTER → 2018-04-01 | Outpatient (CLI) | payer OTHER ==
[~2018-04-01] MED LIST changes: -ALTEPLASE RECOMB 2 MG VIAL IVP PRN; -DEXTROSE 5%(*) 100 ML BAG 100 ML IVPB PRN; -LIDOCAINE/SOD BICARB 8.4% SYR ID PRN; -NS 0.9% IVPB ONE; -NS(*) 0.9% 100 ML BAG 100 ML IVPB PRN; -PERTUZUMAB IVPB ONE; -TRASTUZUMAB IVPB ONE; -WATER FOR INJ,STERILE 20 ML IVP PRN
== END ==
LOC: US 03-30 00:31
PROVIDERS: ATTEND Internal Medicine
DX: C50.911 Malignant neoplasm of unspecified site of right female breast (principal)
CPT/HCPCS: 93308

== ENCOUNTER → 2018-05-04 | Outpatient (CLI) | payer OTHER ==
[~2018-05-04] MED LIST changes: +IOPAMIDOL 76% 150 ML INFUS BTL 150 ML ONE; +NS 0.9% 25 ML BAG 50 ML ONE
--- NOTE | 2018-05-04 13:39 | RADIOLOGY IMAGING REPORT ---
FACILITY: [facility] - [place] PATIENT NAME: Kyra Clifton : 1980 MR: [id number] V: [id number] EXAM DATE: ORDERING PHYSICIAN: CINDY MATHUR TECHNOLOGIST: Location: [facility] [place] Patient: Kyra Clifton : 1980 Visit/Account:[id number] Date of Sevice: 05/04/2018 CTA chest with contrast EXAMINATION: CTA of the chest with IV contrast History : Shortness of breath, stage IV breast cancer TECHNIQUE: Pulmonary embolus protocol - Thin-slice axial imaging of the chest was performed during maximal pulmonary arterial opacification with intravenous nonionic iodinated contrast. 3D coronal sla b MIPs and 2D reconstructions in the coronal and sagittal planes were performed to aid in pulmonary e mbolus detection. Yoga Instructor images have been stored on PACS. One of the following dose optimization techniques was utilized in the performance of this exam: Autom ated exposure control; adjustment of the mA and/or kV according to the patient's size; or use of an i terative reconstruction technique. Specific details can be referenced in the facility's radiology C T exam operational policy. Contrast: 75 cc of Isovue-370 COMPARISON STUDIES: 03/25/2017. FINDINGS: Please note that this exam is optimized for assessment of the pulmonary arteries and is not intended as a diagnostic study of the thoracic aorta, coronary arteries or venous structures. Angiographic Findings: Pulmonary arteries: There are no filling defects in the main, right, left, lobar, segmental or visual ized sub-segmental branches of the pulmonary arterial system Other vasculature: Patient has a chemotherapy catheter in place. Additional non-angiographic findings: Lungs / Pleura: 3 mm right apical pulmonary micronodule image 77 is stable 3 mm left upper lobe micronodule image 141 appears new Right middle lobe granuloma image 150 is stable. Tiny calcified granuloma right upper lobe image 98 is stable. Mediastinum / Heather: negative. Heart / Pericardium: negative. Lymph node assessment: Slightly prominent left axillary lymph node image 73 measures 1.6 x 0.6 cm, previously 1.4 x 0.4 cm Musculoskeletal / Body wall: Postoperative changes are noted from bilateral mastectomy with implant reconstruction. There is significant skin thickening over the left breast and to a lesser extent ov er the right breast. Please correlate clinically. Sclerotic metastasis involving the spinous process of T1 extending into lamina and posterior vertebra l body is once again noted. There may be a pathologic fracture through the spinous process of T1. S clerotic metastasis to T9 vertebral body is also once again noted Upper abdomen: negative IMPRESSION: 1. No evidence for pulmonary emboli to the subsegmental level. 2. Reidentified is a sclerotic metastasis to the T1 spinous process extending into the lamina and po sterior vertebral body. There is a possible pathologic fracture involving the spinous process of T1 new from prior exam. 3. Sclerotic metastasis to T9 vertebral body is once again noted. 4. Postoperative changes are noted from bilateral mastectomy with subpectoral implant reconstruction . Significant skin thickening over the left breast is noted and to a lesser extent over the right br east. Differential diagnosis includes posttreatment change versus dermal recurrence. Please correla te clinically. 5. 3 mm left upper lobe pulmonary micronodule appears new. Right apical pulmonary nodule is stable. Report Dictated By: Thien Medrano MD at 05/04/2018 1:18 PM Report E-Signed By: Thien Medrano MD at 05/04/2018 1:35 PM WSN:[email or web address]
== END ==
LOC: CT 00:32
PROVIDERS: ATTEND Internal Medicine Medical Oncology
DX: C79.51 Secondary malignant neoplasm of bone (principal); R91.1 Solitary pulmonary nodule; Z90.13 Acquired absence of bilateral breasts and nipples; Z98.82 Breast implant status
CPT/HCPCS: 71275; Q9967

== ENCOUNTER 2018-05-05 08:10 | Outpatient (RCR) | payer OTHER ==
[2018-03-04 08:31] VITALS: BP 119/76
[2018-03-04] MEDS: NS(*) 0.9% 500 ML BAG 500 ML IV PRN (08:35)
[2018-03-04] MEDS: HEPARIN FLSH (PORT) 500 UN/5ML IVP PRN (08:35)
--- NOTE | 2018-03-04 08:41 | NUR ---
MATT emailed Natalie Wells about the pt's participation in the Co-pay program for herceptin/perjeta.
[2018-03-04] MEDS: ACETAMINOPHEN 325 MG TAB PO PRN (09:15)
[2018-03-04] MEDS: diphenhydrAMINE 25 MG CAP PO PRN (09:15)
[2018-03-04 10:51] VITALS: BP 125/78
--- NOTE | 2018-03-05 14:58 | NUR ---
PAOLA rec'd information that moving forward we will be collecting $10 ($5 for perjeta and $5 for herceptin) each time the patient comes in for treatment. Paola notified the patient of this plan.
[2018-03-29 08:10] VITALS: BP 111/77
[2018-03-29] MEDS: NS(*) 0.9% 500 ML BAG 500 ML IV PRN (08:29)
[2018-03-29] MEDS: HEPARIN FLSH (PORT) 500 UN/5ML IVP PRN (08:29)
[2018-03-29] MEDS: ACETAMINOPHEN 325 MG TAB PO PRN (08:52)
[2018-03-29] MEDS: diphenhydrAMINE 25 MG CAP PO PRN (08:53)
[2018-03-29 10:59] VITALS: BP 110/63
--- NOTE | 2018-03-29 14:12 | ONCOLOGY FOLLOW UP NOTE ---
EVENT DATE: March 29, 2018 CHIEF COMPLAINT Followup for metastatic breast cancer. HISTORY OF PRESENT ILLNESS Patient is a 37-year-old female who is seen today in followup. She will receive Herceptin and Perjeta, which she is tolerating without issue. At the end of January, she was transitioned from tamoxifen to anastrazole and she is tolerating this without any issues. She saw Dr. Gastelum in January 2018. Recent CT scan showed a new T1 lesion. She will undergo PET CT on April 02, 2018 and follow up with Dr. Gastelum after that. Dr. Gastelum is considering changing Herceptin to Kadcyla and this will be discussed with her after that visit. Otherwise, she feels well. She and her recently got their Green Cards. She is tentatively planning on opening a bakery. She will have her expanders replaced with implants in [place] on April 08, 2018. ONCOLOGY HISTORY Presented with a right breast mass in March 2012. Ultrasound showed a hypoechoic lesion with spiculation as well as a large lymph node in the right axilla. Biopsy of the breast mass was grade 2, ER diffusely positive, HI focally positive, and HER2 amplified invasive ductal carcinoma with associated DCIS. Right axillary node was positive for malignancy. Noted to have focal hypermetabolic lesions in T1 and T9, consistent with metastases. She underwent palliative treatment with pertuzumab and docetaxel from April 2012 through December 2012. Imaging in 2014 and 2015 showed no evidence of recurrence. She has been maintained on tamoxifen, pertuzumab, and Herceptin since 2014. Tamoxifen changed to anastrozole on February 04, 2018. MEDICAL HISTORY Metastatic right breast cancer 2012. SURGICAL HISTORY 1. JANICE-BSO, June 2016. 2. Bilateral mastectomy with implant reconstruction, July 2017. FAMILY HISTORY Mother and maternal aunt had breast cancer. Patient is BRCA negative. SOCIAL HISTORY Patient is . She is from [facility]. She has two daughters, ages 9 and 11. At the time of this dictation, she is not working. She does not smoke or drink alcohol. MEDICATIONS 1. Anastrozole 1 mg daily. 2. Fluticasone. 3. Vitamin D3, 5000 International Units daily. ALLERGIES CHLORHEXIDINE and NYSTATIN. REVIEW OF SYSTEMS A 12-point review of systems is performed and is negative except as stated above. PHYSICAL EXAMINATION VITAL SIGNS: Weight 79.3 kg, BP 111/77, P 84, R 16, temp 98.0, O2 sat 95%. GENERAL: Patient is a well-developed, well-nourished female in no acute distress. HEAD: Normocephalic, atraumatic. EYES: Sclerae anicteric. MOUTH: Moist mucous membranes. NECK: Supple. No JVD. LUNGS: Clear bilaterally. CARDIOVASCULAR: Heart rate regular, 84 per minute, without murmur, S3, or S4. EXTREMITIES: No edema. NEUROLOGIC: Nonfocal. LABORATORIES CBC today reveals a WBC of 5.0, hemoglobin 12.4, hematocrit 37.2, platelets 227,000. CMP is within normal limits. CEA and CA 27.29 are pending. IMPRESSION AND PLAN The patient is a 37-year-old female diagnosed with triple-positive breast cancer in 2012, metastatic to bone only. She has been on tamoxifen, Herceptin and Perjeta since 2014. Tamoxifen changed to anastrozole on February 04, 2018. 1. Breast cancer. Continue Herceptin and Perjeta. She is tolerating this well. Dr. Gastelum has discussed changing Herceptin to Kadcyla. She will meet with her on April 02, 2018 after PET scan. 2. Response. CA 27.29 has been increasing since December 2017, last 92.7 on March 04, 2018. This is pending today. As above, Dr. Gastelum is considering changing therapy to Kadcyla but will review this with her. 3. Hormone therapy. Continue anastrazole. She is tolerating this very well. She has had no arthralgias/joint pain. She has minimal hot flashes. 4. Bone health. Last vitamin D level was 17. She continues on calcium and vitamin D3 5,000 international units daily. Will repeat bone density in April 2017. 5. Cardiac. Echocardiogram on December 18, 2017 showed a stable ejection fraction of 65-70%. This will be repeated on March 30, 2018. 6. Headaches, intermittent. CT of the head on January 20, 2018 was negative. 7. Bone metastases. CT of the neck on January 20, 2018 showed a new T1 lesion, consistent with metastatic disease. As above, Dr. Gastelum is repeating the PET scan on April 02, 2018. 8. Follow up with Dr. Perez on April 12, 2018 for continued care, earlier if there is a problem. [facility]
[2018-04-12 08:08] VITALS: BP 117/80
--- NOTE | 2018-04-12 09:17 | [facility] ONCOLOGY NOTE ---
EVENT DATE: April 12, 2018 CHIEF COMPLAINT/REASON FOR VISIT Ms. Clifton is a very pleasant 37-year old female with metastatic triple positive breast cancer here for followup. She is currently on Herceptin, Perjeta and anastrozole. HISTORY OF PRESENT ILLNESS Ani returns. She received Herceptin and Perjeta two weeks ago. In January 2018, she transitioned from Tamoxifen to anastrozole. We had a PET scan in late March 2018 which showed two small subcentimeter areas in the lung as well as progressive bone disease. As a result, we would like to transition her to Kadcyla. She can continue the anastrozole. She had expanders replaced with implants in [place] on April 08, 2017, and is recovering from this surgery. She has what appears to be a drug rash over this area and around this area but is not consistent with infection. I am concerned she may have had reaction to a topical agent such as an antibiotic. She is also on an antibiotic and she may be having a mild reaction to this. It does not appear to be infection. ONCOLOGY HISTORY Presented with a right breast mass in March 2012. Ultrasound showed a hypoechoic lesion with spiculation as well as a large lymph node in the right axilla. Biopsy of the breast mass was grade 2, ER diffusely positive, [place] focally positive, and HER2 amplified invasive ductal carcinoma with associated DCIS. Right axillary node was positive for malignancy. Noted to have focal hypermetabolic lesions in T1 and T9, consistent with metastases. She underwent palliative treatment with pertuzumab and docetaxel from April 2012 through December 2012. Imaging in 2014 and 2015 showed no evidence of recurrence. She has been maintained on tamoxifen, pertuzumab, and Herceptin since 2014. Tamoxifen changed to anastrozole on February 04, 2018. MEDICAL HISTORY Metastatic right breast cancer 2012. SURGICAL HISTORY 1. JANICE-BSO, June 2016. 2. Bilateral mastectomy with implant reconstruction, July 2017. FAMILY HISTORY Mother and maternal aunt had breast cancer. Patient is BRCA negative. SOCIAL HISTORY Patient is . She is from [facility] [place]. She has two daughters, ages 9 and 11. At the time of this dictation, she is not working. She does not smoke or drink alcohol. MEDICATIONS 1. Anastrozole 1 mg daily. 2. Fluticasone. 3. Vitamin D3, 5000 International Units daily. ALLERGIES CHLORHEXIDINE and NYSTATIN. REVIEW OF SYSTEMS CONSTITUTIONAL: No fevers, chills or weight change. HEENT: no headache or vision changes. CARDIOVASCULAR: No chest pain, dyspnea on exertion or edema. RESPIRATORY: No shortness of breath, wheeze or cough. GI: No nausea or vomiting. : No dysuria or hematuria. MUSCULOSKELETAL: No weakness or joint pain. PSYCHIATRIC: No anxiety or depression. ENDOCRINE: No head or cold intolerance. SKIN: Positive rash. No other concerning findings. Remainder of 14-point review of systems otherwise negative. PHYSICAL EXAMINATION VITAL SIGNS: Blood pressure excellent at 117/80, pulse 99, respiratory rate 16, temperature 97.3 Fahrenheit, oxygen saturation 98% on room air, weight 80.6 kg. Pain 4/10, fatigue 0/10. GENERAL: Stable condition, resting comfortably in the chair. CARDIOVASCULAR: Regular rate and rhythm. LUNGS: Clear to auscultation bilaterally. No abnormal sounds heard in any quadrant. BREASTS: Full breast exam deferred, recent surgery. SKIN: The patient does have a macular papular, slightly pruritic rash between and below the breasts bilaterally, consistent with a mild allergic reaction of some kind. Remainder of physical exam otherwise unremarkable. IMPRESSION/REPORT/PLAN Ms. Clifton is a very pleasant 37-year-old female with the followin. Metastatic triple positive breast cancer. She has slight progression on the most recent PET scan and we will change her treatment to Kadcyla. This is consistent with her rising CA27.29 as well. She will continue the hormonal therapy, anastrozole. 2. Bone health. She is taking calcium and vitamin D due to low vitamin D. Bone density due later this year. 3. Cardiac echocardiogram looks excellent in late 2018. 4. Bone metastases. No new pain, thankfully. 5. I answered all of her many questions today. We will see her at least monthly, especially on this new therapy. She prefers to follow with Dr. Gastelum as well and will see her at some point in the future as well. I answered all of their many questions today. We discussed slight differences in side effects between Kadcyla versus her existing regimen. Patient is concerned about the lung lesions and the fact that there are multi-millimeter air measurements with the PET scan and she would like to get an MRI. We will attempt to get this. With regards to the rash, we will add a steroid cream to help her. Billing: Return visit level 4. Total time 30 minutes, counseling time 20. MTDD
--- NOTE | 2018-04-16 09:55 | NUR ---
MATT contacted [employer] to find out if pt was still enrolled, since now we know her coverage has changed on her infusions of herceptin and perjeta. [employer] indicated she was still enrolled through Nov 09, 2018. MATT notified Insurance Auth person managing this account and she is preparing claims to be sent in.
[2018-04-22 14:49] VITALS: BP 141/88
[2018-04-22] MEDS: NS(*) 0.9% 500 ML BAG 500 ML IV PRN (15:31)
[2018-04-22] MEDS: HEPARIN FLSH (PORT) 500 UN/5ML IVP PRN (16:42)
[2018-04-22 16:55] VITALS: BP 131/88
--- NOTE | 2018-04-22 21:43 | ONCOLOGY CHEMO TEACHING ---
EVENT DATE: April 22, 2018 DIAGNOSIS Metastatic, triple positive breast cancer. CHIEF COMPLAINT Patient is seen today for chemotherapy teaching. A total of 60 minutes was spent with Ms. Clifton, 100% of which was [id number] counseling. HISTORY OF PRESENT ILLNESS Ani returns. She received Herceptin and Perjeta two weeks ago. In January 2018, she transitioned from Tamoxifen to anastrozole. We had a PET scan in late March 2018 which showed two small subcentimeter areas in the lung as well as progressive bone disease. As a result, we would like to transition her to Kadcyla. She can continue the anastrozole. She is due to initiate her first cycle with Kadcyla today. She had expanders replaced with implants in [place] on April 08, 2017, and is recovering from this surgery. She has what appears to be a drug rash over this area and around this area, but is not consistent with infection. I am concerned she may have had reaction to a topical agent such as an antibiotic. She is also on an antibiotic, and she may be having a mild reaction to this. It does not appear to be infection. ONCOLOGY HISTORY Presented with a right breast mass in March 2012. Ultrasound showed a hypoechoic lesion with spiculation as well as a large lymph node in the right axilla. Biopsy of the breast mass was grade 2, ER diffusely positive, [place] focally positive, and HER2 amplified invasive ductal carcinoma with associated DCIS. Right axillary node was positive for malignancy. Noted to have focal hypermetabolic lesions in T1 and T9, consistent with metastases. She underwent palliative treatment with pertuzumab and docetaxel from April 2012 through December 2012. Imaging in 2014 and 2015 showed no evidence of recurrence. She has been maintained on tamoxifen, pertuzumab, and Herceptin since 2014. Tamoxifen changed to anastrozole on February 04, 2018. PAST MEDICAL HISTORY Metastatic right breast cancer 2012. PAST SURGICAL HISTORY 1. JANICE-BSO, June 2016. 2. Bilateral mastectomy with implant reconstruction, July 2017. FAMILY HISTORY Mother and maternal aunt had breast cancer. Patient is BRCA negative. SOCIAL HISTORY Patient is . She is from [facility]. She has two daughters, ages 9 and 11. At the time of this dictation, she is not working. She does not smoke or drink alcohol. MEDICATIONS 1. Anastrozole 1 mg daily. 2. Fluticasone. 3. Vitamin D3, 5000 International Units daily. ALLERGIES CHLORHEXIDINE and NYSTATIN. DISCUSSION 1. A total of 60 minutes was spent in counseling today, 100% of which was face to face. At today's chemotherapy teaching session we discussed Ms. Clifton's diagnosis as well as the planned chemotherapy regimen and toxicities associated with Loiyla every three weeks. Handouts of each drug were provided and reviewed in detail. 2. Side effects and toxicities of chemotherapy agents included, but were not limited to: A. Bone marrow suppression, specifically neutropenia. Ms. Clifton is instructed to contact our offices with any signs of infection. CBC will be monitored routinely. We discussed common sense approaches including routine hand washing and avoidance of crowds/sick people if neutropenic. B. GI side effects. Discussed the possibility of nausea, vomiting, diarrhea and constipation. Ms. Clifton will receive IV antiemetics and will be prescribed antiemetics for home use. If Ms. Clifton were to have diarrhea, recommended Imodium. If Ms. Clifton were to have constipation, recommended Senna-S or MiraLAX routinely. Further interventions will be made based on side effects. C. side effects. Discussed the importance of adequate hydration (minimum 8 cups of fluid per day) and emptying the bladder on a regular basis. IV hydration can be scheduled as needed. D. Mouth sores. Recommended salt water or baking soda gargles as needed. E. Skin toxicity. Discussed that chemotherapy was very drying to the skin and mucous membranes. Recommended routine moisturizing as well as sun protection. F. Neurotoxicity. Discussed symptoms of peripheral neuropathy. Ms. Clifton will be monitored of these symptoms and will notify us if progressive. G. Alopecia. Explained that complete alopecia is not commonly seen. H. Fatigue. Discussed that this is one of the most common complaints of patients undergoing chemotherapy. I have encouraged Ms. Clifton to remain as active as possible, taking frequent rests as needed. I. Infusion reaction. Reviewed IV premedications. Ms. Clifton will be monitored closely during infusions. J. Reproductive Health: Discussed importance of preventing while on chemotherapy. Discussed control options and fertility preservation, also to abstain from sexual intercourse for two to three days after chemotherapy administration. 3. I have instructed the patient to call our office if she is prescribed any new medications. It is recommended that multiple supplements or herbal medications may not be taken as these may interfere with the action of the chemotherapy. 4. Discussed dietary issues associated with chemotherapy including anorexia and changes in taste. A handout of nutrition information is given. 5. Office contact information ([phone]) is given. I have encouraged the patient to call with any issues regarding treatment. 6. A tour of the infusion room is given. Ms. Clifton is given a packet of information including all of the above. Treatment will begin today. 7. Maintenance: Discussed that she will continue to need repeat echocardiograms every three months with Kadcyla. 8. We did discuss the different side effects related to Kadcyla versus Herceptin, to include potential for nausea, potential for peripheral neuropathy, as well as the potential for transaminitis. Also discussed that diarrhea may be seen as well as constipation. Handouts were provided. MTDD
[~2018-05-05] VITALS: Ht 157.5 cm; Wt 80.7 kg
[~2018-05-05 08:10] MED LIST changes: +ADO TRASTUZUMAB EMTANSINE IV ONE; +ALTEPLASE RECOMB 2 MG VIAL IVP PRN; +DEXTROSE 5%(*) 100 ML BAG 100 ML IVPB PRN; -GADOBENATE 529MG/1ML 15ML VIAL IVP ONE; +LIDOCAINE/SOD BICARB 8.4% SYR ID PRN; +NS 0.9% IV ONE; +NS 0.9% IVPB ONE; +NS(*) 0.9% 100 ML BAG 100 ML IVPB PRN; +PERTUZUMAB IVPB ONE; +TRASTUZUMAB IVPB ONE; +WATER FOR INJ,STERILE 20 ML IVP PRN
[2018-05-05 08:11] VITALS: BP 126/81
[2018-05-05] MEDS: HEPARIN FLSH (PORT) 500 UN/5ML IVP PRN (14:43)
--- NOTE | 2018-05-05 16:02 | RADIOLOGY IMAGING REPORT ---
[place] [facility] [place] NAME: Kyra Clifton : 1980 MR: [id number] V: [id number] EXAM DATE: ORDERING PHYSICIAN: BRISA HEWITT TECHNOLOGIST: Location: [facility] - [place] Patient: Kyra Clifton : 1980 Visit/Account:[id number] Date of Sevice: 05/05/2018 Examination: MR brain without and with contrast History: History of breast cancer Comparison: Head CT 01/20/2018, brain MR May 28, 2016 Technique: Multiplane MR imaging was performed through the brain without and with contrast. 14 cc IV multihance was administered. Findings: Diffusion: None Ventricles: Normal Midline shift: None Extraxial fluid: None Midline craniocervical structures: Normal Parenchyma: A few punctate unchanged white matter high signal foci. Enhancement: No pathologic enhancement Vascular flow voids: Normal Orbits and paranasal sinuses: Right maxillary sinus mucous retention cyst as before. Other: Trace bilateral mastoid fluid is new on the right unchanged on the left. Impression: 1. No metastatic disease. 2. Unremarkable brain MR without and with contrast. Report Dictated By: Jim Avila MD at 05/05/2018 3:49 PM Report E-Signed By: Jim Avila MD at 05/05/2018 3:56 PM WSN:[id number]
== END 2018-06-01 ==
LOC: SPU 08:10
PROVIDERS: ATTEND Internal Medicine
DX: Z51.11 Encounter for antineoplastic chemotherapy (principal); C50.411 Malignant neoplasm of upper-outer quadrant of right female breast; C79.51 Secondary malignant neoplasm of bone; Z17.0 Estrogen receptor positive status [ER+]; R51 Headache; E55.9 Vitamin D deficiency, unspecified; Z78.0 Asymptomatic menopausal state
CPT/HCPCS: 36415; 70553; 82378; 82670; 83001; 84443; 85027; 86300; 96413; 96417; 99212; A9577; J1642; J7040; J7050; J9306; J9354; J9355; Q0163; 82040; 82247; 82310; 82374; 82435; 82565; 82947; 84075; 84132; 84155; 84295; 84450; 84460; 84520

== ENCOUNTER → 2018-05-05 | Outpatient (CLI) | payer OTHER ==
[~2018-05-05] MED LIST changes: +GADOBENATE 529MG/1ML 15ML VIAL IVP ONE; -IOPAMIDOL 76% 150 ML INFUS BTL 150 ML ONE; -NS 0.9% 25 ML BAG 50 ML ONE
--- NOTE | 2018-05-05 09:07 | RADIOLOGY IMAGING REPORT ---
FACILITY: [facility] PATIENT NAME: Kyra Clifton : 1980 MR: [id number] V: [id number] EXAM DATE: ORDERING PHYSICIAN: CINDY MATHUR TECHNOLOGIST: Location: [facility] [place] Patient: Kyra Clifton : 1980 Visit/Account:[id number] Date of Sevice: 05/05/2018 DEXA Scan Clinical history: Screening. Comparison: . 04/18/2016 LUMBAR SPINE: The bone mineral density (BMD) measured from L1-L4 correlates with a Z-score of -0.3 and a T-score of 2.0 which is within normal range as defined by the World Health Organization. The corresponding risk of fracture in the lumbar spine is not increased compared with a young adult reference population. This value has decreased by 1.8 % since the prior study. More than 5% change is considered significant. HIP: Bone mineral density (BMD) measured in the Left Total Hip region correlates with a Z-score of -0.5 an d a T-score of -0.4. The T-score of the femoral neck is -0.6. The lower of the two T-scores is within normal range as defined by the World Health Orga nization. The corresponding risk of fracture in the hip is not increased compared with a young adult reference population. This value has increased by 2.1 % since the prior study. More than 5% change is considered significant. Bone mineral density (BMD) measured in the Left Femoral Neck region measures 0.953 g/cm?. IMPRESSION: 1. Lumbar spine: Within normal range. There has been no significant change in the bone mineral den sity since the previous exam. 2. Left Total Hip: Within normal range. There has been no significant change in the bone mineral de nsity since the previous exam. The next DEXA scan of this patient should include the following sites: L1-L4 and Left hip. FRAX? WHO Fracture Risk Assessment Tool link: <http://www.shef.ac.uk/FRAX/tool.jsp?locationValue=9> PLEASE NOTE: 1) The World Health Organization defines low BMD as follows: T-score Normal > -1 Osteopenia < -1 and > -2.5 Osteoporosis < -2.5 without fractures Established osteoporosis < -2.5 with fractures 2) In general, you may wish to consider: Diagnosis Treatment Follow-up DEXA Normal BMD Prevention 2-3 years Osteopenia Prevention/therapy 1-2 years Osteoporosis Therapy Yearly 3) Fracture risk estimated from the T-score is more accurate for vertebral fractures (often spontane ous) than for hip fractures. Report Dictated By: Clemente Castelan MD at 05/05/2018 8:58 AM Report E-Signed By: Clemente Castelan MD at 05/05/2018 9:02 AM WSN:[email or web address]
--- NOTE | 2018-05-05 16:14 | RADIOLOGY IMAGING REPORT ---
[place] [facility] [place] NAME: Kyra Clifton : 1980 MR: [id number] V: [id number] EXAM DATE: ORDERING PHYSICIAN: CINDY MATHUR TECHNOLOGIST: Location: [facility] - [place] Patient: Kyra Clifton : 1980 Visit/Account:[id number] Date of Sevice: 05/05/2018 EXAMINATION: MR SPINE CERVICAL W/ & W/O CON INDICATION: Breast cancer COMPARISON: Thoracic spine MR May 13, 2016 TECHNIQUE: Multiplane MR imaging was performed through the cervical spine without and with contrast. 14 ml multihance injected. FINDINGS: Vertebral bodies and posterior elements: Normal cervical vertebral bodies and posterior elements. Ne w 1.5 cm lesion within the left T1 vertebral body. T1 spinous process metastasis with extension into the bilateral T1 articular pillars and extension into the adjacent soft tissues has increased in siz e. New involvement of the bilateral T1 transverse processes. Minimal dural thickening is seen in the posterior canal at C6-T1 which has slightly increased. Cord signal: Normal Prevertebral and paraspinal soft tissues: See comments above, otherwise unremarkable. C2-3: Normal C3-4: Normal C4-5: Normal C5-6: Minimal disc bulge, minimal canal narrowing, otherwise normal. C6-7: Mild right foraminal narrowing, otherwise normal. C7-T1: Normal IMPRESSION: 1. Interval increase in size of the T1 spinous process and bilateral T1 articular pillar metastasis. New malignant involvement of the bilateral T1 transverse processes. 2. New 1.5 cm left T1 vertebral body metastasis. 3. Thin reactive posterior dural enhancement at C6-T1 has slightly increased and results in no canal narrowing. 4. No significant canal narrowing. No cord compression. Report Dictated By: Jim Avila MD at 05/05/2018 3:58 PM Report E-Signed By: Jim Avila MD at 05/05/2018 4:09 PM WSN:[id number]
== END ==
LOC: MRI 00:39
PROVIDERS: ATTEND Internal Medicine Medical Oncology
DX: C79.51 Secondary malignant neoplasm of bone (principal)
CPT/HCPCS: 72156; 77080; A9577

== ENCOUNTER → 2018-08-03 | Outpatient (CLI) | payer OTHER ==
[~2018-08-03] MED LIST changes: -ADO TRASTUZUMAB EMTANSINE IV ONE; -ALTEPLASE RECOMB 2 MG VIAL IVP PRN; -DEXTROSE 5%(*) 100 ML BAG 100 ML IVPB PRN; -LIDOCAINE/SOD BICARB 8.4% SYR ID PRN; -NS 0.9% IV ONE; -NS 0.9% IVPB ONE; -NS(*) 0.9% 100 ML BAG 100 ML IVPB PRN; -PERTUZUMAB IVPB ONE; -TRASTUZUMAB IVPB ONE; -WATER FOR INJ,STERILE 20 ML IVP PRN
--- NOTE | 2018-08-03 16:05 | RADIOLOGY IMAGING REPORT ---
[place] [facility] [place]: Kyra Clifton : 1980 MR: [id number] V: [id number] EXAM DATE: ORDERING PHYSICIAN: CINDY MATHUR TECHNOLOGIST: Location: [facility] - [place] Patient: Kyra Clifton : 1980 Visit/Account:[id number] Date of Sevice: 08/03/2018 THYROID HISTORY: Anterior neck pain COMPARISON: March 27, 2017 FINDINGS: SIZE: Right lobe: 5 x 1.2 x 1.8 cm Left lobe: 4.5 x 0.8 x 1.5 cm Isthmus: 3 mm PARENCHYMA: Homogeneous. NODULES: Right lobe: * None discrete. Left lobe: * None discrete. The previously noted large left thyroid nodule is not identified on the current ex amination Isthmus: * None discrete. VASCULARITY: Within normal limits. ADDITIONAL FINDINGS: None. IMPRESSION: Previously noted large left thyroid nodules not identified on the current examination. Study appears unremarkable REFERENCE: 2015 [place] [employer] Management Guidelines for Adult Patients with Thyroid Nodules and D ifferentiated Thyroid Cancer: The [place] [employer] Guidelines Task Force on Thyroid Nodul es and Differentiated Thyroid Cancer. SONOGRAPHIC PATTERNS: * Benign: Purely cystic nodules (no solid component); estimated risk of malignancy <1 percent; no bi opsy recommended. * Very Low Suspicion: Spongiform or partially cystic nodules without any of the sonographic features described in low, intermediate, or high suspicion patterns; estimated risk of malignancy <3 percent; consider FNA at > 2 cm (Observation without FNA is also a reasonable option). * Low Suspicion: Isoechoic or hyperechoic solid nodule, or partially cystic nodule with eccentric so lid areas, without microcalcification, irregular margin or ETE (extra-thyroidal extension), or taller than wide shape; estimated risk of malignancy 5-10 percent; recommend FNA at >1.5 cm. * Intermediate Suspicion: Hypoechoic solid nodule with smooth margins without microcalcifications, E TE (extra-thyroidal extension), or taller than wide shape; estimated risk of malignancy 10-20 percent ; recommend FNA at > 1 cm. * High Suspicion: Solid hypoechoic nodule or solid hypoechoic component of a partially cystic nodule with one or more of the following features: irregular margins (infiltrative, microlobulated), microc alcifications, taller than wide shape, rim calcifications with small extrusive soft tissue component, evidence of ETE (extra-thyroidal extension); estimated risk of malignancy >70-90 percent; recommend FNA at > 1 cm. NOTES: * Although a sonographically suspicious subcentimeter thyroid nodule without evidence of extrathyroi marlo extension or sonographically suspicious lymph nodes may be observed with close sonographic follow -up rather than pursuing immediate FNA, patient age and preference may modify decision-making. A > 50% interval increase in nodule volume and/or development of new suspicious sonographic features are felt to be a valid reasons for potential re-aspiration of a nodule previously shown to have benig n FNA cytology. Report Dictated By: Lissette Gonzales MD at 08/03/2018 3:55 PM Report E-Signed By: Lissette Gonzales MD at 08/03/2018 4:00 PM WSN:[email or web address]
== END ==
LOC: US 00:44
PROVIDERS: ATTEND Internal Medicine Medical Oncology
DX: E04.2 Nontoxic multinodular goiter (principal); M54.2 Cervicalgia
CPT/HCPCS: 76536; 93306